=== PATIENT | male | born 1955 | race American Indian/Alaskan Native ===

== ENCOUNTER 2020-09-07 12:16 | Inpatient (IN) | payer OTHER ==
[2020-09-07] MEDS ORDERED: cloNIDine 0.1 MG TAB PO ONE (14:52)
[2020-09-07] MEDS ORDERED: KETOROLAC 30 MG/1 ML INJ IV ONE (15:11)
--- NOTE | 2020-09-07 15:13 | Emergency Department Report ---
- General Chief complaint: Weakness Stated complaint: HIP PAIN Time Seen by Provider: 09/07/20 14:19 Source: patient, EMS Mode of arrival: Stretcher Limitations: Physical Limitation - History of Present Illness Initial comments: 65-year-old male with a past medical history of hypertension and diabetes noncompliant with meds presents to the hospital with generalized weakness and f all. Patient overall is a very poor historian. Apparently he lives with his girlfriend who notified EMS. Patient states he has had generalized weakness and generalized muscle skeletal pain for greater 1 year and seems to have fallen several times recently. Patient states he needs walker assistance to ambulate but does not have much room in his residence for a walker since it is small and congested with objects. He apparently fell today and expressed left hip pain to nurse however, change the site to right hip. Patient also thinks year is 1995. But he knows his age, oriented to self, and knows he is in the hospital. Patient admits to noncompliance with his medications because he does not like taking tablets. He also admits to marijuana use. Patient primarily complains of generalized muscle skeletal pain as opposed to focal pain. Patient also denies infectious symptoms including cough or fever. Flexion do not have contact #4 his girlfriend. His sister call from [place] and I requested that she have the girlfriend called the ED since I do not have a way to contact her so that I might be to obtain additional collateral information - Related Data Allergies Allergy/AdvReac Type Severity Reaction Status Date / Time No Known Allergies Allergy Unverified 09/07/20 14:22 ED Review of Systems ROS: Stated complaint: HIP PAIN Other details as noted in HPI Comment: All other systems reviewed and negative ED Past Medical Hx - Past Medical History Hx Diabetes: Yes - Surgical History Past Surgical History?: No - Social History Smoking Status: Current Every Day Smoker Substance Use Type: Marijuana ED Physical Exam - General Limitations: Physical Limitation - Other Other exam information: General: No acute distress, thin appearing with Head: Atraumatic Eyes: normal appearance ENT: Moist mucous membranes Neck: Normal appearance, no midline tenderness Chest: Clear to auscultation bilaterally CV: Regular rate and rhythm Abdomen: Soft, normal bowel sounds, nontender, nondistended, no rebound or guarding Back: Normal inspection Extremity: Normal inspection, full range of motion, no muscle skeletal pain with movement of extremities including hips, knees, and ankles Neuro: Alert O x 2, no facial asymmetry, speech clear, no gross motor sensory deficit Psych: Appropriate behavior Skin: Discoid hyperpigmented areas to bilateral upper extremities. Loose skin over abdomen ED Course Vital Signs 09/07/20 09/07/20 14:12 15:23 Temperature 98.5 F Pulse Rate 66 70 Respiratory 18 Rate Blood Pressure 198/134 177/81 O2 Sat by Pulse 99 Oximetry - Consultations Consultation #1: 09/07/20 17:[address] Ignacio on-call assembler fishing floats who recommends calcitonin 4 units/kg twice daily for hypercalcemia. He will consult on the patient during admission ED Medical Decision Making - Lab Data Result diagrams: 09/07/20 15:28 09/07/20 17:01 Lab Results 09/07/20 09/07/20 09/07/20 Range/Units 14:40 15:28 15:28 WBC 9.0 (4.5-11.0) K/mm3 RBC 3.59 L (3.65-5.03) M/mm3 Hgb 10.2 L (11.8-15.2) gm/dl Hct 30.4 L (35.5-45.6) % MCV 85 (84-94) fl MCH 28 (28-32) pg MCHC 34 (32-34) % RDW 13.6 (13.2-15.2) % Plt Count 356 (140-440) K/mm3 Lymph % (Auto) 18.2 (13.4-35.0) % Williamson % (Auto) 7.5 H (0.0-7.3) % Eos % (Auto) 1.6 (0.0-4.3) % Baso % (Auto) 0.4 (0.0-1.8) % Lymph # (Auto) 1.6 (1.2-5.4) K/mm3 Williamson # (Auto) 0.7 (0.0-0.8) K/mm3 Eos # (Auto) 0.1 (0.0-0.4) K/mm3 Baso # (Auto) 0.0 (0.0-0.1) K/mm3 Seg Neutrophils % 72.3 H (40.0-70.0) % Seg Neutrophils # 6.5 (1.8-7.7) K/mm3 Sodium 135 L (137-145) mmol/L Potassium 2.8 L* (3.6-5.0) mmol/L Chloride 94.9 L (98-107) mmol/L Carbon Dioxide 30 (22-30) mmol/L Anion Gap 13 mmol/L BUN 21 H (9-20) mg/dL Creatinine 1.1 (0.8-1.3) mg/dL Estimated GFR > 60 ml/min BUN/Creatinine Ratio 19 % Glucose 97 (75-100) mg/dL POC Glucose 87 (70-105) mg/dL Calcium > 13.0 H* (8.4-10.2) mg/dL Magnesium (1.7-2.3) mg/dL Total Bilirubin 0.20 (0.1-1.2) mg/dL AST 38 (5-40) units/L ALT 17 (7-56) units/L Alkaline Phosphatase 126 (35-129) units/L Total Creatine Kinase 146 (55-170) units/L Troponin T 0.014 (0.00-0.029) ng/mL Total Protein 6.5 (6.3-8.2) g/dL Albumin 3.5 L (3.9-5) g/dL Albumin/Globulin Ratio 1.2 % TSH (0.270-4.200) mlU/mL Free T4 (0.76-1.46) ng/dL Plasma/Serum Alcohol (0-0.07) % 09/07/20 09/07/20 09/07/20 Range/Units 15:28 15:28 15:35 WBC (4.5-11.0) K/mm3 RBC (3.65-5.03) M/mm3 Hgb (11.8-15.2) gm/dl Hct (35.5-45.6) % MCV (84-94) fl MCH (28-32) pg MCHC (32-34) % RDW (13.2-15.2) % Plt Count (140-440) K/mm3 Lymph % (Auto) (13.4-35.0) % Williamson % (Auto) (0.0-7.3) % Eos % (Auto) (0.0-4.3) % Baso % (Auto) (0.0-1.8) % Lymph # (Auto) (1.2-5.4) K/mm3 Williamson # (Auto) (0.0-0.8) K/mm3 Eos # (Auto) (0.0-0.4) K/mm3 Baso # (Auto) (0.0-0.1) K/mm3 Seg Neutrophils % (40.0-70.0) % Seg Neutrophils # (1.8-7.7) K/mm3 Sodium (137-145) mmol/L Potassium (3.6-5.0) mmol/L Chloride (98-107) mmol/L Carbon Dioxide (22-30) mmol/L Anion Gap mmol/L BUN (9-20) mg/dL Creatinine (0.8-1.3) mg/dL Estimated GFR ml/min BUN/Creatinine Ratio % Glucose (75-100) mg/dL POC Glucose (70-105) mg/dL Calcium (8.4-10.2) mg/dL Magnesium 1.30 L (1.7-2.3) mg/dL Total Bilirubin (0.1-1.2) mg/dL AST (5-40) units/L ALT (7-56) units/L Alkaline Phosphatase (35-129) units/L Total Creatine Kinase (55-170) units/L Troponin T (0.00-0.029) ng/mL Total Protein (6.3-8.2) g/dL Albumin (3.9-5) g/dL Albumin/Globulin Ratio % TSH 2.730 (0.270-4.200) mlU/mL Free T4 1.34 (0.76-1.46) ng/dL Plasma/Serum Alcohol < 0.01 (0-0.07) % - EKG Data -: EKG Interpreted by Me (Multiple PVCs, nonspecific intraventricular delay) EKG shows normal: sinus rhythm, ST-T waves (no stemi) Rate: normal (69) - EKG Data When compared to previous EKG there are: previous EKG unavailable - Radiology Data Radiology results: report reviewed 1 view chest x-ray: Left upper lobe pneumonia versus atelectasis Pelvis x-ray: No acute findings CT Head: naf - Medical Decision Making Patient with a past medical history of hypertension diabetes with long-term medication compliance presents to the hospital long-term generalized weakness and recent frequent falls. Patient complains of pain all over without focal complaint. Patient also complains of a cough without fever. Chest x-ray reveals infiltrate. Lab severe significant electrolyte abnormalities including hypokalemia, hypomagnesemia, and hyperkalemia. IV magnesium and p.o. potassium provided. EKG shows a nonspecific intraventricular block. Patient received clonidine for hypertension. At time of disposition UA pending. Patient will be admitted to the hospital service for further treatment including management of hypercalcemia. IV fluids initiated in ed for hypercalcemia. Calcitonin 4 units/kg twice daily initiated as recommended by assembler fishing floats. Patient received Rocephin azithromycin for community-acquired pneumonia and Covid test/order set initiated secondary to infiltrate on chest x-ray. Critical Care Time: No Critical care attestation.: If time is entered above; I have spent that time in minutes in the direct care of this critically ill patient, excluding procedure time. ED Disposition Clinical Impression: Generalized weakness, Hypercalcemia, Hypomagnesemia, Hypokalemia, Pneumonia, Chronic hypertension, Diabetes, Confusion Disposition: OP ADMIT IP TO THIS HOSP Is pt being admited?: Yes Condition: Stable Instructions: Diabetes Mellitus Type 2 in Adults (ED), Bacterial Pneumonia (ED), Hypertension (ED) Referrals: PRIMARY CARE, [Primary Care Provider] - 3-5 Days Time of Disposition: 17:28 (DR faye/hospitalist)
--- NOTE | 2020-09-07 15:38 | XRay Report ---
CHEST 1 VIEW 09/07/2020 2:28 PM INDICATION / CLINICAL INFORMATION: cough. COMPARISON: None available. FINDINGS: SUPPORT DEVICES: None. HEART / MEDIASTINUM: No significant abnormality. LUNGS / PLEURA: Platelike atelectasis in the left lung base. Developing consolidation versus atelecta sis in the left upper lobe. No pneumothorax. ADDITIONAL FINDINGS: No significant additional findings. IMPRESSION: 1. Findings suggestive of developing left upper lobe pneumonia. Recommend clinical correlation and co ntinued follow-up until resolution. Signer Name: Mani Jj MD Signed: 09/07/2020 3:34 PM Workstation Name: [id number]
--- NOTE | 2020-09-07 15:39 | XRay Report ---
PELVIS 1 VIEW(S) INDICATION / CLINICAL INFORMATION: fall, b/l hip pain COMPARISON: None available. FINDINGS: BONES / JOINT(S): No acute fracture or subluxation. No significant arthritis. SOFT TISSUES: No significant abnormality. ADDITIONAL FINDINGS: None. Signer Name: Mani Jj MD Signed: 09/07/2020 3:34 PM Workstation Name: [id number]
[2020-09-07 15:47] LABS: Basophils % (Auto) 0.4 % (0.0-1.8); Eosinophils # (Auto) 0.1 K/mm3 (0.0-0.4); Eosinophils % (Auto) 1.6 % (0.0-4.3); Hematocrit 30.4 % (35.5-45.6); Hemoglobin 10.2 gm/dl (11.8-15.2); Lymphocytes # (Auto) 1.6 K/mm3 (1.2-5.4); Lymphocytes % (Auto) 18.2 % (13.4-35.0); Mean Corpuscular HGB Conc 34 % (32-34); Mean Corpuscular Volume 85 fl (84-94); Monocytes # (Auto) 0.7 K/mm3 (0.0-0.8); Monocytes % (Auto) 7.5 % (0.0-7.3); Platelet Count 356 K/mm3 (140-440); Red Blood Count 3.59 M/mm3 (3.65-5.03); Red Cell Distribution Width 13.6 % (13.2-15.2)
[2020-09-07 16:04] LABS: Alanine Aminotransferase 17 units/L (7-56); Albumin 3.5 g/dL (3.9-5); BUN/Creatinine Ratio 19; Blood Urea Nitrogen 21 mg/dL (9-20); Hemolysis Index 2
[2020-09-07 16:10] LABS: Free T4 (Free Thyroxine) 1.34 ng/dL (0.76-1.46)
[2020-09-07 16:17] LABS: Calcium > 13.0 mg/dL (8.4-10.2)
--- NOTE | 2020-09-07 16:35 | Cat Scan Report ---
CT head/brain wo con INDICATION / CLINICAL INFORMATION: 65 years Male; Recent falls, mild confusion. TECHNIQUE: Routine CT head without contrast. All CT scans at this location are performed using CT dos e reduction for ALARA by means of automated exposure control. COMPARISON: None. FINDINGS: BRAIN / INTRACRANIAL CONTENTS: No acute hemorrhage, mass effect, midline shift, hydrocephalus, or acu te, large territorial infarct. Mild cerebral atrophy. Moderate degree of hippocampal atrophy suggested bilaterally. There are mild areas of decreased attenuation in the white matter of the cerebral hemispheres. These are nonspecific findings and may be related to microangiopathy (hypertension, diabetes, atheroscleros is), given the patient's age. CRANIOCERVICAL JUNCTION: No significant abnormality. ORBITS: No significant abnormality of visualized orbits. SINUSES / MASTOIDS: Small mucous retention cyst/polyp seen in the maxillary antra. ADDITIONAL FINDINGS: Subcutaneous soft tissue swelling seen along the posterior calvarium-would quest ion prior trauma in these regions. No signs of underlying calvarial fracture appreciated. Bilateral temporomandibular joint disease noted. IMPRESSION: 1. No focal mass, intracranial hemorrhage, hydrocephalus, or acute, large territorial infarct. Signer Name: Jovani Cruz MD, III Signed: 09/07/2020 4:30 PM Workstation Name: [id number]
[2020-09-07] MEDS ORDERED: POTASSIUM CHLORIDE ER 20 MEQ TAB PO ONE (16:38)
[2020-09-07] MEDS ORDERED: AZITHROMYCIN/NS 500 MG/250 ML 500 MG/250 ML BAG IV ONE (16:41)
[2020-09-07] MEDS ORDERED: cefTRIAXone/NS 2 GM/100 ML 2 GM/100 ML BAG IV ONE (16:41)
[2020-09-07] MEDS ORDERED: SODIUM CHLORIDE 0.9% 1000 ML 1,000 ML IV ONE (17:11)
[2020-09-07] MEDS ORDERED: SODIUM CHLORIDE 0.9% 250ML 250 ML IV ONE (17:12)
[2020-09-07 17:36] LABS: C-Reactive Protein 1.6 mg/dL (0.00-1.30)
[2020-09-07] MEDS ORDERED: SODIUM CHLORIDE 0.45% 1000 ML 1,000 ML IV SCH (18:00)
[2020-09-07] MEDS ORDERED: FUROSEMIDE 40 MG/4 ML INJ IV NR (18:04)
--- NOTE | 2020-09-07 18:08 | History and Physical Report ---
History of Present Illness Date of examination: 09/07/20 Chief complaint: Weakness History of present illness: 65-year-old male with history of hypertension and diabetes noncompliant with meds was brought to the hospital with generalized weakness and fall. Patient overall is a very poor historian. Apparently he lives with his girlfriend who notified EMS. Patient complained of generalized weakness and generalized muscle skeletal pain for greater 1 year and seems to have fallen several times recently. Patient states he needs walker assistance to ambulate . He apparently fell today and expressed left hip pain to nurse however, change the site to right hip. Patient also thinks year is 1995. Patient is confused. He also admits to marijuana use. Patient primarily complains of generalized muscle skeletal pain as opposed to focal pain. Patient also denies infectious symptoms including cough or fever. In the emergency room patient is found to have left-sided pneumonia also patient potassium is 2.8 calcium is 13.2 magnesium 1.3 and albumin 3.5 Past History Past Medical History: diabetes, hypertension Medications and Allergies Allergies Allergy/AdvReac Type Severity Reaction Status Date / Time No Known Allergies Allergy Unverified 09/07/20 14:22 Active Meds: Active Medications Calcitonin [place] (Calcitonin,[place],Synthetic 400 Unit/2 Ml Inj Mdv) 200 unit 4 unit/kg (200 unit) IM Q12HR [facility] Famotidine (Famotidine 20 Mg Tab) 20 mg PO BID [facility] Heparin Sodium (Porcine) (Heparin 5,000 Unit/1 Ml Vial) 5,000 unit SUB-Q Q8HR [facility] Sodium Chloride (Nacl 0.45% 1000 Ml) 1,000 mls @ 75 mls/hr IV DIRECT [facility] Ceftriaxone Sodium (Rocephin/Ns 2 Gm/100 Ml) 2 gm in 100 mls @ 200 mls/hr IV Q24H [facility]; Protocol Azithromycin (Zithromax/Ns) 500 mg in 250 mls @ 250 mls/hr IV Q24H [facility]; Protocol Potassium Chloride (Kcl 10meq/100ml) 10 meq in 100 mls @ 100 mls/hr IV Q1H [facility] Stop: 09/07/20 23:59 Magnesium Sulfate (Magnesium Sulfate 2gm/50ml) 2 gm in 50 mls @ 25 mls/hr IV ONCE ONE Stop: 09/07/20 20:00 Review of Systems Constitutional: weakness Musculoskeletal: muscle weakness, frequent falls Exam - Constitutional Vitals: Temp Pulse Resp BP Pulse Ox 98.5 F 70 18 177/81 99 09/07/20 14:12 09/07/20 15:23 09/07/20 14:12 09/07/20 15:23 09/07/20 14:12 General appearance: Present: no acute distress, well-nourished - EENT Eyes: Present: PERRL ENT: hearing intact, clear oral mucosa - Neck Neck: Present: supple, normal ROM - Respiratory Respiratory effort: normal Respiratory: bilateral: diminished - Cardiovascular Heart Sounds: Present: S1 & S2. Absent: rub, click - Extremities Extremities: pulses symmetrical, No edema Peripheral Pulses: within normal limits - Abdominal General gastrointestinal: Present: soft, non-tender, non-distended, normal bowel sounds Male genitourinary: Present: normal - Integumentary Integumentary: Present: clear, warm, dry - Musculoskeletal Musculoskeletal: gait normal, strength equal bilaterally - Psychiatric Psychiatric: no appropriate mood/affect, no intact judgment & insight - Neurologic Neurologic: CNII-XII intact, moves all extremities HEART Score - HEART Score Troponin: Troponin T 0.014 ng/mL (0.00-0.029) 09/07/20 15:28 Results - Labs CBC & Chem 7: 09/07/20 15:28 09/07/20 17:01 Labs: Laboratory Last Values WBC 9.0 K/mm3 (4.5-11.0) 09/07/20 15: RBC 3.59 M/mm3 (3.65-5.03) L 09/07/20 15:28 Hgb 10.2 gm/dl (11.8-15.2) L 09/07/20 15:28 Hct 30.4 % (35.5-45.6) L 09/07/20 15:28 MCV 85 fl (84-94) 09/07/20 15: MCH 28 pg (28-32) 09/07/20 15: MCHC 34 % (32-34) 09/07/20 15:28 RDW 13.6 % (13.2-15.2) 09/07/20 15:28 Plt Count 356 K/mm3 (140-440) 09/07/20 15:28 Lymph % (Auto) 18.2 % (13.4-35.0) 09/07/20 15:28 Howell % (Auto) 7.5 % (0.0-7.3) H 09/07/20 15:28 Eos % (Auto) 1.6 % (0.0-4.3) 09/07/20 15: Baso % (Auto) 0.4 % (0.0-1.8) 09/07/20 15: Lymph # (Auto) 1.6 K/mm3 (1.2-5.4) 09/07/20 15: Howell # (Auto) 0.7 K/mm3 (0.0-0.8) 09/07/20 15: Eos # (Auto) 0.1 K/mm3 (0.0-0.4) 09/07/20: Baso # (Auto) 0.0 K/mm3 (0.0-0.1) 09/07/20 15: Seg Neutrophils % 72.3 % (40.0-70.0) H 09/07/20 15: Seg Neutrophils # 6.5 K/mm3 (1.8-7.7) 09/07/20 15:28 D-Dimer 472.35 ng/mlDDU (0-234) H 09/07/20 17:01 Sodium 135 mmol/L (137-145) L 09/07/20 15: Potassium 2.8 mmol/L (3.6-5.0) L* 09/07/20 15: Chloride 94.9 mmol/L (98-107) L 09/07/20 15: Carbon Dioxide 30 mmol/L (22-30) 09/07/20 15:28 Anion Gap 13 mmol/L 09/07/20 15:28 BUN 21 mg/dL (9-20) H 09/07/20 15:28 Creatinine 1.1 mg/dL (0.8-1.3) 09/07/20 15:28 Estimated GFR > 60 ml/min 09/07/20 15:28 BUN/Creatinine Ratio 19 % 09/07/20 15:28 Glucose 91 mg/dL (75-100) 09/07/20 17:01 POC Glucose 87 mg/dL (70-105) 09/07/20 14:40 Calcium > 13.0 mg/dL (8.4-10.2) H* 09/07/20 15: Magnesium 1.30 mg/dL (1.7-2.3) L 09/07/20 15: Ferritin 389.0 ng/mL (30.0-300.0) H 09/07/20 17: Total Bilirubin 0.20 mg/dL (0.1-1.2) 09/07/20 15: AST 38 units/L (5-40) 09/07/20 15: ALT 17 units/L (7-56) 09/07/20 15: Alkaline Phosphatase 126 units/L (35-129) 09/07/20 15: Lactate Dehydrogenase 335 units/L (91-180) H 09/07/20 17: Total Creatine Kinase 146 units/L (55-170) 09/07/20 15: Troponin T 0.014 ng/mL (0.00-0.029) 09/07/20: C-Reactive Protein 1.60 mg/dL (0.00-1.30) H 09/07/20 17: Total Protein 6.5 g/dL (6.3-8.2) 09/07/20 15: Albumin 3.5 g/dL (3.9-5) L 09/07/20 15: Albumin/Globulin Ratio 1.2 % 09/07/20 15: TSH 2.730 mlU/mL (0.270-4.200) 09/07/20 15: Free T4 1.34 ng/dL (0.76-1.46) 09/07/20: Plasma/Serum Alcohol < 0.01 % (0-0.07) 09/07/20 15: - Imaging and Cardiology CT Scan - head: image reviewed Assessment and Plan - Patient Problems (1) Pneumonia Current Visit: Yes Status: Acute Plan to address problem: Admit the patient to the medical telemetry. Put the patient on pneumonia pathway. Rocephin 1 g IV daily. Zithromax 500 mg IV daily. DuoNeb by nebulizer every 4 hours as needed. We do the blood culture and sputum culture. Reconsult infectious disease for evaluation of Covid. Recheck CBC BMP in the morning. Heparin 5000 units subcu every 8 hours for DVT prophylaxis and Protonix 40 mg p.o. daily for GI prophylaxis. Patient is a full code (2) Chronic hypertension Current Visit: Yes Status: Acute Plan to address problem: We will monitor the blood pressure closely we will resume the home medication (3) Diabetes Current Visit: Yes Status: Acute Plan to address problem: We will put the patient on 1800 kcal ADA diet. We also put the patient on a Humalog sliding scale Accu-Chek before meals and at bedtime moderate dose cover ing. Recheck CBC BMP in the morning (4) Generalized weakness Current Visit: Yes Status: Acute Plan to address problem: We will put the patient on multivitamin 1 tablet p.o. daily. We will consult nutrition for evaluation (5) Hypercalcemia Current Visit: Yes Status: Acute Plan to address problem: We put the patient on half-normal saline at the rate of 125 cc/h. We will give Lasix 40 mg IV x1 dose. We also put the patient on calcitonin. Will consult nephrology for evaluation and treatment. Recheck CBC BMP in the morning (6) Hypokalemia Current Visit: Yes Status: Acute Plan to address problem: We will put the patient on potassium IV 10 mEq x 6 dose. We will recheck the BMP in the morning (7) Hypomagnesemia Current Visit: Yes Status: Acute Plan to address problem: We are giving 2 g of magnesium we will recheck the magnesium in the morning. (8) DVT prophylaxis Current Visit: Yes Status: Acute Plan to address problem: Patient is on heparin 5000 units subcu every 8 hours for DVT prophylaxis.
[2020-09-07] MEDS ORDERED: MULTIVITAMINS ,THERAPEUTIC TAB PO ONE (18:14)
[2020-09-07] MEDS ORDERED: MAGNESIUM SULFATE 2 GM/50 ML BAG IV ONE (19:00)
[2020-09-07] MEDS: POTASSIUM CHLORIDE 10 MEQ 10 MEQ/100 ML BAG IV SCH ×2 (20:06→22:06)
[2020-09-07] MEDS ORDERED: fentaNYL 100 MCG/2 ML INJ IV ONE ×2 (20:37→22:34)
[2020-09-07 21:26] LABS: Bacteria,Urine 1+ /HPF (Negative); Bilirubin,Urine NEG (Negative); Blood,Urine NEG (Negative); Color,Urine Straw (Yellow); Protein,Urine <15 mg/dL mg/dL (Negative); Urobilinogen,Urine < 2.0 mg/dL (<2.0)
[2020-09-07 21:28] LABS: Amphetamine Screen,Urine Negative; Benzodiazepines Screen,Urine Negative; Cannabinoid Screen,Urine Negative; Cocaine Screen,Urine Negative; Methadone Screen,Urine Negative; Opiate Screen,Urine Negative
[2020-09-07] MEDS: INSULIN LISPRO 100 UNIT/ML SUB-Q SCH (22:55)
[2020-09-07] MEDS: FAMOTIDINE 20 MG TAB PO SCH (23:18)
[2020-09-07] MEDS: HEPARIN 5,000 UNIT/1 ML VIAL SUB-Q SCH (23:19)
[2020-09-08] MEDS: CALCITONIN,SALMON,SYNTHETIC 400 UNIT/2 ML INJ MDV IM SCH ×3 (00:17→22:55)
[2020-09-08] MEDS: POTASSIUM CHLORIDE 10 MEQ 10 MEQ/100 ML BAG IV SCH ×4 (00:18→05:28)
[2020-09-08] MEDS: HEPARIN 5,000 UNIT/1 ML VIAL SUB-Q SCH ×3 (05:27→22:10)
[2020-09-08] MEDS: SODIUM CHLORIDE 0.45% 1000 ML 1,000 ML IV SCH ×2 (05:28→07:35)
[2020-09-08] MEDS: INSULIN LISPRO 100 UNIT/ML SUB-Q SCH ×4 (07:36→22:05)
[2020-09-08] MEDS: DEXTROSE 50% IN WATER (25GM) 50 ML SYRINGE IV PRN (07:36)
[2020-09-08 08:24] LABS: Basophils % (Auto) 0.4 % (0.0-1.8); Eosinophils # (Auto) 0.1 K/mm3 (0.0-0.4); Eosinophils % (Auto) 1.7 % (0.0-4.3); Hematocrit 29.3 % (35.5-45.6); Lymphocytes # (Auto) 1.3 K/mm3 (1.2-5.4); Lymphocytes % (Auto) 16.3 % (13.4-35.0); Mean Corpuscular HGB Conc 34 % (32-34); Mean Corpuscular Volume 85 fl (84-94); Monocytes # (Auto) 0.5 K/mm3 (0.0-0.8); Monocytes % (Auto) 6.4 % (0.0-7.3); Platelet Count 311 K/mm3 (140-440); Red Blood Count 3.47 M/mm3 (3.65-5.03); Red Cell Distribution Width 14.1 % (13.2-15.2)
--- NOTE | 2020-09-08 08:28 | Progress Note ---
Assessment and Plan Assessment and plan: (1) Pneumonia Current Visit: Yes Status: Acute Plan to address problem: Admit the patient to the medical telemetry. Put the patient on pneumonia pathway. Rocephin 1 g IV daily. Zithromax 500 mg IV daily. DuoNeb by nebulizer every 4 hours as needed. We do the blood culture and sputum culture. Reconsult infectious disease for evaluation of Covid. Recheck CBC BMP in the morning. Heparin 5000 units subcu every 8 hours for DVT prophylaxis and Protonix 40 mg p.o. daily for GI prophylaxis. Patient is a full code (2) Chronic hypertension Current Visit: Yes Status: Acute Plan to address problem: We will monitor the blood pressure closely we will resume the home medication (3) Diabetes Current Visit: Yes Status: Acute Plan to address problem: We will put the patient on 1800 kcal ADA diet. We also put the patient on a Humalog sliding scale Accu-Chek before meals and at bedtime moderate dose covering. Recheck CBC BMP in the morning (4) Generalized weakness Current Visit: Yes Status: Acute Plan to address problem: We will put the patient on multivitamin 1 tablet p.o. daily. We will consult nutrition for evaluation (5) Hypercalcemia Current Visit: Yes Status: Acute Plan to address problem: We put the patient on half-normal saline at the rate of 125 cc/h. We will give Lasix 40 mg IV x1 dose. We also put the patient on calcitonin. Will consult nephrology for evaluation and treatment. Recheck CBC BMP in the morning (6) Hypokalemia Current Visit: Yes Status: Acute Plan to address problem: We will put the patient on potassium IV 10 mEq x 6 dose. We will recheck the BMP in the morning (7) Hypomagnesemia Current Visit: Yes Status: Acute Plan to address problem: We are giving 2 g of magnesium we will recheck the magnesium in the morning. (8) DVT prophylaxis Current Visit: Yes Status: Acute Plan to address problem: Patient is on heparin 5000 units subcu every 8 hours for DVT prophylaxis. 09/08/2020 -Patient is on IV antibiotics for pneumonia -Electrolyte replacement protocol, BMP from this morning is pending -PT OT evaluation -CT head is negative for acute intracranial findings -Confusion is likely due to metabolic encephalopathy -Blood sugar is within normal limits -Nephrology is consulted for the management of hypercalcemia -ID is consulted for the management of pneumonia, suspected Covid and Covid test is pending History Interval history: Patient was seen and evaluated this morning Patient is complaining generalized weakness, he said it has been going on for a while Hospitalist Physical - Physical exam Narrative exam: Not in cardiopulmonary distress. The patient appeared well nourished and normally developed. Vital signs as documented. Head exam is unremarkable. No scleral icterus . Neck is without jugular venous distension, thyromegaly, or carotid bruits. Lungs are clear to auscultation. Cardiac exam reveals regular rate and Rhythm. Abdominal exam reveals normal bowel sounds, nontender, no organomegaly. Extremities are nonedematous and both femoral and pedal pulses are normal. SPA ATTENDANT: Alert and oriented 3. No focal weakness. - Constitutional Vitals: Temp Pulse Resp BP Pulse Ox 97.6 F 73 17 152/79 100 09/08/20 05:05 09/08/20 05:05 09/08/20 05:05 09/08/20 05:05 09/08/20 05:05 General appearance: Present: no acute distress, well-nourished HEART Score - HEART Score Troponin: Troponin T 0.014 ng/mL (0.00-0.029) 09/07/20 15:28 Results - Labs CBC & Chem 7: 09/08/20 08:11 09/08/20 08:11 Labs: Laboratory Last Values WBC 8.3 K/mm3 (4.5-11.0) 09/08/20 08:11 RBC 3.47 M/mm3 (3.65-5.03) L 09/08/20 08:11 Hgb 10.0 gm/dl (11.8-15.2) L 09/08/20 08:11 Hct 29.3 % (35.5-45.6) L 09/08/20 08:11 MCV 85 fl (84-94) 09/08/20 08:11 MCH 29 pg (28-32) 09/08/20 08:11 MCHC 34 % (32-34) 09/08/20 08:11 RDW 14.1 % (13.2-15.2) 09/08/20 08:11 Plt Count 311 K/mm3 (140-440) 09/08/20 08:11 Lymph % (Auto) 16.3 % (13.4-35.0) 09/08/20 08:11 [place] % (Auto) 6.4 % (0.0-7.3) 09/08/20 08:11 Eos % (Auto) 1.7 % (0.0-4.3) 09/08/20 08:11 Baso % (Auto) 0.4 % (0.0-1.8) 09/08/20 08:11 Lymph # (Auto) 1.3 K/mm3 (1.2-5.4) 09/08/20 08:11 [place] # (Auto) 0.5 K/mm3 (0.0-0.8) 09/08/20 08:11 Eos # (Auto) 0.1 K/mm3 (0.0-0.4) 09/08/20 08:11 Baso # (Auto) 0.0 K/mm3 (0.0-0.1) 09/08/20 08:11 Seg Neutrophils % 75.2 % (40.0-70.0) H 09/08/20 08:11 Seg Neutrophils # 6.2 K/mm3 (1.8-7.7) 09/08/20 08:11 D-Dimer 472.35 ng/mlDDU (0-234) H 09/07/20 17:01 Sodium 135 mmol/L (137-145) L 09/07/20 15:28 Potassium 2.8 mmol/L (3.6-5.0) L* 09/07/20 15:28 Chloride 94.9 mmol/L (98-107) L 09/07/20 15:28 Carbon Dioxide 30 mmol/L (22-30) 09/07/20 15:28 Anion Gap 13 mmol/L 09/07/20 15:28 BUN 21 mg/dL (9-20) H 09/07/20 15:28 Creatinine 1.1 mg/dL (0.8-1.3) 09/07/20 15:28 Estimated GFR > 60 ml/min 09/07/20 15:28 BUN/Creatinine Ratio 19 % 09/07/20 15:28 Glucose 91 mg/dL (75-100) 09/07/20 17:01 POC Glucose 67 mg/dL (70-105) L 09/08/20 07:28 Calcium > 13.0 mg/dL (8.4-10.2) H* 09/07/20 15: Magnesium 1.30 mg/dL (1.7-2.3) L 09/07/20 15: Ferritin 389.0 ng/mL (30.0-300.0) H 09/07/20 17: Total Bilirubin 0.20 mg/dL (0.1-1.2) 09/07/20 15: AST 38 units/L (5-40) 09/07/20 15: ALT 17 units/L (7-56) 09/07/20 15: Alkaline Phosphatase 126 units/L (35-129) 09/07/20 15: Lactate Dehydrogenase 335 units/L (91-180) H 09/07/20 17: Total Creatine Kinase 146 units/L (55-170) 09/07/20 15: Troponin T 0.014 ng/mL (0.00-0.029) 09/07/20 15: C-Reactive Protein 1.60 mg/dL (0.00-1.30) H 09/07/20 17: Total Protein 6.5 g/dL (6.3-8.2) 09/07/20 15: Albumin 3.5 g/dL (3.9-5) L 09/07/20 15: Albumin/Globulin Ratio 1.2 % 09/07/20 15: TSH 2.730 mlU/mL (0.270-4.200) 09/07/20 15: Free T4 1.34 ng/dL (0.76-1.46) 09/07/20 15:28 Urine Color Straw (Yellow) 09/07/20 21: Urine Turbidity Clear (Clear) 09/07/20 21: Urine pH 7.0 (5.0-7.0) 09/07/20 21: Ur Specific [place] 1.005 (1.003-1.030) 09/07/20 21: Urine Protein <15 mg/dl mg/dL (Negative) 09/07/20 21: Urine Glucose (UA) Neg mg/dL (Negative) 09/07/20 21: Urine Ketones Neg mg/dL (Negative) 09/07/20 21: Urine Blood Neg (Negative) 09/07/20 21:05 Urine Nitrite Neg (Negative) 09/07/20 21:05 Urine Bilirubin Neg (Negative) 09/07/20 21:05 Urine Urobilinogen < 2.0 mg/dL (<2.0) 09/07/20 21:05 Ur Leukocyte Esterase Neg (Negative) 09/07/20 21:05 Urine WBC (Auto) 1.0 /HPF (0.0-6.0) 09/07/20 21:05 Urine RBC (Auto) 1.0 /HPF (0.0-6.0) 09/07/20 21:05 Urine Bacteria (Auto) 1+ /HPF (Negative) 09/07/20 21:05 Urine Opiates Screen Negative 09/07/20 21:05 Urine Methadone Screen Negative 09/07/20 21:05 Ur Barbiturates Screen Negative 09/07/20 21:05 Ur Phencyclidine Scrn Negative 09/07/20 21:05 Ur Amphetamines Screen Negative 09/07/20 21:05 U Benzodiazepines Scrn Negative 09/07/20 21:05 Urine Cocaine Screen Negative 09/07/20 21:05 U Marijuana (THC) Screen Negative 09/07/20 21:05 Drugs of Abuse Note Disclamer 09/07/20 21:05 Plasma/Serum Alcohol < 0.01 % (0-0.07) 09/07/20 15:28 Microbiology: Microbiology 09/07/20 17:01 Peripheral/Venous Blood Culture - Preliminary Culture in Progress 09/07/20 17:01 Peripheral/Venous Blood Culture - Preliminary Culture in Progress Monique/IV: Voiding Method Incontinent Active Medications - Current Medications Current Medications: Generic Name Dose Route Start Last Admin Trade Name Freq PRN Reason Stop Dose Admin Calcitonin [place] 200 unit 09/07/20 22:00 09/08/20 00:17 Calcitonin,[place],Synthetic 400 Unit/2 Ml Inj Mdv 4 unit/kg (200 unit) 200 unit IM Administration Q12HR [facility] Dextrose 50 ml 09/07/20 18:15 09/08/20 07:36 Dextrose 50% In Water (25gm) 50 Ml Syringe IV 50 ml Q30MIN PRN Administration Hypoglycemia Protocol Famotidine 20 mg 09/07/20 22:00 09/07/20 23:18 Famotidine 20 Mg Tab PO 20 mg BID [facility] Administration Heparin Sodium (Porcine) 5,000 unit 09/07/20 22:00 09/08/20 05:27 Heparin 5,000 Unit/1 Ml Vial SUB-Q 5,000 unit Q8HR [facility] Administration Ceftriaxone Sodium 2 gm in 100 mls @ 200 mls/hr 09/08/20 18:00 Rocephin/Ns 2 Gm/100 Ml IV Q24H [facility] Protocol Azithromycin 500 mg in 250 mls @ 250 mls/hr 09/08/20 18:00 Zithromax/Ns IV Q24H [facility] Protocol Sodium Chloride 1,000 mls @ 125 mls/hr 09/07/20 19:00 09/08/20 07:35 Nacl 0.45% 1000 Ml IV 125 mls/hr DIRECT [facility] Administration Insulin Human Lispro 0 unit 09/07/20 22:00 09/08/20 07:36 Insulin Lispro 100 Unit/Ml SUB-Q Not Given ACHS [facility] Protocol Multivitamins 1 each 09/08/20 10:00 Multivitamins ,Therapeutic Tab PO QDAY [facility]
[2020-09-08 08:42] LABS: BUN/Creatinine Ratio 19; Blood Urea Nitrogen 19 mg/dL (9-20); Hemolysis Index 1
[2020-09-08 09:00] LABS: Calcium 12.7 mg/dL (8.4-10.2)
[2020-09-08] MEDS ORDERED: POTASSIUM CHLORIDE 20 MEQ PACKET FEEDTUBE ONE (09:05)
[2020-09-08] MEDS: MULTIVITAMINS ,THERAPEUTIC TAB PO SCH (09:38)
[2020-09-08] MEDS: FAMOTIDINE 20 MG TAB PO SCH ×2 (09:38→22:10)
[2020-09-08] MEDS ORDERED: SODIUM CHLORIDE 0.45% 1000 ML 1,000 ML with POTASSIUM CHLORIDE 20 MEQ IV SCH (09:39)
--- NOTE | 2020-09-08 09:41 | Consultation ---
History of Present Illness - Reason for Consult Consult date: 09/08/20 other Requesting physician: COCO FONTANEZ - History of Present Illness 65-year-old male with a past medical history of hypertension and diabetes noncompliant with meds presents to the hospital with generalized weakness and fall. Patient overall is a very poor historian. Apparently he lives with his girlfriend who notified EMS. Patient states he has had generalized weakness and generalized muscle skeletal pain for greater 1 year and seems to have fallen several times recently. Patient states he needs walker assistance to ambulate but does not have much room in his residence for a walker since it is small and congested with objects. He apparently fell today and expressed left hip pain to nurse however, change the site to right hip. Patient also thinks year is 1995. But he knows his age, oriented to self, and knows he is in the hospital. Patient admits to noncompliance with his medications because he does not like taking tablets. He also admits to marijuana use. Patient primarily complains of generalized muscle skeletal pain as opposed to focal pain. Patient also denies infectious symptoms including cough or fever. ROS: Stated complaint: HIP PAIN Other details as noted in HPI Comment: All other systems reviewed and negative - Past Medical History Hx Diabetes: Yes - Surgical History Past Surgical History?: No - Social History Smoking Status: Current Every Day Smoker Substance Use Type: Marijuana - General Limitations: Physical Limitation - Other Other exam information: Past History Past Medical History: diabetes, hypertension Medications and Allergies Allergies Allergy/AdvReac Type Severity Reaction Status Date / Time No Known Allergies Allergy Unverified 09/07/20 14:22 Active Meds: Active Medications Calcitonin [place] (Calcitonin,[place],Synthetic 400 Unit/2 Ml Inj Mdv) 200 unit 4 unit/kg (200 unit) IM Q12HR [facility] Last Admin: 09/08/20 00:17 Dose: 200 unit Documented by: Dextrose (Dextrose 50% In Water (25gm) 50 Ml Syringe) 50 ml IV Q30MIN PRN; Protocol PRN Reason: Hypoglycemia Last Admin: 09/08/20 07:36 Dose: 50 ml Documented by: Famotidine (Famotidine 20 Mg Tab) 20 mg PO BID [facility] Last Admin: 09/08/20 09:38 Dose: 20 mg Documented by: Heparin Sodium (Porcine) (Heparin 5,000 Unit/1 Ml Vial) 5,000 unit SUB-Q Q8HR [facility] Last Admin: 09/08/20 05:27 Dose: 5,000 unit Documented by: Ceftriaxone Sodium (Rocephin/Ns 2 Gm/100 Ml) 2 gm in 100 mls @ 200 mls/hr IV Q24H [facility]; Protocol Azithromycin (Zithromax/Ns) 500 mg in 250 mls @ 250 mls/hr IV Q24H [facility]; Protocol Magnesium Sulfate (Magnesium Sulfate 2gm/50ml) 2 gm in 50 mls @ 25 mls/hr IV ONCE ONE Stop: 09/08/20 11:34 Potassium Chloride 20 meq/ (Sodium Chloride) 1,010 mls @ 125 mls/hr IV DIRECT [facility] Insulin Human Lispro (Insulin Lispro 100 Unit/Ml) 0 unit SUB-Q ACHS [facility]; Protocol Last Admin: 09/08/20 07:36 Dose: Not Given Documented by: Multivitamins (Multivitamins ,Therapeutic Tab) 1 each PO QDAY [facility] Last Admin: 09/08/20 09:38 Dose: 1 each Documented by: Exam - Vital Signs Vital signs: Vital Signs Temp Pulse Resp BP Pulse Ox 98.5 F 66 18 198/134 99 09/07/20 14:12 09/07/20 14:12 09/07/20 14:12 09/07/20 14:12 09/07/20 14:12 - Physical Exam Narrative exam: General: No acute distress, thin appearing with Head: Atraumatic Eyes: normal appearance ENT: Moist mucous membranes Neck: Normal appearance, no midline tenderness Chest: Clear to auscultation bilaterally CV: Regular rate and rhythm Abdomen: Soft, normal bowel sounds, nontender, nondistended, no rebound or guard ing Back: Normal inspection Extremity: Normal inspection, full range of motion, no muscle skeletal pain with movement of extremities including hips, knees, and ankles Neuro: Alert O x 2, no facial asymmetry, speech clear, no gross motor sensory deficit Psych: Appropriate behavior Skin: Discoid hyperpigmented areas to bilateral upper extremities. Loose skin over abdomen Results - Lab Results 09/08/20 08:11 09/08/20 08:11 Most recent lab results Calcium 12.7 mg/dL (8.4-10.2) H* 09/08/20 08:11 Magnesium 1.30 mg/dL (1.7-2.3) L 09/07/20 15:35 Assessment and Plan Impression: * hypercalcemia * hypokalemia * hypomagnesemia * PNA * failure to thrive * Type 2 DM * HTN * weight loss * volume depletion Plan: * calcitonin q 12, goal calcium level less than 10.5 * follow up SPEP, RAMYA level and pth * replete k and mag * ivfs * strict i/os and daily lytes * needs malignancy workup
[2020-09-08] MEDS ORDERED: NACL 0.45%/KCL 20 MEQ 20 MEQ/1,000 ML BAG IV SCH (10:30)
[2020-09-08] MEDS ORDERED: ACETAMINOPHEN 325 MG TAB PO PRN (11:56)
[2020-09-08] MEDS ORDERED: ONDANSETRON 4 MG/2 ML INJ IV PRN (11:57)
[2020-09-08] MEDS: oxyCODONE /ACETAMINOPHEN 5-325MG TAB PO PRN (12:20)
[2020-09-08] MEDS ORDERED: MAGNESIUM SULFATE 2 GM/50 ML BAG IV NR (13:30)
[2020-09-08] MEDS: D5W/0.45% NACL/KCL 20 MEQ 20 MEQ/1,000 ML BAG IV SCH (17:48)
[2020-09-08] MEDS ORDERED: AZITHROMYCIN/NS 500 MG/250 ML 500 MG/250 ML BAG IV SCH (18:00)
[2020-09-08] MEDS ORDERED: cefTRIAXone/NS 2 GM/100 ML 2 GM/100 ML BAG IV SCH (18:00)
[2020-09-09] MEDS: D5W/0.45% NACL/KCL 20 MEQ 20 MEQ/1,000 ML BAG IV SCH (02:44)
[2020-09-09 05:55] LABS: BUN/Creatinine Ratio 16; Blood Urea Nitrogen 16 mg/dL (9-20); Calcium 11.3 mg/dL (8.4-10.2); Hemolysis Index 4
[2020-09-09 06:00] LABS: Alanine Aminotransferase 17 units/L (7-56); Albumin 3.3 g/dL (3.9-5); BUN/Creatinine Ratio 15; Blood Urea Nitrogen 15 mg/dL (9-20); Hemolysis Index 32
[2020-09-09] MEDS: HEPARIN 5,000 UNIT/1 ML VIAL SUB-Q SCH ×2 (06:11→18:06)
--- NOTE | 2020-09-09 09:08 | Progress Note ---
Assessment and Plan Assessment and plan: Pneumonia Pneumonia pathway. Rocephin 1 g IV daily. Zithromax 500 mg IV daily. DuoNeb by nebulizer every 4 hours as needed. Chronic hypertension Home BP meds Toxic metabolic encephalopathy. Diabetes 1800 kcal ADA diet, sliding scale Accu-Chek before meals and at bedtime moderate dose covering. Hypercalcemia Nephrology consulted. Continue calcitonin every 12 hours with a goal of less than 10.5. Check SPEP and RAMYA level. PTH decreased. Hypokalemia Replete as needed. Hypomagnesemia Replete as needed. Left hip pain DVT prophylaxis Patient is on heparin 5000 units subcu every 8 hours for DVT prophylaxis. 09/08/2020 -Patient is on IV antibiotics for pneumonia -Electrolyte replacement protocol, BMP from this morning is pending -PT OT evaluation -CT head is negative for acute intracranial findings -Confusion is likely due to metabolic encephalopathy -Blood sugar is within normal limits -Nephrology is consulted for the management of hypercalcemia -ID is consulted for the management of pneumonia, suspected Covid and Covid test is pending 09/09/2020. Continue calcitonin and follow-up calcium levels. Nephrology following. Follow-up SPEP and RAMYA levels. Continue antibiotics for pneumonia. Check CT of the chest, abdomen and pelvis given hypercalcemia. Check PTH related protein. Consider consultation with oncology. History Interval history: No new issues overnight. Hospitalist Physical - Constitutional Vitals: Temp Pulse Resp BP Pulse Ox 98 F 68 20 161/78 99 09/09/20 05:12 09/09/20 05:12 09/09/20 00:30 09/09/20 05:12 09/09/20 00:30 General appearance: Present: no acute distress, well-nourished - EENT Eyes: Present: PERRL, EOM intact ENT: hearing intact, clear oral mucosa, dentition normal - Neck Neck: Present: supple, normal ROM - Respiratory Respiratory effort: normal Respiratory: bilateral: CTA - Cardiovascular Rhythm: regular Heart Sounds: Present: S1 & S2. Absent: gallop, rub - Extremities Extremities: no ischemia, No edema, Full ROM - Abdominal General gastrointestinal: soft, non-tender, non-distended, normal bowel sounds - Integumentary Integumentary: Present: clear, warm, dry - Neurologic Neurologic: CNII-XII intact, moves all extremities HEART Score - HEART Score Troponin: Troponin T 0.014 ng/mL (0.00-0.029) 09/07/20 15:28 Results - Labs CBC & Chem 7: 09/08/20 08:11 09/09/20 04:59 Labs: Laboratory Last Values WBC 8.3 K/mm3 (4.5-11.0) 09/08/20 08:11 RBC 3.47 M/mm3 (3.65-5.03) L 09/08/20 08:11 Hgb 10.0 gm/dl (11.8-15.2) L 09/08/20 08:11 Hct 29.3 % (35.5-45.6) L 09/08/20 08:11 MCV 85 fl (84-94) 09/08/20 08:11 MCH 29 pg (28-32) 09/08/20 08:11 MCHC 34 % (32-34) 09/08/20 08:11 RDW 14.1 % (13.2-15.2) 09/08/20 08:11 Plt Count 311 K/mm3 (140-440) 09/08/20 08:11 Lymph % (Auto) 16.3 % (13.4-35.0) 09/08/20 08:11 [place] % (Auto) 6.4 % (0.0-7.3) 09/08/20 08:11 Eos % (Auto) 1.7 % (0.0-4.3) 09/08/20 08:11 Baso % (Auto) 0.4 % (0.0-1.8) 09/08/20 08:11 Lymph # (Auto) 1.3 K/mm3 (1.2-5.4) 09/08/20 08:11 [place] # (Auto) 0.5 K/mm3 (0.0-0.8) 09/08/20 08:11 Eos # (Auto) 0.1 K/mm3 (0.0-0.4) 09/08/20 08:11 Baso # (Auto) 0.0 K/mm3 (0.0-0.1) 09/08/20 08:11 Seg Neutrophils % 75.2 % (40.0-70.0) H 09/08/20 08:11 Seg Neutrophils # 6.2 K/mm3 (1.8-7.7) 09/08/20 08:11 D-Dimer 472.35 ng/mlDDU (0-234) H 09/07/20 17:01 Sodium 130 mmol/L (137-145) L 09/09/20 04:59 Sodium 131 mmol/L (137-145) L 09/09/20 04:59 Potassium 3.7 mmol/L (3.6-5.0) 09/09/20 04:59 Potassium 3.7 mmol/L (3.6-5.0) 09/09/20 04:59 Chloride 94.1 mmol/L (98-107) L 09/09/20 04:59 Chloride 94.9 mmol/L (98-107) L 09/09/20 04:59 Carbon Dioxide 27 mmol/L (22-30) 09/09/20 04:59 Carbon Dioxide 28 mmol/L (22-30) 09/09/20 04:59 Anion Gap 11 mmol/L 09/09/20 04:59 Anion Gap 14 mmol/L 09/09/20 04:59 BUN 15 mg/dL (9-20) 09/09/20 04:59 BUN 16 mg/dL (9-20) 09/09/20 04:59 Creatinine 1.0 mg/dL (0.8-1.3) 09/09/20 04:59 Creatinine 1.0 mg/dL (0.8-1.3) 09/09/20 04:59 Estimated GFR > 60 ml/min 09/09/20 04:59 Estimated GFR > 60 ml/min 09/09/20 04:59 BUN/Creatinine Ratio 15 % 09/09/20 04:59 BUN/Creatinine Ratio 16 % 09/09/20 04:59 Glucose 93 mg/dL (75-100) 09/09/20 04:59 Glucose 95 mg/dL (75-100) 09/09/20 04:59 POC Glucose 66 mg/dL (70-105) L 09/08/20 16:18 Calcium 11.0 mg/dL (8.4-10.2) H 09/09/20 04:59 Calcium 11.3 mg/dL (8.4-10.2) H 09/09/20 04:59 Magnesium 1.50 mg/dL (1.7-2.3) L 09/09/20 04:59 Ferritin 389.0 ng/mL (30.0-300.0) H 09/07/20 17:01 Total Bilirubin 0.20 mg/dL (0.1-1.2) 09/09/20 04:59 AST 38 units/L (5-40) 09/09/20 04:59 ALT 17 units/L (7-56) 09/09/20 04:59 Alkaline Phosphatase 116 units/L (35-129) 09/09/20 04:59 Lactate Dehydrogenase 335 units/L (91-180) H 09/07/20 17:01 Total Creatine Kinase 146 units/L (55-170) 09/07/20 15:28 Troponin T 0.014 ng/mL (0.00-0.029) 09/07/20 15:28 C-Reactive Protein 1.60 mg/dL (0.00-1.30) H 09/07/20 17:01 Total Protein 7.1 g/dL (6.3-8.2) 09/09/20 04:59 Albumin 3.3 g/dL (3.9-5) L 09/09/20 04:59 Albumin/Globulin Ratio 0.9 % 09/09/20 04:59 Procalcitonin < 0.05 ng/mL (<0.15) 09/07/20 17:01 TSH 2.730 mlU/mL (0.270-4.200) 09/07/20 15:28 Free T4 1.34 ng/dL (0.76-1.46) 09/07/20 15:28 PTH Intact 5.89 pg/mL (15-65) L 09/08/20 09:54 Urine Color Straw (Yellow) 09/07/20 21:05 Urine Turbidity Clear (Clear) 09/07/20 21:05 Urine pH 7.0 (5.0-7.0) 09/07/20 21:05 Ur Specific [place] 1.005 (1.003-1.030) 09/07/20 21:05 Urine Protein <15 mg/dl mg/dL (Negative) 09/07/20 21:05 Urine Glucose (UA) Neg mg/dL (Negative) 09/07/20 21:05 Urine Ketones Neg mg/dL (Negative) 09/07/20 21:05 Urine Blood Neg (Negative) 09/07/20 21:05 Urine Nitrite Neg (Negative) 09/07/20 21:05 Urine Bilirubin Neg (Negative) 09/07/20 21:05 Urine Urobilinogen < 2.0 mg/dL (<2.0) 09/07/20 21:05 Ur Leukocyte Esterase Neg (Negative) 09/07/20 21:05 Urine WBC (Auto) 1.0 /HPF (0.0-6.0) 09/07/20 21:05 Urine RBC (Auto) 1.0 /HPF (0.0-6.0) 09/07/20 21:05 Urine Bacteria (Auto) 1+ /HPF (Negative) 09/07/20 21:05 Urine Opiates Screen Negative 09/07/20 21:05 Urine Methadone Screen Negative 09/07/20 21:05 Ur Barbiturates Screen Negative 09/07/20 21:05 Ur Phencyclidine Scrn Negative 09/07/20 21:05 Ur Amphetamines Screen Negative 09/07/20 21:05 U Benzodiazepines Scrn Negative 09/07/20 21:05 Urine Cocaine Screen Negative 09/07/20 21:05 U Marijuana (THC) Screen Negative 09/07/20 21:05 Drugs of Abuse Note Disclamer 09/07/20 21:05 Plasma/Serum Alcohol < 0.01 % (0-0.07) 09/07/20 15:28 Coronavirus (PCR) Negative (Negative) 09/08/20 10:06 Microbiology: Microbiology 09/07/20 17:01 Peripheral/Venous Blood Culture - Preliminary NO GROWTH AFTER 24 HOURS 09/07/20 17:01 Peripheral/Venous Blood Culture - Preliminary NO GROWTH AFTER 24 HOURS Monique/IV: Voiding Method Incontinent Active Medications - Current Medications Current Medications: Generic Name Dose Route Start Last Admin Trade Name Freq PRN Reason Stop Dose Admin Acetaminophen 650 mg 09/08/20 11:56 Acetaminophen 325 Mg Tab PO Q6H PRN Pain, Mild (1-3) Calcitonin [place] 200 unit 09/07/20 22:00 09/08/20 22:55 Calcitonin,[place],Synthetic 400 Unit/2 Ml Inj Mdv 4 unit/kg (200 unit) 200 unit IM Administration Q12HR [facility] Dextrose 50 ml 09/07/20 18:15 09/08/20 07:36 Dextrose 50% In Water (25gm) 50 Ml Syringe IV 50 ml Q30MIN PRN Administration Hypoglycemia Protocol Famotidine 20 mg 09/07/20 22:00 09/08/20 22:10 Famotidine 20 Mg Tab PO 20 mg BID [facility] Administration Heparin Sodium (Porcine) 5,000 unit 09/07/20 22:00 09/09/20 06:11 Heparin 5,000 Unit/1 Ml Vial SUB-Q 5,000 unit Q8HR [facility] Administration Ceftriaxone Sodium 2 gm in 100 mls @ 200 mls/hr 09/08/20 18:00 09/08/20 22:10 Rocephin/Ns 2 Gm/100 Ml IV 200 mls/hr Q24H [facility] Administration Protocol Azithromycin 500 mg in 250 mls @ 250 mls/hr 09/08/20 18:00 09/08/20 17:49 Zithromax/Ns IV 250 mls/hr Q24H [facility] Administration Protocol Potassium Chloride/Dextrose/Sod Cl 20 meq in 1,000 mls @ 125 mls/hr 09/08/20 17:00 09/09/20 02:44 D5w/0.45% Nacl/Kcl 20 Meq IV 125 mls/hr DIRECT [facility] Administration Insulin Human Lispro 0 unit 09/07/20 22:00 09/08/20 22:05 Insulin Lispro 100 Unit/Ml SUB-Q Not Given ACHS [facility] Protocol Multivitamins 1 each 09/08/20 10:00 09/08/20 09:38 Multivitamins ,Therapeutic Tab PO 1 each QDAY [facility] Administration Ondansetron HCl 4 mg 09/08/20 11:57 Ondansetron 4 Mg/2 Ml Inj IV Q8H PRN Nausea And Vomiting Oxycodone/Acetaminophen 1 tab 09/08/20 12:03 09/08/20 12:20 Oxycodone /Acetaminophen 5-325mg Tab PO 1 tab Q6H PRN Administration Pain, Moderate (4-6) Nutrition/Malnutrition Assess - Dietary Evaluation Nutrition/Malnutrition Findings: Nutrition Notes Start: 09/08/20 08:59 Freq: Status: Active Protocol: Document 09/08/20 09:00 LP (Rec: 09/08/20 09:10 LP [email or web address]) Nutrition Notes Need for Assessment generated from: MD Order,passport support manager Initial or Follow up Brief Note Current Diagnosis Diabetes,Hypertension Other Pertinent Diagnosis suspected COVID-19, pneu, Current Diet Mechanical soft Labs/Tests Na 132 Pertinent Medications 1/2 NS at 125ml/hr Height 5 ft 6 in Weight 54.4 kg [place] Body Weight (kg) 64.54 BMI 19.3 Weight Status Underweight Subjective/Other Information Consult for malnutrition. Pt noted with non-compliance with medications. Pt did not answer phone. Burn Absent Trauma Absent GI Symptoms None Difficulty In Chewing Food Allergy No Minimum of two criteria No Reduced Chemical Lab Supervisor Strength Measurably Reduced (severe) #1 Nutrition Diagnosis Predicted suboptimal energy intake Etiology COVID-19 As Evidenced by Signs and Symptoms Unable to obtain nutrition hx and no intakes recorded. Is patient on ventilator? No Is Patient Ambulatory and/or Out of Bed Yes REE-([place]-St. Jeor-ambulatory/OOB) [ 1653.275 [id number]] Kcal/Kg value to use for calculation 34 Approximate Energy Requirements Using 1850 kcal/Kg Calculation Used for Recommendations Kcal/kg Additional Notes Protein needs 54-65g (1-1.2g/ kg) Fluid needs are 1ml/kcal Nutrition Intervention Change Diet Order: Continue Add Supplement/Snack (indicate name/kcal Glucerna daily /protein ) Provides kCal: 220 Provides Protein (gm) 10 Goal #1 Meet at least 80% of kcal and protein needs Anticipated Discharge Needs: Mechanical soft consistent CHO Follow-Up By: 09/10/20 Additional Comments Follow for assessment, intakes and need for diet education
--- NOTE | 2020-09-09 09:26 | Progress Note ---
Assessment and Plan Impression: * hypercalcemia * hypokalemia * hypomagnesemia * Hyponatremia * PNA * failure to thrive * Type 2 DM * HTN * weight loss * volume depletion Plan: * Continue IVF, will switch to NS given hyponatremia/hypochloremia on D5 1/2NS * Continue calcitonin q12, goal calcium level less than 10.5 * follow up SPEP, RAMYA level. PTH appropriately suppressed. Check vitamin D panel as well * replete k and mag prn * strict i/os and daily lytes * Recommend malignancy workup, agree with CT abd/pelvis/chest. CXR reviewed Subjective Date of service: 09/09/20 Principal diagnosis: hypercalcemia, weakness Interval history: Patient notes that he continues to feel poorly with back pain, weakness. Overall very uncomfortable Objective - Exam Narrative Exam: General: No acute distress, thin and chronically ill appearing, mildly tremulous Head: Atraumatic Eyes: normal appearance ENT: dry mucous membranes Neck: Normal appearance Chest: Clear to auscultation bilaterally CV: Regular rate and rhythm Abdomen: Soft, normal bowel sounds, nontender, nondistended, no rebound or guarding Back: Normal inspection Extremity: Normal inspection, full range of motion Neuro: Alert, Oriented x 3, speech clear, no gross motor sensory deficit Psych: Appropriate behavior Skin: Discoid hyperpigmented areas to bilateral upper extremities - Vital Signs Vital signs: Vital Signs - 12hr 09/08/20 09/09/20 09/09/20 23:00 00:30 05:12 Temperature 98.0 F 98 F Pulse Rate 86 68 Respiratory 20 Rate Blood Pressure 175/79 Blood Pressure 161/78 [Left] O2 Sat by Pulse 100 99 Oximetry - Lab 09/08/20 08:11 09/09/20 04:59 Most recent lab results Calcium 11.0 mg/dL (8.4-10.2) H 09/09/20 04:59 Calcium 11.3 mg/dL (8.4-10.2) H 09/09/20 04:59 Magnesium 1.50 mg/dL (1.7-2.3) L 09/09/20 04:59 Medications & Allergies - Medications Allergies/Adverse Reactions: Allergies No Known Allergies Allergy (Unverified 09/07/20 14:22) Active Medications: Generic Name Dose Route Start Last Admin Trade Name Freq PRN Reason Stop Dose Admin Acetaminophen 650 mg 09/08/20 11:56 Acetaminophen 325 Mg Tab PO Q6H PRN Pain, Mild (1-3) Calcitonin [place] 200 unit 09/07/20 22:00 09/08/20 22:55 Calcitonin,[place],Synthetic 400 Unit/2 Ml Inj Mdv 4 unit/kg (200 unit) 200 unit IM Administration Q12HR CLARICE Dextrose 50 ml 09/07/20 18:15 09/08/20 07:36 Dextrose 50% In Water (25gm) 50 Ml Syringe IV 50 ml Q30MIN PRN Administration Hypoglycemia Protocol Famotidine 20 mg 09/07/20 22:00 09/08/20 22:10 Famotidine 20 Mg Tab PO 20 mg BID CLARICE Administration Heparin Sodium (Porcine) 5,000 unit 09/07/20 22:00 09/09/20 06:11 Heparin 5,000 Unit/1 Ml Vial SUB-Q 5,000 unit Q8HR CLARICE Administration Ceftriaxone Sodium 2 gm in 100 mls @ 200 mls/hr 09/08/20 18:00 09/08/20 22:10 Rocephin/Ns 2 Gm/100 Ml IV 200 mls/hr Q24H CLARICE Administration Protocol Azithromycin 500 mg in 250 mls @ 250 mls/hr 09/08/20 18:00 09/08/20 17:49 Zithromax/Ns IV 250 mls/hr Q24H CLARICE Administration Protocol Potassium Chloride/Dextrose/Sod Cl 20 meq in 1,000 mls @ 125 mls/hr 09/08/20 1 7:00 09/09/20 02:44 D5w/0.45% Nacl/Kcl 20 Meq IV 125 mls/hr DIRECT CLARICE Administration Insulin Human Lispro 0 unit 09/07/20 22:00 09/08/20 22:05 Insulin Lispro 100 Unit/Ml SUB-Q Not Given ACHS CLARICE Protocol Multivitamins 1 each 09/08/20 10:00 09/08/20 09:38 Multivitamins ,Therapeutic Tab PO 1 each QDAY CLARICE Administration Ondansetron HCl 4 mg 09/08/20 11:57 Ondansetron 4 Mg/2 Ml Inj IV Q8H PRN Nausea And Vomiting Oxycodone/Acetaminophen 1 tab 09/08/20 12:03 09/08/20 12:20 Oxycodone /Acetaminophen 5-325mg Tab PO 1 tab Q6H PRN Administration Pain, Moderate (4-6)
[2020-09-09] MEDS: MULTIVITAMINS ,THERAPEUTIC TAB PO SCH (10:00)
[2020-09-09] MEDS ORDERED: NACL 0.9%/KCL 20 MEQ 20 MEQ/1,000 ML BAG IV SCH (10:00)
[2020-09-09] MEDS: FAMOTIDINE 20 MG TAB PO SCH (10:00)
[2020-09-09] MEDS: CALCITONIN,SALMON,SYNTHETIC 400 UNIT/2 ML INJ MDV IM SCH (10:00)
--- NOTE | 2020-09-09 11:22 | XRay Report ---
LEFT HIP 3 VIEWS INDICATION: hip pain. COMPARISON: None. IMPRESSION: No acute osseous or soft tissue abnormality. Mild osteoarthritic changes are identifi ed at the left hip. No evidence for osteonecrosis or bone lesion. Partial sacralization of the left s figueroa of L5 is noted. There are mild osteoarthritic changes of both SI joints. Signer Name: Villa Pagan Jr, MD Signed: 09/09/2020 11:18 AM Workstation Name: [id number]
[2020-09-09] MEDS: INSULIN LISPRO 100 UNIT/ML SUB-Q SCH ×2 (11:29→18:06)
--- NOTE | 2020-09-09 11:51 | Cat Scan Report ---
CT CHEST WITHOUT CONTRAST INDICATION / CLINICAL INFORMATION: Hypercalcemia--rule out malignancy. TECHNIQUE: Axial CT images were obtained through the chest without contrast. Sagittal and coronal reformatted im ages. All CT scans at this location are performed using CT dose reduction for ALARA by means of autom ated exposure control. COMPARISON: None available. FINDINGS: HEART: Heart size is normal with moderate to severe coronary artery calcifications. No obvious perica rdial effusion. THORACIC AORTA: No significant abnormality. MEDIASTINUM and CURT: There appears to be a large infiltrating mass in the anterior mediastinum measu ring up to 8.0 x 8.8 cm in axial plane. This mass extends to the anterior chest wall. The borders of this mass are poorly delineated without IV contrast. LUNGS: There is mild compressive atelectasis or infiltration in the medial left upper lobe from the p reviously described mediastinal mass. A suspicious 1.1 cm subpleural nodule in the lateral right midd le lobe is identified on axial image 57. No other soft tissue nodule or mass. Mild fibrotic changes i n the right lower lobe and mild atelectatic changes in the left lower lobe. PLEURA: Small layering left pleural effusion is identified. No pneumothorax. SKELETAL SYSTEM: There is bony destruction of the manubrium, upper sternum and left anterior ribs 1-3 . UPPER ABDOMEN: No significant abnormality. ADDITIONAL FINDINGS: There is diffuse subcutaneous edema suggesting anasarca. IMPRESSION: Limited exam without IV contrast. There appears to be a large infiltrating mass arising from the ant erior mediastinum extending to the anterior chest wall with bony destruction of the manubrium, upper sternum and left anterior ribs 1-3. A suspicious 1.1 cm right middle lobe subpleural nodule is identi fied. Small left pleural effusion. Considerations include invasive thymoma, lymphoma or metastatic di sease. Consider further evaluation with IV contrast if renal function allows. Signer Name: Villa Pagan Jr, MD Signed: 09/09/2020 11:47 AM Workstation Name: [id number]
[2020-09-09] MEDS ORDERED: AZITHROMYCIN 250 MG TAB PO SCH (12:00)
--- NOTE | 2020-09-09 12:00 | Cat Scan Report ---
CT ABDOMEN AND PELVIS WITHOUT CONTRAST HISTORY: Hypercalcemia--rule out malignancy. COMPARISON: None. TECHNIQUE: Helical CT images of the abdomen and pelvis were obtained without administration of intrav enous contrast. Sagittal and coronal reformatted images were reviewed. All CT scans at this location are performed using CT dose reduction for ALARA by means of automated exposure control. FINDINGS: There is diffuse edematous changes suggesting anasarca. The parenchymal organs are poorly defined sec ondary to edema and lack of intra-abdominal fat. The noncontrast CT appearance of the liver, biliary system, pancreas, spleen, kidneys and adrenal gla nds are grossly unremarkable. There is no evidence for bowel obstruction, large free fluid or free ai r. The bladder is unremarkable. Diffuse calcifications are noted throughout the aorta and iliac arter ies. The bony structures are mildly demineralized with degenerative changes in the lumbar spine. No suspic ious bony lesion is detected. IMPRESSION: Limited examination without IV contrast. The abdominal viscera are grossly unremarkable with no evide nce for mass, bulky adenopathy or inflammatory changes. If further evaluation is needed consider CT w ith contrast if renal function allows. Noncontrast MR may prove useful as well. Anasarca. Signer Name: Villa Pagan Jr, MD Signed: 09/09/2020 11:55 AM Workstation Name: [id number]
--- NOTE | 2020-09-09 17:52 | Consultation ---
History of Present Illness - Reason for Consult Consult date: 09/09/20 - History of Present Illness 65-year-old man past medical history hypertension, diabetes brought to the hospital with a fall secondary to generalized weakness. Also complains of generalized myalgias for the past 1 year with several recent falls. Subsequent to his fall on the day of admission he complains of hip pain. Patient is confused, as such the history is obtained from the chart. Afebrile since admission with normal white count. Covid testing negative. Normal renal function. Procalcitonin normal. Blood cultures no growth to date. Imaging personally reviewed: Chest CT: Large infiltrating mass in the anterior mediastinum with bony destruction of the manubrium, sternum. CT abdomen pelvis: No infectious abnormality. Past History Past Medical History: diabetes, hypertension Medications and Allergies Allergies Allergy/AdvReac Type Severity Reaction Status Date / Time No Known Allergies Allergy Unverified 09/07/20 14:22 Active Meds: Active Medications Acetaminophen (Acetaminophen 325 Mg Tab) 650 mg PO Q6H PRN PRN Reason: Pain, Mild (1-3) Azithromycin (Azithromycin 250 Mg Tab) 500 mg PO QDAY CLARICE; Protocol Calcitonin [place] (Calcitonin,[place],Synthetic 400 Unit/2 Ml Inj Mdv) 200 unit 4 unit/kg (200 unit) IM Q12HR CLARICE Last Admin: 09/09/20 10:00 Dose: 200 unit Documented by: Dextrose (Dextrose 50% In Water (25gm) 50 Ml Syringe) 50 ml IV Q30MIN PRN; Protocol PRN Reason: Hypoglycemia Last Admin: 09/08/20 07:36 Dose: 50 ml Documented by: Famotidine (Famotidine 20 Mg Tab) 20 mg PO BID CLARICE Last Admin: 09/09/20 10:00 Dose: 20 mg Documented by: Heparin Sodium (Porcine) (Heparin 5,000 Unit/1 Ml Vial) 5,000 unit SUB-Q Q8HR CLARICE Last Admin: 09/09/20 06:11 Dose: 5,000 unit Documented by: Ceftriaxone Sodium (Rocephin/Ns 2 Gm/100 Ml) 2 gm in 100 mls @ 200 mls/hr IV Q24H CLARICE; Protocol Last Admin: 09/08/20 22:10 Dose: 200 mls/hr Documented by: Potassium Chloride/Sodium Chloride (Ns/Kcl 20meq) 20 meq in 1,000 mls @ 125 mls/hr IV DIRECT CLARICE Insulin Human Lispro (Insulin Lispro 100 Unit/Ml) 0 unit SUB-Q ACHS CLARICE; Protocol Last Admin: 09/09/20 11:29 Dose: Not Given Documented by: Multivitamins (Multivitamins ,Therapeutic Tab) 1 each PO QDAY CLARICE Last Admin: 09/09/20 10:00 Dose: 1 each Documented by: Ondansetron HCl (Ondansetron 4 Mg/2 Ml Inj) 4 mg IV Q8H PRN PRN Reason: Nausea And Vomiting Oxycodone/Acetaminophen (Oxycodone /Acetaminophen 5-325mg Tab) 1 tab PO Q6H PRN PRN Reason: Pain, Moderate (4-6) Last Admin: 09/08/20 12:20 Dose: 1 tab Documented by: Review of Systems ROS unobtainable: due to mental status Physical Examination - Physical Exam Narrative exam: Physical Exam: Constitutional: Awake, confused Head, Ears, Nose: Normocephalic, atraumatic. External ears, nose normal Eyes: Conjunctivae/corneas clear. No icterus. No ptosis. Neck: Supple, no meningeal signs Oral: dentition fair, no thrush Cardiovascular: S1, S2 normal. Respiratory: Good air entry, clear to auscultation bilaterally GI: Soft, non-tender; bowel sounds normal. No peritoneal signs. Musculoskeletal: No pedal edema, no cyanosis. Skin: No rash or abscess Hem/Lymphatic: No palpable cervical or supraclavicular nodes. No lymphangitis Psych: Confused Neurological: Confused - Constitutional Vitals: Vital Signs Temp Pulse Resp BP Pulse Ox 97.4 F L 48 L 20 182/99 100 09/09/20 13:01 09/09/20 13:01 09/09/20 13:01 09/09/20 13:01 09/09/20 13:01 Temperature -Last 24 Hours Temperature 97.4 F Temperature 97.7 F Temperature 98 F Temperature 98.0 F Temperature 98.0 F Results - Labs CBC & Chem 7: 09/08/20 08:11 09/09/20 04:59 Labs: Abnormal lab results 09/09/20 09/09/20 Range/Units 04:59 04:59 Sodium 131 L 130 L (137-145) mmol/L Chloride 94.1 L 94.9 L (98-107) mmol/L Calcium 11.3 H 11.0 H (8.4-10.2) mg/dL Magnesium 1.50 L (1.7-2.3) mg/dL Albumin 3.3 L (3.9-5) g/dL Assessment and Plan Cultures: Blood culture no growth so far A/P: 65-year-old man past medical history hypertension, diabetes admitted with confusion, fall #Altered mental status: Probably secondary to electrolyte derangements. 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 Given normal procalcitonin, white count I doubt acute bacterial pneumonia at this time. #Diabetes: tight glycemic control for best outcomes. Recs: -Stopped antibiotics -Recommend oncology/pulmonary consult. -Follow-up blood culture Thank you for the consult, we will continue to follow. MD Srikanth [facility] O: [phone] F: [phone]
[2020-09-09] MEDS: DEXTROSE 50% IN WATER (25GM) 50 ML SYRINGE IV PRN (22:20)
[2020-09-10] MEDS: FAMOTIDINE 20 MG TAB PO SCH ×3 (00:07→21:44)
[2020-09-10] MEDS: INSULIN LISPRO 100 UNIT/ML SUB-Q SCH ×5 (00:07→22:20)
[2020-09-10] MEDS: HEPARIN 5,000 UNIT/1 ML VIAL SUB-Q SCH ×4 (00:08→21:42)
[2020-09-10] MEDS: CALCITONIN,SALMON,SYNTHETIC 400 UNIT/2 ML INJ MDV IM SCH ×3 (01:19→23:50)
[2020-09-10 06:45] LABS: Basophils % (Auto) 0.2 % (0.0-1.8); Eosinophils # (Auto) 0.1 K/mm3 (0.0-0.4); Hematocrit 29.4 % (35.5-45.6); Hemoglobin 10.1 gm/dl (11.8-15.2); Lymphocytes # (Auto) 1.3 K/mm3 (1.2-5.4); Lymphocytes % (Auto) 14.3 % (13.4-35.0); Mean Corpuscular HGB Conc 34 % (32-34); Mean Corpuscular Volume 86 fl (84-94); Monocytes # (Auto) 0.6 K/mm3 (0.0-0.8); Monocytes % (Auto) 6.2 % (0.0-7.3); Platelet Count 327 K/mm3 (140-440); Red Blood Count 3.43 M/mm3 (3.65-5.03)
[2020-09-10 07:02] LABS: Alanine Aminotransferase 14 units/L (7-56); Albumin 3.2 g/dL (3.9-5); BUN/Creatinine Ratio 20; Blood Urea Nitrogen 20 mg/dL (9-20); Hemolysis Index 2
[2020-09-10] MEDS: MULTIVITAMINS ,THERAPEUTIC TAB PO SCH (09:54)
--- NOTE | 2020-09-10 10:26 | Progress Note ---
Assessment and Plan Assessment and plan: Pneumonia Pneumonia pathway. Rocephin 1 g IV daily. Zithromax 500 mg IV daily. DuoNeb by nebulizer every 4 hours as needed. Chronic hypertension Home BP meds Toxic metabolic encephalopathy. Diabetes 1800 kcal ADA diet, sliding scale Accu-Chek before meals and at bedtime moderate dose covering. Hypercalcemia of malignancy Nephrology consulted. Continue calcitonin every 12 hours with a goal of less than 10.5. Check SPEP and RAMYA level. PTH decreased. Hypokalemia Replete as needed. Hypomagnesemia Replete as needed. Left hip pain DVT prophylaxis Patient is on heparin 5000 units subcu every 8 hours for DVT prophylaxis. 09/08/2020 -Patient is on IV antibiotics for pneumonia -Electrolyte replacement protocol, BMP from this morning is pending -PT OT evaluation -CT head is negative for acute intracranial findings -Confusion is likely due to metabolic encephalopathy -Blood sugar is within normal limits -Nephrology is consulted for the management of hypercalcemia -ID is consulted for the management of pneumonia, suspected Covid and Covid test is pending 09/09/2020. Continue calcitonin and follow-up calcium levels. Nephrology following. Follow-up SPEP and RAMYA levels. Continue antibiotics for pneumonia. Check CT of the chest, abdomen and pelvis given hypercalcemia. Check PTH related protein. Consider consultation with oncology. 09/10/2020. Chest CT revealed Large infiltrating mass in the anterior mediastinum with bony destruction of the manubrium, sternum. Oncology consultation pending. Patient with hypercalcemia of malignancy treated with calcitonin per nephrology. Antibiotics discontinued by infectious disease. Pulmonary consultation History Interval history: No new issues overnight. Hospitalist Physical - Constitutional Vitals: Temp Pulse Resp BP Pulse Ox 97.9 F 74 18 131/74 100 09/10/20 08:18 09/10/20 08:18 09/10/20 08:18 09/10/20 08:18 09/10/20 08:52 General appearance: Present: no acute distress, well-nourished - EENT Eyes: Present: PERRL, EOM intact ENT: hearing intact, clear oral mucosa, dentition normal - Neck Neck: Present: supple, normal ROM - Respiratory Respiratory effort: normal Respiratory: bilateral: CTA - Cardiovascular Rhythm: regular Heart Sounds: Present: S1 & S2. Absent: gallop, rub - Extremities Extremities: no ischemia, No edema, Full ROM - Abdominal General gastrointestinal: soft, non-tender, non-distended, normal bowel sounds - Integumentary Integumentary: Present: clear, warm, dry - Neurologic Neurologic: CNII-XII intact, moves all extremities HEART Score - HEART Score Troponin: Troponin T 0.014 ng/mL (0.00-0.029) 09/07/20 15:28 Results - Labs CBC & Chem 7: 09/10/20 05:15 09/10/20 05:15 Labs: Laboratory Last Values WBC 8.9 K/mm3 (4.5-11.0) 09/10/20 05:15 RBC 3.43 M/mm3 (3.65-5.03) L 09/10/20 05:15 Hgb 10.1 gm/dl (11.8-15.2) L 09/10/20 05:15 Hct 29.4 % (35.5-45.6) L 09/10/20 05:15 MCV 86 fl (84-94) 09/10/20 05:15 MCH 29 pg (28-32) 09/10/20 05:15 MCHC 34 % (32-34) 09/10/20 05:15 RDW 14.0 % (13.2-15.2) 09/10/20 05:15 Plt Count 327 K/mm3 (140-440) 09/10/20 05:15 Lymph % (Auto) 14.3 % (13.4-35.0) 09/10/20 05:15 [place] % (Auto) 6.2 % (0.0-7.3) 09/10/20 05:15 Eos % (Auto) 1.0 % (0.0-4.3) 09/10/20 05:15 Baso % (Auto) 0.2 % (0.0-1.8) 09/10/20 05:15 Lymph # (Auto) 1.3 K/mm3 (1.2-5.4) 09/10/20 05:15 [place] # (Auto) 0.6 K/mm3 (0.0-0.8) 09/10/20 05:15 Eos # (Auto) 0.1 K/mm3 (0.0-0.4) 09/10/20 05:15 Baso # (Auto) 0.0 K/mm3 (0.0-0.1) 09/10/20 05:15 Seg Neutrophils % 78.3 % (40.0-70.0) H 09/10/20 05:15 Seg Neutrophils # 7.0 K/mm3 (1.8-7.7) 09/10/20 05:15 D-Dimer 472.35 ng/mlDDU (0-234) H 09/07/20 17:01 Sodium 131 mmol/L (137-145) L 09/10/20 05:15 Potassium 3.5 mmol/L (3.6-5.0) L 09/10/20 05:15 Chloride 95.2 mmol/L (98-107) L 09/10/20 05:15 Carbon Dioxide 26 mmol/L (22-30) 09/10/20 05:15 Anion Gap 13 mmol/L 09/10/20 05:15 BUN 20 mg/dL (9-20) 09/10/20 05:15 Creatinine 1.0 mg/dL (0.8-1.3) 09/10/20 05:15 Estimated GFR > 60 ml/min 09/10/20 05:15 BUN/Creatinine Ratio 20 % 09/10/20 05:15 Glucose 65 mg/dL (75-100) L 09/10/20 05:15 POC Glucose 58 mg/dL (70-105) L 09/10/20 07:21 Calcium 11.0 mg/dL (8.4-10.2) H 09/10/20 05:15 Magnesium 1.50 mg/dL (1.7-2.3) L 09/09/20 04:59 Ferritin 389.0 ng/mL (30.0-300.0) H 09/07/20 17:01 Total Bilirubin 0.30 mg/dL (0.1-1.2) 09/10/20 05:15 AST 37 units/L (5-40) 09/10/20 05:15 ALT 14 units/L (7-56) 09/10/20 05:15 Alkaline Phosphatase 125 units/L (35-129) 09/10/20 05:15 Lactate Dehydrogenase 335 units/L (91-180) H 09/07/20 17:01 Total Creatine Kinase 146 units/L (55-170) 09/07/20 15:28 Troponin T 0.014 ng/mL (0.00-0.029) 09/07/20 15:28 C-Reactive Protein 1.60 mg/dL (0.00-1.30) H 09/07/20 17:01 Total Protein 6.7 g/dL (6.3-8.2) 09/10/20 05:15 Albumin 3.2 g/dL (3.9-5) L 09/10/20 05:15 Albumin/Globulin Ratio 0.9 % 09/10/20 05:15 Procalcitonin < 0.05 ng/mL (<0.15) 09/07/20 17:01 TSH 2.730 mlU/mL (0.270-4.200) 09/07/20 15:28 Free T4 1.34 ng/dL (0.76-1.46) 09/07/20 15:28 PTH Intact 5.89 pg/mL (15-65) L 09/08/20 09:54 Urine Color Straw (Yellow) 09/07/20 21:05 Urine Turbidity Clear (Clear) 09/07/20 21: Urine pH 7.0 (5.0-7.0) 09/07/20 21:05 Ur Specific [place] 1.005 (1.003-1.030) 09/07/20 21: Urine Protein <15 mg/dl mg/dL (Negative) 09/07/20 21:05 Urine Glucose (UA) Neg mg/dL (Negative) 09/07/20 21: Urine Ketones Neg mg/dL (Negative) 09/07/20 21: Urine Blood Neg (Negative) 09/07/20 21:05 Urine Nitrite Neg (Negative) 09/07/20 21:05 Urine Bilirubin Neg (Negative) 09/07/20 21:05 Urine Urobilinogen < 2.0 mg/dL (<2.0) 09/07/20 21:05 Ur Leukocyte Esterase Neg (Negative) 09/07/20 21:05 Urine WBC (Auto) 1.0 /HPF (0.0-6.0) 09/07/20 21:05 Urine RBC (Auto) 1.0 /HPF (0.0-6.0) 09/07/20 21:05 Urine Bacteria (Auto) 1+ /HPF (Negative) 09/07/20 21:05 Urine Opiates Screen Negative 09/07/20 21:05 Urine Methadone Screen Negative 09/07/20 21:05 Ur Barbiturates Screen Negative 09/07/20 21:05 Ur Phencyclidine Scrn Negative 09/07/20 21:05 Ur Amphetamines Screen Negative 09/07/20 21:05 U Benzodiazepines Scrn Negative 09/07/20 21:05 Urine Cocaine Screen Negative 09/07/20 21:05 U Marijuana (THC) Screen Negative 09/07/20 21:05 Drugs of Abuse Note Disclamer 09/07/20 21:05 Plasma/Serum Alcohol < 0.01 % (0-0.07) 09/07/20 15:28 Coronavirus (PCR) Negative (Negative) 09/08/20 10:06 Microbiology: Microbiology 09/07/20 17:01 Peripheral/Venous Blood Culture - Preliminary NO GROWTH AFTER 48 HOURS 09/07/20 17:01 Peripheral/Venous Blood Culture - Preliminary NO GROWTH AFTER 48 HOURS Monique/IV: Voiding Method Urinal Active Medications - Current Medications Current Medications: Generic Name Dose Route Start Last Admin Trade Name Freq PRN Reason Stop Dose Admin Acetaminophen 650 mg 09/08/20 11:56 Acetaminophen 325 Mg Tab PO Q6H PRN Pain, Mild (1-3) Calcitonin [place] 200 unit 09/07/20 22:00 09/10/20 01:19 Calcitonin,[place],Synthetic 400 Unit/2 Ml Inj Mdv 4 unit/kg (200 unit) Not Given IM Q12HR CLARICE Dextrose 50 ml 09/07/20 18:15 09/09/20 22:20 Dextrose 50% In Water (25gm) 50 Ml Syringe IV 50 ml Q30MIN PRN Administration Hypoglycemia Protocol Famotidine 20 mg 09/07/20 22:00 09/10/20 09:54 Famotidine 20 Mg Tab PO 20 mg BID CLARICE Administration Heparin Sodium (Porcine) 5,000 unit 09/07/20 22:00 09/10/20 05:46 Heparin 5,000 Unit/1 Ml Vial SUB-Q 5,000 unit Q8HR CLARICE Administration Potassium Chloride/Sodium Chloride 20 meq in 1,000 mls @ 125 mls/hr 09/09/20 10:00 Ns/Kcl 20meq IV DIRECT CLARICE Insulin Human Lispro 0 unit 09/07/20 22:00 09/10/20 08:26 Insulin Lispro 100 Unit/Ml SUB-Q Not Given ACHS CLARICE Protocol Multivitamins 1 each 09/08/20 10:00 09/10/20 09:54 Multivitamins ,Therapeutic Tab PO 1 each QDAY CLARICE Administration Ondansetron HCl 4 mg 09/08/20 11:57 Ondansetron 4 Mg/2 Ml Inj IV Q8H PRN Nausea And Vomiting Oxycodone/Acetaminophen 1 tab 09/08/20 12:03 09/08/20 12:20 Oxycodone /Acetaminophen 5-325mg Tab PO 1 tab Q6H PRN Administration Pain, Moderate (4-6) Nutrition/Malnutrition Assess - Dietary Evaluation Nutrition/Malnutrition Findings: Nutrition Notes Start: 09/08/20 08:59 Freq: Status: Active Protocol: Document 09/08/20 09:00 LP (Rec: 09/08/20 09:10 LP [id number]) Nutrition Notes Need for Assessment generated from: MD Order,insurance broker Initial or Follow up Brief Note Current Diagnosis Diabetes,Hypertension Other Pertinent Diagnosis suspected COVID-19, pneu, Current Diet Mechanical soft Labs/Tests Na 132 Pertinent Medications 1/2 NS at 125ml/hr Height 5 ft 6 in Weight 54.4 kg [place] Body Weight (kg) 64.54 BMI 19.3 Weight Status Underweight Subjective/Other Information Consult for malnutrition. Pt noted with non-compliance with medications. Pt did not answer phone. Burn Absent Trauma Absent GI Symptoms None Difficulty In Chewing Food Allergy No Minimum of two criteria No Reduced Esthetician Strength Measurably Reduced (severe) #1 Nutrition Diagnosis Predicted suboptimal energy intake Etiology COVID-19 As Evidenced by Signs and Symptoms Unable to obtain nutrition hx and no intakes recorded. Is patient on ventilator? No Is Patient Ambulatory and/or Out of Bed Yes REE-([place]. Jeor-ambulatory/OOB) [ 1653.275 NUTR.[id number]] Kcal/Kg value to use for calculation 34 Approximate Energy Requirements Using 1850 kcal/Kg Calculation Used for Recommendations Kcal/kg Additional Notes Protein needs 54-65g (1-1.2g/ kg) Fluid needs are 1ml/kcal Nutrition Intervention Change Diet Order: Continue Add Supplement/Snack (indicate name/kcal Glucerna daily /protein ) Provides kCal: 220 Provides Protein (gm) 10 Goal #1 Meet at least 80% of kcal and protein needs Anticipated Discharge Needs: Mechanical soft consistent CHO Follow-Up By: 09/10/20 Additional Comments Follow for assessment, intakes and need for diet education
--- NOTE | 2020-09-10 13:04 | Event Note ---
Date: 09/10/20 Full consult to follow. Differential for anterior mediastinal mass is very narrow: 4 T's (Thyroid, Thymoma, Terotoma and Terrible Lymphoma. SUggest checking thyroid function as well but ultimately patient needs tissue. No thoracic surgery available her (Unless [facility] still has privileges here) otherwise will need IR consult for biopsy. Patient has normal renal function so if contrasted study is needed should do it.
--- NOTE | 2020-09-10 15:37 | Progress Note ---
Assessment and Plan Cultures: Blood culture no growth so far A/P: 65-year-old man past medical history hypertension, diabetes admitted with confusion, fall #Altered mental status: Probably secondary to electrolyte derangements. 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 Given normal procalcitonin, white count I doubt acute bacterial pneumonia at this time. #Diabetes: tight glycemic control for best outcomes. Recs: -Recommend oncology/pulmonary consult. -Follow-up blood culture Thank you for the consult, we will sign off. Alyssa Potter MD [facility] ([facility]) O: [phone] F: [phone] Subjective Date of service: 09/10/20 Principal diagnosis: hypercalcemia, weakness Interval history: Afebrile, normal white count. Objective - Exam Narrative Exam: Physical Exam: Constitutional: Awake, confused Head, Ears, Nose: Normocephalic, atraumatic. External ears, nose normal Eyes: Conjunctivae/corneas clear. No icterus. No ptosis. Neck: Supple, no meningeal signs Oral: dentition fair, no thrush Cardiovascular: S1, S2 normal. Respiratory: Good air entry, clear to auscultation bilaterally GI: Soft, non-tender; bowel sounds normal. No peritoneal signs. Musculoskeletal: No pedal edema, no cyanosis. Skin: No rash or abscess Hem/Lymphatic: No palpable cervical or supraclavicular nodes. No lymphangitis Psych: Confused Neurological: Confused - Constitutional Vitals: Vital Signs Temp Pulse Resp BP Pulse Ox 97.9 F 83 18 150/86 99 09/10/20 12:21 09/10/20 12:21 09/10/20 12:21 09/10/20 12:21 09/10/20 12:21 Temperature -Last 24 Hours Temperature 97.9 F Temperature 97.9 F Temperature 98.2 F Temperature 98.0 F Temperature 97.9 F Temperature 98.1 F - Labs CBC & Chem 7: 09/10/20 05:15 09/10/20 05:15 Labs: Abnormal lab results 09/09/20 09/09/20 09/10/20 Range/Units 21:10 21:55 05:15 RBC (3.65-5.03) M/mm3 Hgb (11.8-15.2) gm/dl Hct (35.5-45.6) % Seg Neutrophils % (40.0-70.0) % Sodium 131 L (137-145) mmol/L Potassium 3.5 L (3.6-5.0) mmol/L Chloride 95.2 L (98-107) mmol/L Glucose 65 L (75-100) mg/dL POC Glucose 47 L 59 L (70-105) mg/dL Calcium 11.0 H (8.4-10.2) mg/dL Albumin 3.2 L (3.9-5) g/dL 09/10/20 09/10/20 Range/Units 05:15 07:21 RBC 3.43 L (3.65-5.03) M/mm3 Hgb 10.1 L (11.8-15.2) gm/dl Hct 29.4 L (35.5-45.6) % Seg Neutrophils % 78.3 H (40.0-70.0) % Sodium (137-145) mmol/L Potassium (3.6-5.0) mmol/L Chloride (98-107) mmol/L Glucose (75-100) mg/dL POC Glucose 58 L (70-105) mg/dL Calcium (8.4-10.2) mg/dL Albumin (3.9-5) g/dL
--- NOTE | 2020-09-10 16:00 | Hem/Onc Consultation ---
History of Present Illness - History of Present Illness heme/onc consult televisit via tsqrd 65yo [place] man with recent weakness, falling, eval for L hip pain since admission found to have a large anterior mediastinal mass and hypercalcemia 10-11 has been receiving calcitonin says he is slightly better. denies chest pain able to eat Soc: lives with GF, marijuana use EXAM: A/O, NAD, not confused now seems weak DATA REVIEWED BELOW Chest CT: mediastinal mass IMP: likely lymphoma, but carcinoma also possible r/o bone tumors causing hip pain hypercalcwmia due to malignancy REC: biopsy mediastinal mass los depending on results of biopsy, he will need urgent chemo or rad steroid pulse, pamidronate labs to include Uric acid, CEA, SPEP opiate meds may be needed for pain review hip imaging Vital Signs Temp Pulse Resp BP Pulse Ox 98.2 F 81 18 173/84 99 09/10/20 15:51 09/10/20 15:51 09/10/20 15:51 09/10/20 15:51 09/10/20 15:51 Temperature -Last 24 Hours Temperature 98.2 F Temperature 97.9 F Temperature 97.9 F Temperature 98.2 F Temperature 98.0 F Temperature 97.9 F Temperature 98.1 F Active Medications Calcitonin Hubbard (Calcitonin,Hubbard,Synthetic 400 Unit/2 Ml Inj Mdv) 200 unit 4 unit/kg (200 unit) IM Q12HR [facility] Last Admin: 09/10/20 12:03 Dose: 200 unit Documented by: Insulin Human Lispro (Insulin Lispro 100 Unit/Ml) 0 unit SUB-Q ACHS [facility]; Prot ocol Last Admin: 09/10/20 11:30 Dose: Not Given Documented by: Multivitamins (Multivitamins ,Therapeutic Tab) 1 each PO QDAY [facility] Last Admin: 09/10/20 09:54 Dose: 1 each Documented by: Ondansetron HCl (Ondansetron 4 Mg/2 Ml Inj) 4 mg IV Q8H PRN PRN Reason: Nausea And Vomiting Oxycodone/Acetaminophen (Oxycodone /Acetaminophen 5-325mg Tab) 1 tab PO Q6H PRN PRN Reason: Pain, Moderate (4-6) Last Admin: 09/08/20 12:20 Dose: 1 tab Documented by: Laboratory Last Values WBC 8.9 K/mm3 (4.5-11.0) 09/10/20 05:15 Hgb 10.1 gm/dl (11.8-15.2) L 09/10/20 05:15 Hct 29.4 % (35.5-45.6) L 09/10/20 05:15 Plt Count 327 K/mm3 (140-440) 09/10/20 05:15 Seg Neutrophils % 78.3 % (40.0-70.0) H 09/10/20 05:15 Creatinine 1.0 mg/dL (0.8-1.3) 09/10/20 05:15 Calcium 11.0 mg/dL (8.4-10.2) H 09/10/20 05:15 Lactate Dehydrogenase 335 units/L (91-180) H 09/07/20 17:01 Albumin 3.2 g/dL (3.9-5) L 09/10/20 05:15 Coronavirus (PCR) Negative (Negative) 09/08/20 10:06 Past History Past Medical History: diabetes, hypertension Medications and Allergies Allergies Allergy/AdvReac Type Severity Reaction Status Date / Time No Known Allergies Allergy Unverified 09/07/20 14:22 Home Medications Medication Instructions Recorded Confirmed Last Taken Type Unobtainable 09/10/20 09/10/20 Unknown History Active Meds: Active Medications Acetaminophen (Acetaminophen 325 Mg Tab) 650 mg PO Q6H PRN PRN Reason: Pain, Mild (1-3) Calcitonin Hubbard (Calcitonin,Hubbard,Synthetic 400 Unit/2 Ml Inj Mdv) 200 unit 4 unit/kg (200 unit) IM Q12HR [facility] Last Admin: 09/10/20 12:03 Dose: 200 unit Documented by: Dextrose (Dextrose 50% In Water (25gm) 50 Ml Syringe) 50 ml IV Q30MIN PRN; Protocol PRN Reason: Hypoglycemia Last Admin: 09/09/20 22:20 Dose: 50 ml Documented by: Famotidine (Famotidine 20 Mg Tab) 20 mg PO BID [facility] Last Admin: 09/10/20 09:54 Dose: 20 mg Documented by: Heparin Sodium (Porcine) (Heparin 5,000 Unit/1 Ml Vial) 5,000 unit SUB-Q Q8HR [facility] Last Admin: 09/10/20 13:56 Dose: 5,000 unit Documented by: Potassium Chloride/Sodium Chloride (Ns/Kcl 20meq) 20 meq in 1,000 mls @ 125 mls/hr IV DIRECT [facility] Insulin Human Lispro (Insulin Lispro 100 Unit/Ml) 0 unit SUB-Q ACHS [facility]; P rotocol Last Admin: 09/10/20 11:30 Dose: Not Given Documented by: Multivitamins (Multivitamins ,Therapeutic Tab) 1 each PO QDAY [facility] Last Admin: 09/10/20 09:54 Dose: 1 each Documented by: Ondansetron HCl (Ondansetron 4 Mg/2 Ml Inj) 4 mg IV Q8H PRN PRN Reason: Nausea And Vomiting Oxycodone/Acetaminophen (Oxycodone /Acetaminophen 5-325mg Tab) 1 tab PO Q6H PRN PRN Reason: Pain, Moderate (4-6) Last Admin: 09/08/20 12:20 Dose: 1 tab Documented by: Exam - Constitutional Vitals: Last Vital Signs Temp 98.2 F 09/10/20 15:51 Pulse 81 09/10/20 15:51 Resp 18 09/10/20 15:51 BP 173/84 09/10/20 15:51 Pulse Ox 99 09/10/20 15:51 Results - Labs lab Results: Laboratory Results - last 24 hr 09/09/20 09/09/20 09/10/20 21:10 21:55 00:30 WBC RBC Hgb Hct MCV MCH MCHC RDW Plt Count Lymph % (Auto) [place] % (Auto) Eos % (Auto) Baso % (Auto) Lymph # (Auto) [place] # (Auto) Eos # (Auto) Baso # (Auto) Seg Neutrophils % Seg Neutrophils # Sodium Potassium Chloride Carbon Dioxide Anion Gap BUN Creatinine Estimated GFR BUN/Creatinine Ratio Glucose POC Glucose 47 L 59 L 85 Calcium Total Bilirubin AST ALT Alkaline Phosphatase Total Protein Albumin Albumin/Globulin Ratio 09/10/20 09/10/20 09/10/20 05:15 05:15 07:21 WBC 8.9 RBC 3.43 L Hgb 10.1 L Hct 29.4 L MCV 86 MCH 29 MCHC 34 RDW 14.0 Plt Count 327 Lymph % (Auto) 14.3 [place] % (Auto) 6.2 Eos % (Auto) 1.0 Baso % (Auto) 0.2 Lymph # (Auto) 1.3 [place] # (Auto) 0.6 Eos # (Auto) 0.1 Baso # (Auto) 0.0 Seg Neutrophils % 78.3 H Seg Neutrophils # 7.0 Sodium 131 L Potassium 3.5 L Chloride 95.2 L Carbon Dioxide 26 Anion Gap 13 BUN 20 Creatinine 1.0 Estimated GFR > 60 BUN/Creatinine Ratio 20 Glucose 65 L POC Glucose 58 L Calcium 11.0 H Total Bilirubin 0.30 AST 37 ALT 14 Alkaline Phosphatase 125 Total Protein 6.7 Albumin 3.2 L Albumin/Globulin Ratio 0.9 09/10/20 11:25 WBC RBC Hgb Hct MCV MCH MCHC RDW Plt Count Lymph % (Auto) [place] % (Auto) Eos % (Auto) Baso % (Auto) Lymph # (Auto) [place] # (Auto) Eos # (Auto) Baso # (Auto) Seg Neutrophils % Seg Neutrophils # Sodium Potassium Chloride Carbon Dioxide Anion Gap BUN Creatinine Estimated GFR BUN/Creatinine Ratio Glucose POC Glucose 88 Calcium Total Bilirubin AST ALT Alkaline Phosphatase Total Protein Albumin Albumin/Globulin Ratio
[2020-09-10] MEDS ORDERED: PAMIDRONATE DISODIUM 90 MG in SODIUM CHLORIDE 0.9% 1000 ML 1,000 ML IV ONE (17:06)
--- NOTE | 2020-09-10 17:23 | Progress Note ---
Assessment and Plan Impression: * hypercalcemia * hypokalemia * hypomagnesemia * Hyponatremia * PNA * failure to thrive * Type 2 DM * HTN * weight loss * volume depletion * anterior mediastinal mass Plan: * Continue IVF, currently on NS, Ca level remains at 11 * Continue calcitonin q12, goal calcium level less than 10.5 * follow up SPEP, RAMYA level. PTH appropriately suppressed. Check vitamin D panel as well * replete k and mag prn * strict i/os and daily lytes * Agree with malignancy workup, CT abd/pelvis/chest reviewed. Appreciate pulm, onc input; agree mediastinal biopsy is crucial, ok for contrast to be used if needed from renal perspective Subjective Date of service: 09/10/20 Principal diagnosis: hypercalcemia, weakness Interval history: Patient notes that he continues to feel poorly, no clinical changes. Imaging shows mediastinal mass Objective - Exam Narrative Exam: General: No acute distress, thin and chronically ill appearing, mildly tremulous Head: Atraumatic Eyes: normal appearance ENT: dry mucous membranes Neck: Normal appearance Chest: Clear to auscultation bilaterally CV: Regular rate and rhythm Abdomen: Soft, normal bowel sounds, nontender, nondistended, no rebound or guarding Back: Normal inspection Extremity: Normal inspection, full range of motion Neuro: Alert, Oriented x 3, speech clear, no gross motor sensory deficit Psych: Appropriate behavior Skin: Discoid hyperpigmented areas to bilateral upper extremities - Vital Signs Vital signs: Vital Signs - 12hr 09/10/20 09/10/20 09/10/20 08:18 08:52 10:00 Temperature 97.9 F Pulse Rate 74 76 Respiratory 18 Rate Blood Pressure 131/74 O2 Sat by Pulse 97 100 Oximetry 09/10/20 09/10/20 12:21 15:51 Temperature 97.9 F 98.2 F Pulse Rate 83 81 Respiratory 18 18 Rate Blood Pressure 150/86 173/84 O2 Sat by Pulse 99 99 Oximetry - Lab 09/10/20 05:15 09/10/20 05:15 Most recent lab results Calcium 11.0 mg/dL (8.4-10.2) H 09/10/20 05:15 Magnesium 1.50 mg/dL (1.7-2.3) L 09/09/20 04:59 Medications & Allergies - Medications Allergies/Adverse Reactions: Allergies No Known Allergies Allergy (Unverified 09/07/20 14:22) Home Medications: Home Medications Medication Instructions Recorded Confirmed Last Taken Type Unobtainable 09/10/20 09/10/20 Unknown History Active Medications: Generic Name Dose Route Start Last Admin Trade Name Freq PRN Reason Stop Dose Admin Acetaminophen 650 mg 09/08/20 11:56 Acetaminophen 325 Mg Tab PO Q6H PRN Pain, Mild (1-3) Calcitonin L[place]y 200 unit 09/07/20 22:00 09/10/20 12:03 Calcitonin,[place],Synthetic 400 Unit/2 Ml Inj Mdv 4 unit/kg (200 unit) 200 unit IM Administration Q12HR [facility] Dextrose 50 ml 09/07/20 18:15 09/09/20 22:20 Dextrose 50% In Water (25gm) 50 Ml Syringe IV 50 ml Q30MIN PRN Administration Hypoglycemia Protocol Famotidine 20 mg 09/07/20 22:00 09/10/20 09:54 Famotidine 20 Mg Tab PO 20 mg BID [facility] Administration Heparin Sodium (Porcine) 5,000 unit 09/07/20 22:00 09/10/20 13:56 Heparin 5,000 Unit/1 Ml Vial SUB-Q 5,000 unit Q8HR [facility] Administration Potassium Chloride/Sodium Chloride 20 meq in 1,000 mls @ 125 mls/hr 09/09/20 10:00 Ns/Kcl 20meq IV DIRECT [facility] Pamidronate Disodium 90 mg/ 1,010 mls @ 100 mls/hr 09/10/20 17:06 Sodium Chloride IV 09/11/20 03:11 ONCE ONE Insulin Human Lispro 0 unit 09/07/20 22:00 09/10/20 11:30 Insulin Lispro 100 Unit/Ml SUB-Q Not Given ACHS [facility] Protocol Methylprednisolone Sodium Succinate 80 mg 09/10/20 17:00 Methylprednisolone Sod Succinate 125 Mg/2 Ml Inj IV Q12H [facility] Multivitamins 1 each 09/08/20 10:00 09/10/20 09:54 Multivitamins ,Therapeutic Tab PO 1 each QDAY [facility] Administration Ondansetron HCl 4 mg 09/08/20 11:57 Ondansetron 4 Mg/2 Ml Inj IV Q8H PRN Nausea And Vomiting Oxycodone/Acetaminophen 1 tab 09/08/20 12:03 09/08/20 12:20 Oxycodone /Acetaminophen 5-325mg Tab PO 1 tab Q6H PRN Administration Pain, Moderate (4-6)
[2020-09-10] MEDS: methylPREDNISolone Sod Succinate 125 MG/2 ML INJ IV SCH (17:30)
[2020-09-11] MEDS: HEPARIN 5,000 UNIT/1 ML VIAL SUB-Q SCH ×3 (05:14→22:09)
[2020-09-11] MEDS: methylPREDNISolone Sod Succinate 125 MG/2 ML INJ IV SCH ×2 (05:14→18:27)
[2020-09-11 06:33] LABS: Alanine Aminotransferase 16 units/L (7-56); Albumin 3.1 g/dL (3.9-5); BUN/Creatinine Ratio 26; Blood Urea Nitrogen 23 mg/dL (9-20); Calcium 10.3 mg/dL (8.4-10.2); Hemolysis Index 13
--- NOTE | 2020-09-11 09:21 | Hem/Onc Progress Note ---
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 REC: biopsy mediastinal mass los depending on results of biopsy, he will need transfer for urgent chemo or rad steroid pulse, s/p pamidronate Active Medications Acetaminophen (Acetaminophen 325 Mg Tab) 650 mg PO Q6H PRN PRN Reason: Pain, Mild (1-3) Calcitonin Wallace (Calcitonin,Wallace,Synthetic 400 Unit/2 Ml Inj Mdv) 200 unit 4 unit/kg (200 unit) IM Q12HR [facility] Last Admin: 09/10/20 23:50 Dose: 200 unit Documented by: Dextrose (Dextrose 50% In Water (25gm) 50 Ml Syringe) 50 ml IV Q30MIN PRN; Protocol PRN Reason: Hypoglycemia Last Admin: 09/09/20 22:20 Dose: 50 ml Documented by: Famotidine (Famotidine 20 Mg Tab) 20 mg PO BID [facility] Last Admin: 09/10/20 21:44 Dose: 20 mg Documented by: Heparin Sodium (Porcine) (Heparin 5,000 Unit/1 Ml Vial) 5,000 unit SUB-Q Q8HR [facility] Last Admin: 09/11/20 05:14 Dose: 5,000 unit Documented by: Potassium Chloride/Sodium Chloride (Ns/Kcl 20meq) 20 meq in 1,000 mls @ 125 mls/hr IV DIRECT [facility] Insulin Human Lispro (Insulin Lispro 100 Unit/Ml) 0 unit SUB-Q ACHS [facility]; Protocol Last Admin: 09/10/20 22:20 Dose: Not Given Documented by: Methylprednisolone Sodium Succinate (Methylprednisolone Sod Succinate 125 Mg/2 Ml Inj) 80 mg IV Q12H [facility] Last Admin: 09/11/20 05:14 Dose: 80 mg Documented by: Multivitamins (Multivitamins ,Therapeutic Tab) 1 each PO QDAY [facility] Last Admin: 09/10/20 09:54 Dose: 1 each Documented by: Ondansetron HCl (Ondansetron 4 Mg/2 Ml Inj) 4 mg IV Q8H PRN PRN Reason: Nausea And Vomiting Oxycodone/Acetaminophen (Oxycodone /Acetaminophen 5-325mg Tab) 1 tab PO Q6H PRN PRN Reason: Pain, Moderate (4-6) Last Admin: 09/08/20 12:20 Dose: 1 tab Documented by: Laboratory Last Values WBC 8.9 K/mm3 (4.5-11.0) 09/10/20 05:15 Hgb 10.1 gm/dl (11.8-15.2) L 09/10/20 05:15 Hct 29.4 % (35.5-45.6) L 09/10/20 05:15 Plt Count 327 K/mm3 (140-440) 09/10/20 05:15 Sodium 128 mmol/L (137-145) L 09/11/20 05:18 Creatinine 0.9 mg/dL (0.8-1.3) 09/11/20 05:18 Calcium 10.3 mg/dL (8.4-10.2) H 09/11/20 05:18 Plasma/Serum Alcohol < 0.01 % (0-0.07) 09/07/20 15:28 Coronavirus (PCR) Negative (Negative) 09/08/20 10:06 Objective - Constitutional Vitals: Last Vital Signs Temp 98.4 F 09/11/20 03:47 Pulse 91 H 09/11/20 03:47 Resp 16 09/11/20 03:47 BP 147/81 09/11/20 03:47 Pulse Ox 99 09/11/20 03:47 - Labs Lab Results: Laboratory Results - last 24 hr 09/10/20 09/10/20 09/10/20 11:25 16:35 20:52 Sodium Potassium Chloride Carbon Dioxide Anion Gap BUN Creatinine Estimated GFR BUN/Creatinine Ratio Glucose POC Glucose 88 73 95 Calcium Total Bilirubin AST ALT Alkaline Phosphatase Total Protein Albumin Albumin/Globulin Ratio 09/11/20 05:18 Sodium 128 L Potassium 3.9 Chloride 92.7 L Carbon Dioxide 20 L Anion Gap 19 BUN 23 H Creatinine 0.9 Estimated GFR > 60 BUN/Creatinine Ratio 26 Glucose 124 H POC Glucose Calcium 10.3 H Total Bilirubin 0.30 AST 37 ALT 16 Alkaline Phosphatase 126 Total Protein 6.8 Albumin 3.1 L Albumin/Globulin Ratio 0.8 Medications & Allergies - Medications Allergies/Adverse Reactions: Allergies No Known Allergies Allergy (Unverified 09/07/20 14:22) Home Medications: Home Medications Medication Instructions Recorded Confirmed Last Taken Type Unobtainable 09/10/20 09/10/20 Unknown History Active Medications: Generic Name Dose Route Start Last Admin Trade Name Eliel PRN Reason Stop Dose Admin Acetaminophen 650 mg 09/08/20 11:56 Acetaminophen 325 Mg Tab PO Q6H PRN Pain, Mild (1-3) Calcitonin Wallace 200 unit 09/07/20 22:00 09/10/20 23:50 Calcitonin,Wallace,Synthetic 400 Unit/2 Ml Inj Mdv 4 unit/kg (200 unit) 200 unit IM Administration Q12HR [facility] Dextrose 50 ml 09/07/20 18:15 09/09/20 22:20 Dextrose 50% In Water (25gm) 50 Ml Syringe IV 50 ml Q30MIN PRN Administration Hypoglycemia Protocol Famotidine 20 mg 09/07/20 22:00 09/10/20 21:44 Famotidine 20 Mg Tab PO 20 mg BID [facility] Administration Heparin Sodium (Porcine) 5,000 unit 09/07/20 22:00 09/11/20 05:14 Heparin 5,000 Unit/1 Ml Vial SUB-Q 5,000 unit Q8HR [facility] Administration Potassium Chloride/Sodium Chloride 20 meq in 1,000 mls @ 125 mls/hr 09/09/20 10:00 Ns/Kcl 20meq IV DIRECT [facility] Insulin Human Lispro 0 unit 09/07/20 22:00 09/10/20 22:20 Insulin Lispro 100 Unit/Ml SUB-Q Not Given ACHS [facility] Protocol Methylprednisolone Sodium Succinate 80 mg 09/10/20 17:00 09/11/20 05:14 Methylprednisolone Sod Succinate 125 Mg/2 Ml Inj IV 80 mg Q12H [facility] Administration Multivitamins 1 each 09/08/20 10:00 09/10/20 09:54 Multivitamins ,Therapeutic Tab PO 1 each QDAY [facility] Administration Ondansetron HCl 4 mg 09/08/20 11:57 Ondansetron 4 Mg/2 Ml Inj IV Q8H PRN Nausea And Vomiting Oxycodone/Acetaminophen 1 tab 09/08/20 12:03 09/08/20 12:20 Oxycodone /Acetaminophen 5-325mg Tab PO 1 tab Q6H PRN Administration Pain, Moderate (4-6)
[2020-09-11] MEDS: FAMOTIDINE 20 MG TAB PO SCH ×2 (09:37→22:10)
[2020-09-11] MEDS: MULTIVITAMINS ,THERAPEUTIC TAB PO SCH (09:37)
--- NOTE | 2020-09-11 10:14 | Progress Note ---
Assessment and Plan Assessment and plan: Pneumonia Pneumonia pathway. Rocephin 1 g IV daily. Zithromax 500 mg IV daily. DuoNeb by nebulizer every 4 hours as needed. Chronic hypertension Home BP meds Toxic metabolic encephalopathy. 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 Continue calcitonin every 12 hours with a goal of less than 10.5. Check SPEP and RAMYA level. PTH decreased. Diabetes 1800 kcal ADA diet, sliding scale Accu-Chek before meals and at bedtime moderate dose covering. Hypokalemia Replete as needed. Hypomagnesemia Replete as needed. Left hip pain DVT prophylaxis Patient is on heparin 5000 units subcu every 8 hours for DVT prophylaxis. 09/08/2020 -Patient is on IV antibiotics for pneumonia -Electrolyte replacement protocol, BMP from this morning is pending -PT OT evaluation -CT head is negative for acute intracranial findings -Confusion is likely due to metabolic encephalopathy -Blood sugar is within normal limits -Nephrology is consulted for the management of hypercalcemia -ID is consulted for the management of pneumonia, suspected Covid and Covid test is pending 09/09/2020. Continue calcitonin and follow-up calcium levels. Nephrology following. Follow-up SPEP and RAMYA levels. Continue antibiotics for pneumonia. Check CT of the chest, abdomen and pelvis given hypercalcemia. Check PTH related protein. Consider consultation with oncology. 09/10/2020. Chest CT revealed Large infiltrating mass in the anterior mediastinum with bony destruction of the manubrium, sternum. Oncology consultation pending. Patient with hypercalcemia of malignancy treated with calcitonin per nephrology. Antibiotics discontinued by infectious disease. Pulmonary consultation 09/11/2020. I discussed the case with CT surgery (Dr. Bush) who will evaluate the patient for possible mediastinoscopy. Pulmonary, nephrology and oncology following. Continue calcitonin per nephrology recommendations. History Interval history: No new issues overnight. Hospitalist Physical - Constitutional Vitals: Temp Pulse Resp BP Pulse Ox 98.4 F 91 H 16 147/81 99 09/11/20 03:47 09/11/20 03:47 09/11/20 03:47 09/11/20 03:47 09/11/20 03:47 General appearance: Present: no acute distress, well-nourished - EENT Eyes: Present: PERRL, EOM intact ENT: hearing intact, clear oral mucosa, dentition normal - Neck Neck: Present: supple, normal ROM - Respiratory Respiratory effort: normal Respiratory: bilateral: CTA - Cardiovascular Rhythm: regular Heart Sounds: Present: S1 & S2. Absent: gallop, rub - Extremities Extremities: no ischemia, No edema, Full ROM - Abdominal General gastrointestinal: soft, non-tender, non-distended, normal bowel sounds - Integumentary Integumentary: Present: clear, warm, dry - Neurologic Neurologic: CNII-XII intact, moves all extremities HEART Score - HEART Score Troponin: Troponin T 0.014 ng/mL (0.00-0.029) 09/07/20 15:28 Results - Labs CBC & Chem 7: 09/10/20 05:15 09/11/20 05:18 Labs: Laboratory Last Values WBC 8.9 K/mm3 (4.5-11.0) 09/10/20 05:15 RBC 3.43 M/mm3 (3.65-5.03) L 09/10/20 05:15 Hgb 10.1 gm/dl (11.8-15.2) L 09/10/20 05:15 Hct 29.4 % (35.5-45.6) L 09/10/20 05:15 MCV 86 fl (84-94) 09/10/20 05:15 MCH 29 pg (28-32) 09/10/20 05:15 MCHC 34 % (32-34) 09/10/20 05:15 RDW 14.0 % (13.2-15.2) 09/10/20 05:15 Plt Count 327 K/mm3 (140-440) 09/10/20 05:15 Lymph % (Auto) 14.3 % (13.4-35.0) 09/10/20 05:15 Gem % (Auto) 6.2 % (0.0-7.3) 09/10/20 05:15 Eos % (Auto) 1.0 % (0.0-4.3) 09/10/20 05:15 Baso % (Auto) 0.2 % (0.0-1.8) 09/10/20 05:15 Lymph # (Auto) 1.3 K/mm3 (1.2-5.4) 09/10/20 05:15 Gem # (Auto) 0.6 K/mm3 (0.0-0.8) 09/10/20 05:15 Eos # (Auto) 0.1 K/mm3 (0.0-0.4) 09/10/20 05:15 Baso # (Auto) 0.0 K/mm3 (0.0-0.1) 09/10/20 05:15 Seg Neutrophils % 78.3 % (40.0-70.0) H 09/10/20 05:15 Seg Neutrophils # 7.0 K/mm3 (1.8-7.7) 09/10/20 05:15 D-Dimer 472.35 ng/mlDDU (0-234) H 09/07/20 17:01 Sodium 128 mmol/L (137-145) L 09/11/20 05:18 Potassium 3.9 mmol/L (3.6-5.0) 09/11/20 05:18 Chloride 92.7 mmol/L (98-107) L 09/11/20 05:18 Carbon Dioxide 20 mmol/L (22-30) L 09/11/20 05:18 Anion Gap 19 mmol/L 09/11/20 05:18 BUN 23 mg/dL (9-20) H 09/11/20 05:18 Creatinine 0.9 mg/dL (0.8-1.3) 09/11/20 05:18 Estimated GFR > 60 ml/min 09/11/20 05:18 BUN/Creatinine Ratio 26 % 09/11/20 05:18 Glucose 124 mg/dL (75-100) H 09/11/20 05:18 POC Glucose 95 mg/dL (70-105) 09/10/20 20:52 Calcium 10.3 mg/dL (8.4-10.2) H 09/11/20 05:18 Magnesium 1.50 mg/dL (1.7-2.3) L 09/09/20 04:59 Ferritin 389.0 ng/mL (30.0-300.0) H 09/07/20 17:01 Total Bilirubin 0.30 mg/dL (0.1-1.2) 09/11/20 05:18 AST 37 units/L (5-40) 09/11/20 05:18 ALT 16 units/L (7-56) 09/11/20 05:18 Alkaline Phosphatase 126 units/L (35-129) 09/11/20 05:18 Lactate Dehydrogenase 335 units/L (91-180) H 09/07/20 17:01 Total Creatine Kinase 146 units/L (55-170) 09/07/20 15:28 Troponin T 0.014 ng/mL (0.00-0.029) 09/07/20 15:28 C-Reactive Protein 1.60 mg/dL (0.00-1.30) H 09/07/20 17:01 Total Protein 6.8 g/dL (6.3-8.2) 09/11/20 05:18 Albumin 3.1 g/dL (3.9-5) L 09/11/20 05:18 Albumin/Globulin Ratio 0.8 % 09/11/20 05:18 Procalcitonin < 0.05 ng/mL (<0.15) 09/07/20 17:01 TSH 2.730 mlU/mL (0.270-4.200) 09/07/20 15:28 Free T4 1.34 ng/dL (0.76-1.46) 09/07/20 15:28 PTH Intact 5.89 pg/mL (15-65) L 09/08/20 09:54 Urine Color Straw (Yellow) 09/07/20 21:05 Urine Turbidity Clear (Clear) 09/07/20 21:05 Urine pH 7.0 (5.0-7.0) 09/07/20 21:05 Ur Specific [place] 1.005 (1.003-1.030) 09/07/20 21:05 Urine Protein <15 mg/dl mg/dL (Negative) 09/07/20 21:05 Urine Glucose (UA) Neg mg/dL (Negative) 09/07/20 21:05 Urine Ketones Neg mg/dL (Negative) 09/07/20 21:05 Urine Blood Neg (Negative) 09/07/20 21:05 Urine Nitrite Neg (Negative) 09/07/20 21:05 Urine Bilirubin Neg (Negative) 09/07/20 21:05 Urine Urobilinogen < 2.0 mg/dL (<2.0) 09/07/20 21:05 Ur Leukocyte Esterase Neg (Negative) 09/07/20 21:05 Urine WBC (Auto) 1.0 /HPF (0.0-6.0) 09/07/20 21:05 Urine RBC (Auto) 1.0 /HPF (0.0-6.0) 09/07/20 21:05 Urine Bacteria (Auto) 1+ /HPF (Negative) 09/07/20 21:05 Urine Opiates Screen Negative 09/07/20 21:05 Urine Methadone Screen Negative 09/07/20 21:05 Ur Barbiturates Screen Negative 09/07/20 21:05 Ur Phencyclidine Scrn Negative 09/07/20 21:05 Ur Amphetamines Screen Negative 09/07/20 21:05 U Benzodiazepines Scrn Negative 09/07/20 21:05 Urine Cocaine Screen Negative 09/07/20 21:05 U Marijuana (THC) Screen Negative 09/07/20 21:05 Drugs of Abuse Note Disclamer 09/07/20 21:05 Plasma/Serum Alcohol < 0.01 % (0-0.07) 09/07/20 15:28 Coronavirus (PCR) Negative (Negative) 09/08/20 10:06 Microbiology: Microbiology 09/07/20 17:01 Peripheral/Venous Blood Culture - Preliminary NO GROWTH AFTER 72 HOURS 09/07/20 17:01 Peripheral/Venous Blood Culture - Preliminary NO GROWTH AFTER 72 HOURS Monique/IV: Voiding Method Condom Catheter Active Medications - Current Medications Current Medications: Generic Name Dose Route Start Last Admin Trade Name Freq PRN Reason Stop Dose Admin Acetaminophen 650 mg 09/08/20 11:56 Acetaminophen 325 Mg Tab PO Q6H PRN Pain, Mild (1-3) Calcitonin [place] 200 unit 09/07/20 22:00 09/10/20 23:50 Calcitonin,[place],Synthetic 400 Unit/2 Ml Inj Mdv 4 unit/kg (200 unit) 200 unit IM Administration Q12HR CLARICE Dextrose 50 ml 09/07/20 18:15 09/09/20 22:20 Dextrose 50% In Water (25gm) 50 Ml Syringe IV 50 ml Q30MIN PRN Administration Hypoglycemia Protocol Famotidine 20 mg 09/07/20 22:00 09/11/20 09:37 Famotidine 20 Mg Tab PO 20 mg BID CLARICE Administration Heparin Sodium (Porcine) 5,000 unit 09/07/20 22:00 09/11/20 05:14 Heparin 5,000 Unit/1 Ml Vial SUB-Q 5,000 unit Q8HR CALRICE Administration Potassium Chloride/Sodium Chloride 20 meq in 1,000 mls @ 125 mls/hr 09/09/20 10:00 Ns/Kcl 20meq IV DIRECT CLARICE Insulin Human Lispro 0 unit 09/07/20 22:00 09/10/20 22:20 Insulin Lispro 100 Unit/Ml SUB-Q Not Given ACHS [facility] Protocol Methylprednisolone Sodium Succinate 80 mg 09/10/20 17:00 09/11/20 05:14 Methylprednisolone Sod Succinate 125 Mg/2 Ml Inj IV 80 mg Q12H CLARICE Administration Multivitamins 1 each 09/08/20 10:00 09/11/20 09:37 Multivitamins ,Therapeutic Tab PO 1 each QDAY CLARICE Administration Ondansetron HCl 4 mg 09/08/20 11:57 Ondansetron 4 Mg/2 Ml Inj IV Q8H PRN Nausea And Vomiting Oxycodone/Acetaminophen 1 tab 09/08/20 12:03 09/08/20 12:20 Oxycodone /Acetaminophen 5-325mg Tab PO 1 tab Q6H PRN Administration Pain, Moderate (4-6) Nutrition/Malnutrition Assess - Dietary Evaluation Nutrition/Malnutrition Findings: Nutrition Notes Start: 09/08/20 08:59 Freq: Status: Active Protocol: Document 09/10/20 12:12 CW (Rec: 09/10/20 12:29 CW [email or web address]) Nutrition Notes Initial or Follow up Assessment Current Diagnosis Diabetes,Hypertension Other Pertinent Diagnosis PNA, Confusion Current Diet Mechanical soft Labs/Tests Na 131 K 3.5 BG 65 Pertinent Medications D50w 50 ml Height 5 ft 6 in Weight 57.9 kg [place] Body Weight (kg) 64.54 BMI 20.6 Weight change and time frame weight change noted Weight Status Underweight Subjective/Other Information F/U for diet education,intakes , and assessment. Pt has had variable intakes. Upon discussion pt has some confusion. pt was unable to recall recent meals intakes or if he was drinking the ONS. Not a candidate for diet education at this time. Will increase ONS to BID for variable intake and requests for fluids. Percent of energy/protein needs met: 28%/24% Burn Absent Trauma Absent GI Symptoms None Difficulty In Chewing Food Allergy No Cultural/Ethnic/[employer] [place] foods Current % PO Poor (25-49%) Minimum of two criteria No physical signs of malnutrition #2 Nutrition Diagnosis Inadequate oral intake Etiology loss of appetite As Evidenced by Signs and Symptoms Pt has a PO intake of 25% of meals #1 Nutrition Diagnosis Predicted suboptimal energy intake As Evidenced by Signs and Symptoms Obtained PO intake hx Diagnosis Progress(for reassessment Resolved documentation) Is patient on ventilator? No Is Patient Ambulatory and/or Out of Bed No [facility] 1573.644 Kcal/Kg value to use for calculation 32 Approximate Energy Requirements Using 1853 kcal/Kg Calculation Used for Recommendations Kcal/kg Additional Notes Protein needs 54-65g (1-1.2g/ kg) Fluid needs are 1ml/kcal Nutrition Intervention Change Diet Order: Continue Mechanical Soft Diet Add Supplement/Snack (indicate name/kcal Glucerna BID /protein ) Provides kCal: 440 Provides Protein (gm) 20 Goal #1 Meet at least 80% of kcal and protein needs Anticipated Discharge Needs: Mechanical soft consistent carbohydrates Follow-Up By: 09/12/20 Additional Comments F/U for PO intakes and ONS tolerance
[2020-09-11] MEDS: INSULIN LISPRO 100 UNIT/ML SUB-Q SCH ×3 (11:02→19:53)
[2020-09-11] MEDS: oxyCODONE /ACETAMINOPHEN 5-325MG TAB PO PRN (12:55)
--- NOTE | 2020-09-11 15:20 | Progress Note ---
Assessment and Plan Impression: * hypercalcemia * hypokalemia * hypomagnesemia * Hyponatremia * PNA * failure to thrive * Type 2 DM * HTN * weight loss * volume depletion * anterior mediastinal mass Plan: * Will stop IVF, normal saline as calcium improving * Sodium now at 128, may have SIADH in setting of malignancy, will stop IVF as noted, encourage balanced po/solute intake * Hold calcitonin q12, as calcium level less than 10.5 * Agree with pamidronate, steroids per oncology * follow up SPEP, RAMYA level, vitamin D panel. PTH appropriately suppressed. * replete k and mag prn * strict i/os and daily lytes * Agree with malignancy workup, CT abd/pelvis/chest reviewed. Appreciate pulm, onc input; agree mediastinal biopsy is crucial, ok for contrast to be used if needed from renal perspective Subjective Date of service: 09/11/20 Principal diagnosis: hypercalcemia, weakness Interval history: Patient notes that he continues to feel poorly, no clinical changes. Eating breakfast this AM, in good spirits Objective - Exam Narrative Exam: General: No acute distress, thin and chronically ill appearing Head: Atraumatic Eyes: normal appearance ENT: dry mucous membranes Neck: Normal appearance Chest: Clear to auscultation bilaterally CV: Regular rate and rhythm Abdomen: Soft, normal bowel sounds, nontender, nondistended, no rebound or guarding Back: Normal inspection Extremity: Normal inspection, full range of motion Neuro: Alert, Oriented x 3, speech clear, no gross motor sensory deficit Psych: Appropriate behavior Skin: Discoid hyperpigmented areas to bilateral upper extremities - Vital Signs Vital signs: Vital Signs - 12hr 09/11/20 09/11/20 09/11/20 03:47 07:52 11:22 Temperature 98.4 F 98.2 F 98.1 F Pulse Rate 91 H 90 89 Respiratory 16 18 18 Rate Blood Pressure 147/81 153/84 162/95 O2 Sat by Pulse 99 97 98 Oximetry - Lab 09/10/20 05:15 09/11/20 05:18 Most recent lab results Calcium 10.3 mg/dL (8.4-10.2) H 09/11/20 05:18 Magnesium 1.50 mg/dL (1.7-2.3) L 09/09/20 04:59 Medications & Allergies - Medications Allergies/Adverse Reactions: Allergies No Known Allergies Allergy (Unverified 09/07/20 14:22) Home Medications: Home Medications Medication Instructions Recorded Confirmed Last Taken Type Unobtainable 09/10/20 09/10/20 Unknown History Active Medications: Generic Name Dose Route Start Last Admin Trade Name Freq PRN Reason Stop Dose Admin Acetaminophen 650 mg 09/08/20 11:56 Acetaminophen 325 Mg Tab PO Q6H PRN Pain, Mild (1-3) Calcitonin [place] 200 unit 09/07/20 22:00 09/10/20 23:50 Calcitonin,[place],Synthetic 400 Unit/2 Ml Inj Mdv 4 unit/kg (200 unit) 200 unit IM Administration Q12HR CLARICE Dextrose 50 ml 09/07/20 18:15 09/09/20 22:20 Dextrose 50% In Water (25gm) 50 Ml Syringe IV 50 ml Q30MIN PRN Administration Hypoglycemia Protocol Famotidine 20 mg 09/07/20 22:00 09/11/20 09:37 Famotidine 20 Mg Tab PO 20 mg BID CLARICE Administration Heparin Sodium (Porcine) 5,000 unit 09/07/20 22:00 09/11/20 05:14 Heparin 5,000 Unit/1 Ml Vial SUB-Q 5,000 unit Q8HR CLARICE Administration Potassium Chloride/Sodium Chloride 20 meq in 1,000 mls @ 125 mls/hr 09/09/20 10:00 Ns/Kcl 20meq IV DIRECT CLARICE Insulin Human Lispro 0 unit 09/07/20 22:00 09/11/20 11:02 Insulin Lispro 100 Unit/Ml SUB-Q Not Given ACHS [facility] Protocol Methylprednisolone Sodium Succinate 80 mg 09/10/20 17:00 09/11/20 05:14 Methylprednisolone Sod Succinate 125 Mg/2 Ml Inj IV 80 mg Q12H CLARICE Administration Multivitamins 1 each 09/08/20 10:00 09/11/20 09:37 Multivitamins ,Therapeutic Tab PO 1 each QDAY CLARICE Administration Ondansetron HCl 4 mg 09/08/20 11:57 Ondansetron 4 Mg/2 Ml Inj IV Q8H PRN Nausea And Vomiting Oxycodone/Acetaminophen 1 tab 09/08/20 12:03 09/11/20 12:55 Oxycodone /Acetaminophen 5-325mg Tab PO 1 tab Q6H PRN Administration Pain, Moderate (4-6)
[2020-09-11 22:04] LABS: Albumin 2.8 g/dL (3.8-4.8); Gamma Globulin 1.3 g/dL (0.8-1.7)
[2020-09-12] MEDS: INSULIN LISPRO 100 UNIT/ML SUB-Q SCH ×5 (01:03→22:00)
[2020-09-12 05:33] LABS: Basophils % (Auto) 0.1 % (0.0-1.8); Hematocrit 27.1 % (35.5-45.6); Hemoglobin 9.2 gm/dl (11.8-15.2); Lymphocytes % (Auto) 10.6 % (13.4-35.0); Mean Corpuscular HGB Conc 34 % (32-34); Mean Corpuscular Volume 86 fl (84-94); Monocytes # (Auto) 0.4 K/mm3 (0.0-0.8); Monocytes % (Auto) 4.7 % (0.0-7.3); Platelet Count 308 K/mm3 (140-440); Red Blood Count 3.16 M/mm3 (3.65-5.03); Red Cell Distribution Width 14.3 % (13.2-15.2)
[2020-09-12 05:47] LABS: Alanine Aminotransferase 15 units/L (7-56); Albumin 3.3 g/dL (3.9-5); BUN/Creatinine Ratio 25; Blood Urea Nitrogen 25 mg/dL (9-20); Calcium 9.9 mg/dL (8.4-10.2); Hemolysis Index 5
[2020-09-12] MEDS: methylPREDNISolone Sod Succinate 125 MG/2 ML INJ IV SCH ×2 (05:58→18:25)
[2020-09-12] MEDS: HEPARIN 5,000 UNIT/1 ML VIAL SUB-Q SCH ×3 (05:58→22:00)
[2020-09-12] MEDS: FAMOTIDINE 20 MG TAB PO SCH ×2 (10:02→22:00)
[2020-09-12] MEDS: MULTIVITAMINS ,THERAPEUTIC TAB PO SCH (10:02)
--- NOTE | 2020-09-12 10:17 | Progress Note ---
Assessment and Plan Assessment and plan: Pneumonia Pneumonia pathway. Rocephin 1 g IV daily. Zithromax 500 mg IV daily. DuoNeb by nebulizer every 4 hours as needed. Chronic hypertension Home BP meds Toxic metabolic encephalopathy. 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 Continue calcitonin every 12 hours with a goal of less than 10.5. Check SPEP and RAMYA level. PTH decreased. Diabetes 1800 kcal ADA diet, sliding scale Accu-Chek before meals and at bedtime moderate dose covering. Hypokalemia Replete as needed. Hypomagnesemia Replete as needed. Left hip pain DVT prophylaxis Patient is on heparin 5000 units subcu every 8 hours for DVT prophylaxis. 09/08/2020 -Patient is on IV antibiotics for pneumonia -Electrolyte replacement protocol, BMP from this morning is pending -PT OT evaluation -CT head is negative for acute intracranial findings -Confusion is likely due to metabolic encephalopathy -Blood sugar is within normal limits -Nephrology is consulted for the management of hypercalcemia -ID is consulted for the management of pneumonia, suspected Covid and Covid test is pending 09/09/2020. Continue calcitonin and follow-up calcium levels. Nephrology following. Follow-up SPEP and RAMYA levels. Continue antibiotics for pneumonia. Check CT of the chest, abdomen and pelvis given hypercalcemia. Check PTH related protein. Consider consultation with oncology. 09/10/2020. Chest CT revealed Large infiltrating mass in the anterior mediastinum with bony destruction of the manubrium, sternum. Oncology consultation pending. Patient with hypercalcemia of malignancy treated with calcitonin per nephrology. Antibiotics discontinued by infectious disease. Pulmonary consultation 09/11/2020. I discussed the case with CT surgery (Dr. Bush) who will evaluate the patient for possible mediastinoscopy. Pulmonary, nephrology and oncology following. Continue calcitonin per nephrology recommendations. 09/12/2020. Patient for tissue biopsy per radiology. I discussed the case again with Dr. Bush who believes that patient is not a surgical candidate given the extensive disease/malignancy. I discussed the case with the son (ESTHER Granger number is [phone]) likely poor/grim diagnosis but await pathology of mass. Considerations for palliative/hospice care. History Interval history: No new issues overnight. Hospitalist Physical - Constitutional Vitals: Temp Pulse Resp BP Pulse Ox 97.8 F 85 18 160/92 98 09/12/20 07:44 09/12/20 07:44 09/12/20 07:44 09/12/20 07:44 09/12/20 07:44 General appearance: Present: no acute distress, well-nourished - EENT Eyes: Present: PERRL, EOM intact ENT: hearing intact, clear oral mucosa, dentition normal - Neck Neck: Present: supple, normal ROM - Respiratory Respiratory effort: normal Respiratory: bilateral: CTA - Cardiovascular Rhythm: regular Heart Sounds: Present: S1 & S2. Absent: gallop, rub - Extremities Extremities: no ischemia, No edema, Full ROM - Abdominal General gastrointestinal: soft, non-tender, non-distended, normal bowel sounds - Integumentary Integumentary: Present: clear, warm, dry - Neurologic Neurologic: CNII-XII intact, moves all extremities HEART Score - HEART Score Troponin: Troponin T 0.014 ng/mL (0.00-0.029) 09/07/20 15:28 Results - Labs CBC & Chem 7: 09/12/20 04:43 09/12/20 04:43 Labs: Laboratory Last Values WBC 9.2 K/mm3 (4.5-11.0) 09/12/20 04:43 RBC 3.16 M/mm3 (3.65-5.03) L 09/12/20 04:43 Hgb 9.2 gm/dl (11.8-15.2) L 09/12/20 04:43 Hct 27.1 % (35.5-45.6) L 09/12/20 04:43 MCV 86 fl (84-94) 09/12/20 04:43 MCH 29 pg (28-32) 09/12/20 04:43 MCHC 34 % (32-34) 09/12/20 04:43 RDW 14.3 % (13.2-15.2) 09/12/20 04:43 Plt Count 308 K/mm3 (140-440) 09/12/20 04:43 Lymph % (Auto) 10.6 % (13.4-35.0) L 09/12/20 04:43 [place] % (Auto) 4.7 % (0.0-7.3) 09/12/20 04:43 Eos % (Auto) 0.0 % (0.0-4.3) 09/12/20 04:43 Baso % (Auto) 0.1 % (0.0-1.8) 09/12/20 04:43 Lymph # (Auto) 1.0 K/mm3 (1.2-5.4) L 09/12/20 04:43 [place] # (Auto) 0.4 K/mm3 (0.0-0.8) 09/12/20 04:43 Eos # (Auto) 0.0 K/mm3 (0.0-0.4) 09/12/20 04:43 Baso # (Auto) 0.0 K/mm3 (0.0-0.1) 09/12/20 04:43 Seg Neutrophils % 84.6 % (40.0-70.0) H 09/12/20 04:43 Seg Neutrophils # 7.8 K/mm3 (1.8-7.7) H 09/12/20 04:43 D-Dimer 472.35 ng/mlDDU (0-234) H 09/07/20 17:01 Sodium 130 mmol/L (137-145) L 09/12/20 04:43 Potassium 4.6 mmol/L (3.6-5.0) 09/12/20 04:43 Chloride 95.5 mmol/L (98-107) L 09/12/20 04:43 Carbon Dioxide 26 mmol/L (22-30) 09/12/20 04:43 Anion Gap 13 mmol/L 09/12/20 04:43 BUN 25 mg/dL (9-20) H 09/12/20 04:43 Creatinine 1.0 mg/dL (0.8-1.3) 09/12/20 04:43 Estimated GFR > 60 ml/min 09/12/20 04:43 BUN/Creatinine Ratio 25 % 09/12/20 04:43 Glucose 164 mg/dL (75-100) H 09/12/20 04:43 POC Glucose 217 mg/dL (70-105) H 09/12/20 00:01 Calcium 9.9 mg/dL (8.4-10.2) 09/12/20 04:43 Magnesium 1.50 mg/dL (1.7-2.3) L 09/09/20 04:59 Ferritin 389.0 ng/mL (30.0-300.0) H 09/07/20 17:01 Total Bilirubin < 0.20 mg/dL (0.1-1.2) 09/12/20 04:43 AST 26 units/L (5-40) 09/12/20 04:43 ALT 15 units/L (7-56) 09/12/20 04:43 Alkaline Phosphatase 123 units/L (35-129) 09/12/20 04:43 Lactate Dehydrogenase 335 units/L (91-180) H 09/07/20 17:01 Total Creatine Kinase 146 units/L (55-170) 09/07/20 15:28 Troponin T 0.014 ng/mL (0.00-0.029) 09/07/20 15:28 C-Reactive Protein 1.60 mg/dL (0.00-1.30) H 09/07/20 17:01 Serum Total Protein 6.4 g/dL (6.1-8.1) 09/08/20 09:54 Total Protein 6.9 g/dL (6.3-8.2) 09/12/20 04:43 Albumin 3.3 g/dL (3.9-5) L 09/12/20 04:43 Albumin/Globulin Ratio 0.9 % 09/12/20 04:43 Imdbb-3-Pnmtmhbxd 0.5 g/dL (0.2-0.3) H 09/08/20 09:54 Degdj-6-Canymaxxt 0.9 g/dL (0.5-0.9) 09/08/20 09:54 Beta Globulins 0.5 g/dL (0.2-0.5) 09/08/20 09:54 Gamma Globulins 1.3 g/dL (0.8-1.7) 09/08/20 09:54 Abnorm Protein Band 1 see below 09/08/20 09:54 PEP Interpretation see below H 09/08/20 09:54 Angiotensin Convert Enz 22 U/L (9-67) 09/08/20 09:54 Procalcitonin < 0.05 ng/mL (<0.15) 09/07/20 17:01 TSH 2.730 mlU/mL (0.270-4.200) 09/07/20 15:28 Free T4 1.34 ng/dL (0.76-1.46) 09/07/20 15:28 PTH Intact 5.89 pg/mL (15-65) L 09/08/20 09:54 Urine Color Straw (Yellow) 09/07/20 21:05 Urine Turbidity Clear (Clear) 09/07/20 21:05 Urine pH 7.0 (5.0-7.0) 09/07/20 21:05 Ur Specific [place] 1.005 (1.003-1.030) 09/07/20 21:05 Urine Protein <15 mg/dl mg/dL (Negative) 09/07/20 21:05 Urine Glucose (UA) Neg mg/dL (Negative) 09/07/20 21:05 Urine Ketones Neg mg/dL (Negative) 09/07/20 21:05 Urine Blood Neg (Negative) 09/07/20 21:05 Urine Nitrite Neg (Negative) 09/07/20 21:05 Urine Bilirubin Neg (Negative) 09/07/20 21:05 Urine Urobilinogen < 2.0 mg/dL (<2.0) 09/07/20 21:05 Ur Leukocyte Esterase Neg (Negative) 09/07/20 21:05 Urine WBC (Auto) 1.0 /HPF (0.0-6.0) 09/07/20 21:05 Urine RBC (Auto) 1.0 /HPF (0.0-6.0) 09/07/20 21:05 Urine Bacteria (Auto) 1+ /HPF (Negative) 09/07/20 21:05 Urine Opiates Screen Negative 09/07/20 21:05 Urine Methadone Screen Negative 09/07/20 21:05 Ur Barbiturates Screen Negative 09/07/20 21:05 Ur Phencyclidine Scrn Negative 09/07/20 21:05 Ur Amphetamines Screen Negative 09/07/20 21:05 U Benzodiazepines Scrn Negative 09/07/20 21:05 Urine Cocaine Screen Negative 09/07/20 21:05 U Marijuana (THC) Screen Negative 09/07/20 21:05 Drugs of Abuse Note Disclamer 09/07/20 21:05 Plasma/Serum Alcohol < 0.01 % (0-0.07) 09/07/20 15:28 Coronavirus (PCR) Negative (Negative) 09/08/20 10:06 Microbiology: Microbiology 09/07/20 17:01 Peripheral/Venous Blood Culture - Preliminary NO GROWTH AFTER 4 DAYS 09/07/20 17:01 Peripheral/Venous Blood Culture - Preliminary NO GROWTH AFTER 4 DAYS Monique/IV: Voiding Method Bedside Commode Active Medications - Current Medications Current Medications: Generic Name Dose Route Start Last Admin Trade Name Freq PRN Reason Stop Dose Admin Acetaminophen 650 mg 09/08/20 11:56 Acetaminophen 325 Mg Tab PO Q6H PRN Pain, Mild (1-3) Dextrose 50 ml 09/07/20 18:15 09/09/20 22:20 Dextrose 50% In Water (25gm) 50 Ml Syringe IV 50 ml Q30MIN PRN Administration Hypoglycemia Protocol Famotidine 20 mg 09/07/20 22:00 09/12/20 10:02 Famotidine 20 Mg Tab PO 20 mg BID CLARICE Administration Heparin Sodium (Porcine) 5,000 unit 09/07/20 22:00 09/12/20 05:58 Heparin 5,000 Unit/1 Ml Vial SUB-Q 5,000 unit Q8HR CLARICE Administration Insulin Human Lispro 0 unit 09/07/20 22:00 09/12/20 01:03 Insulin Lispro 100 Unit/Ml SUB-Q 3 unit ACHS CLARICE Administration Protocol Methylprednisolone Sodium Succinate 80 mg 09/10/20 17:00 09/12/20 05:58 Methylprednisolone Sod Succinate 125 Mg/2 Ml Inj IV 80 mg Q12H CLARIEC Administration Multivitamins 1 each 09/08/20 10:00 09/12/20 10:02 Multivitamins ,Therapeutic Tab PO 1 each QDAY CLARICE Administration Ondansetron HCl 4 mg 09/08/20 11:57 Ondansetron 4 Mg/2 Ml Inj IV Q8H PRN Nausea And Vomiting Oxycodone/Acetaminophen 1 tab 09/08/20 12:03 09/11/20 12:55 Oxycodone /Acetaminophen 5-325mg Tab PO 1 tab Q6H PRN Administration Pain, Moderate (4-6) Nutrition/Malnutrition Assess - Dietary Evaluation Nutrition/Malnutrition Findings: Nutrition Notes Start: 09/08/20 08:59 Freq: Status: Active Protocol: Document 09/10/20 12:12 CW (Rec: 09/10/20 12:29 CW [id number]) Nutrition Notes Initial or Follow up Assessment Current Diagnosis Diabetes,Hypertension Other Pertinent Diagnosis PNA, Confusion Current Diet Mechanical soft Labs/Tests Na 131 K 3.5 BG 65 Pertinent Medications D50w 50 ml Height 5 ft 6 in Weight 57.9 kg [place] Body Weight (kg) 64.54 BMI 20.6 Weight change and time frame weight change noted Weight Status Underweight Subjective/Other Information F/U for diet education,intakes , and assessment. Pt has had variable intakes. Upon discussion pt has some confusion. pt was unable to recall recent meals intakes or if he was drinking the ONS. Not a candidate for diet education at this time. Will increase ONS to BID for variable intake and requests for fluids. Percent of energy/protein needs met: 28%/24% Burn Absent Trauma Absent GI Symptoms None Difficulty In Chewing Food Allergy No Cultural/Ethnic/Christianity Belief [place] foods Current % PO Poor (25-49%) Minimum of two criteria No physical signs of malnutrition #2 Nutrition Diagnosis Inadequate oral intake Etiology loss of appetite As Evidenced by Signs and Symptoms Pt has a PO intake of 25% of meals #1 Nutrition Diagnosis Predicted suboptimal energy intake As Evidenced by Signs and Symptoms Obtained PO intake hx Diagnosis Progress(for reassessment Resolved documentation) Is patient on ventilator? No Is Patient Ambulatory and/or Out of Bed No REE-([place]-confined to bed) 1573.644 Kcal/Kg value to use for calculation 32 Approximate Energy Requirements Using 1853 kcal/Kg Calculation Used for Recommendations Kcal/kg Additional Notes Protein needs 54-65g (1-1.2g/ kg) Fluid needs are 1ml/kcal Nutrition Intervention Change Diet Order: Continue Mechanical Soft Diet Add Supplement/Snack (indicate name/kcal Glucerna BID /protein ) Provides kCal: 440 Provides Protein (gm) 20 Goal #1 Meet at least 80% of kcal and protein needs Anticipated Discharge Needs: Mechanical soft consistent carbohydrates Follow-Up By: 09/12/20 Additional Comments F/U for PO intakes and ONS tolerance
--- NOTE | 2020-09-12 12:21 | Consultation ---
History of Present Illness Consult date: 09/12/20 Reason for consult: other (Anterior mediastinal/chest wall mass.) Chief complaint: Falling down at home - History of present illness History of present illness: This is a 65 year old [place] male with a hx of weight loss, chronic hip pain, who experienced multiple falls at home and presented to [facility] for evaluation, found to have an elevated serum calcium, subsequent work up included a CT of the Chest revealing a large anterior mediastinal mass with mediastinal adenopathy and erosion of the mass into the manubrium and anterior ribs. The CT of the head was negative, hip xrays with no fx or metastatic lesion, Pulm, INF DZ consulted,Oncology consulted/ please see their consults. He has had extensive weight loss and is not really that symptomatic from his chest. Past History Past Medical History: diabetes, hypertension Medications and Allergies Allergies Allergy/AdvReac Type Severity Reaction Status Date / Time No Known Allergies Allergy Unverified 09/07/20 14:22 Home Medications Medication Instructions Recorded Confirmed Last Taken Type Unobtainable 09/10/20 09/10/20 Unknown History Active Meds: Active Medications Acetaminophen (Acetaminophen 325 Mg Tab) 650 mg PO Q6H PRN PRN Reason: Pain, Mild (1-3) Dextrose (Dextrose 50% In Water (25gm) 50 Ml Syringe) 50 ml IV Q30MIN PRN; Protocol PRN Reason: Hypoglycemia Last Admin: 09/09/20 22:20 Dose: 50 ml Documented by: Famotidine (Famotidine 20 Mg Tab) 20 mg PO BID [facility] Last Admin: 09/12/20 10:02 Dose: 20 mg Documented by: Heparin Sodium (Porcine) (Heparin 5,000 Unit/1 Ml Vial) 5,000 unit SUB-Q Q8HR [facility] Last Admin: 09/12/20 05:58 Dose: 5,000 unit Documented by: Insulin Human Lispro (Insulin Lispro 100 Unit/Ml) 0 unit SUB-Q ACHS [facility]; Protocol Last Admin: 09/12/20 01:03 Dose: 3 unit Documented by: Methylprednisolone Sodium Succinate (Methylprednisolone Sod Succinate 125 Mg/2 Ml Inj) 80 mg IV Q12H [facility] Last Admin: 09/12/20 05:58 Dose: 80 mg Documented by: Multivitamins (Multivitamins ,Therapeutic Tab) 1 each PO QDAY [facility] Last Admin: 09/12/20 10:02 Dose: 1 each Documented by: Ondansetron HCl (Ondansetron 4 Mg/2 Ml Inj) 4 mg IV Q8H PRN PRN Reason: Nausea And Vomiting Oxycodone/Acetaminophen (Oxycodone /Acetaminophen 5-325mg Tab) 1 tab PO Q6H PRN PRN Reason: Pain, Moderate (4-6) Last Admin: 09/11/20 12:55 Dose: 1 tab Documented by: Review of Systems - Constitutional weight loss, fatigue, weakness, other (multiple falls at home) Exam Vital Signs Temp Pulse Resp BP Pulse Ox 98.5 F 66 18 198/134 99 09/07/20 14:12 09/07/20 14:12 09/07/20 14:12 09/07/20 14:12 09/07/20 14:12 - General physical appearance Positive: other (cachexia, deconditioned, masseter wasting) - Eyes Positive: PERRL, normal occular movement - ENT Positive: normal pinna, normal nares, normal mucosa, no hearing loss, no congestion - Neck Positive: no masses, no bruits, trachea midline, no venous distension - Respiratory Positive: normal expansion, clear to percussion - Cardiovascular Rhythm: regular - Extremities Extremities: no ischemia Peripheral Pulses: within normal limits - Breasts Breasts: normal - Abdomen Abdomen: Present: soft, bowel sounds normal Hernia: none - Integumentary no rash - Neurologic Neurologic: alert and oriented to time, place and person, motor strength and sensation are grossly intact - Musculoskeletal other (lying in bed , flores in place) Results - Labs 09/12/20 04:43 09/12/20 04:43 Abnormal lab results 09/08/20 09/12/20 09/12/20 Range/Units 09:54 00:01 04:43 RBC (3.65-5.03) M/mm3 Hgb (11.8-15.2) gm/dl Hct (35.5-45.6) % Lymph % (Auto) (13.4-35.0) % Lymph # (Auto) (1.2-5.4) K/mm3 Seg Neutrophils % (40.0-70.0) % Seg Neutrophils # (1.8-7.7) K/mm3 Sodium 130 L (137-145) mmol/L Chloride 95.5 L (98-107) mmol/L BUN 25 H (9-20) mg/dL Glucose 164 H (75-100) mg/dL POC Glucose 217 H (70-105) mg/dL Albumin 2.8 L 3.3 L (3.8-4.8) g/dL Bvegt-3-Xlnfcfvwc 0.5 H (0.2-0.3) g/dL PEP Interpretation see below H 09/12/20 09/12/20 09/12/20 Range/Units 04:43 07:42 12:00 RBC 3.16 L (3.65-5.03) M/mm3 Hgb 9.2 L (11.8-15.2) gm/dl Hct 27.1 L (35.5-45.6) % Lymph % (Auto) 10.6 L (13.4-35.0) % Lymph # (Auto) 1.0 L (1.2-5.4) K/mm3 Seg Neutrophils % 84.6 H (40.0-70.0) % Seg Neutrophils # 7.8 H (1.8-7.7) K/mm3 Sodium (137-145) mmol/L Chloride (98-107) mmol/L BUN (9-20) mg/dL Glucose (75-100) mg/dL POC Glucose 163 H 260 H (70-105) mg/dL Albumin (3.8-4.8) g/dL Cgtlz-1-Aickjwxlk (0.2-0.3) g/dL PEP Interpretation Diabetes panel 09/08/20 09/12/20 Range/Units 09:54 04:43 Sodium 130 L (137-145) mmol/L Potassium 4.6 (3.6-5.0) mmol/L Chloride 95.5 L (98-107) mmol/L Carbon Dioxide 26 (22-30) mmol/L BUN 25 H (9-20) mg/dL Creatinine 1.0 (0.8-1.3) mg/dL Glucose 164 H (75-100) mg/dL Calcium 9.9 (8.4-10.2) mg/dL AST 26 (5-40) units/L ALT 15 (7-56) units/L Alkaline Phosphatase 123 (35-129) units/L Total Protein 6.9 (6.3-8.2) g/dL Albumin 2.8 L 3.3 L (3.8-4.8) g/dL Calcium panel 09/08/20 09/12/20 Range/Units 09:54 04:43 Calcium 9.9 (8.4-10.2) mg/dL Albumin 2.8 L 3.3 L (3.8-4.8) g/dL Pituitary panel 09/12/20 Range/Units 04:43 Sodium 130 L (137-145) mmol/L Potassium 4.6 (3.6-5.0) mmol/L Chloride 95.5 L (98-107) mmol/L Carbon Dioxide 26 (22-30) mmol/L BUN 25 H (9-20) mg/dL Creatinine 1.0 (0.8-1.3) mg/dL Glucose 164 H (75-100) mg/dL Calcium 9.9 (8.4-10.2) mg/dL Adrenal panel 09/08/20 09/12/20 Range/Units 09:54 04:43 Sodium 130 L (137-145) mmol/L Potassium 4.6 (3.6-5.0) mmol/L Chloride 95.5 L (98-107) mmol/L Carbon Dioxide 26 (22-30) mmol/L BUN 25 H (9-20) mg/dL Creatinine 1.0 (0.8-1.3) mg/dL Glucose 164 H (75-100) mg/dL Calcium 9.9 (8.4-10.2) mg/dL Total Bilirubin < 0.20 (0.1-1.2) mg/dL AST 26 (5-40) units/L ALT 15 (7-56) units/L Alkaline Phosphatase 123 (35-129) units/L Total Protein 6.9 (6.3-8.2) g/dL Albumin 2.8 L 3.3 L (3.8-4.8) g/dL Assessment and Plan Large anterior mediastinal mass with invasion of chest wall, need tissue dx, should be easily amenable to CT directed biopsy (least invasive means to establish tissue dx) I suspect advanced malignancy, patient is NOT really a surgical candidate at this time, but everthing depends on tissue dx. I suspect advance malignancy, doubt infectious substrate. I have reviewed case with Dr. Pagan / Radiology and he feels this lesion is amenable to biopsy.
--- NOTE | 2020-09-12 16:04 | Progress Note ---
Assessment and Plan Impression: * hypercalcemia * hypokalemia * hypomagnesemia * Hyponatremia * PNA * failure to thrive * Type 2 DM * HTN * weight loss * volume depletion * anterior mediastinal mass Plan: * Continue to hold IVF, normal saline as calcium improved * Sodium now at 128->130, may have SIADH in setting of malignancy, encourage balanced po/solute intake * Holding calcitonin * Agree with pamidronate, steroids per oncology * follow up vitamin D panel. PTH appropriately suppressed. SPEP WNL. RAMYA WNL * replete k and mag prn * strict i/os and daily lytes * Agree with malignancy workup, CT abd/pelvis/chest reviewed. Appreciate pulm, onc input; agree mediastinal biopsy is crucial, ok for contrast to be used if needed from renal perspective. Plan for CT guided biopsy per surgery Subjective Date of service: 09/12/20 Principal diagnosis: hypercalcemia, weakness Interval history: No major changes noted Objective - Exam Narrative Exam: General: No acute distress, thin and chronically ill appearing Head: Atraumatic Eyes: normal appearance ENT: dry mucous membranes Neck: Normal appearance Chest: Clear to auscultation bilaterally CV: Regular rate and rhythm Abdomen: Soft, normal bowel sounds, nontender, nondistended, no rebound or guarding Back: Normal inspection Extremity: Normal inspection, full range of motion Neuro: Alert, Oriented x 3, speech clear, no gross motor sensory deficit Psych: Appropriate behavior Skin: Discoid hyperpigmented areas to bilateral upper extremities - Vital Signs Vital signs: Vital Signs - 12hr 09/12/20 09/12/20 07:44 12:08 Temperature 97.8 F 98.0 F Pulse Rate 85 87 Respiratory 18 18 Rate Blood Pressure 160/92 167/89 O2 Sat by Pulse 98 100 Oximetry - Lab 09/12/20 04:43 09/12/20 04:43 Most recent lab results Calcium 9.9 mg/dL (8.4-10.2) 09/12/20 04:43 Magnesium 1.50 mg/dL (1.7-2.3) L 09/09/20 04:59 Medications & Allergies - Medications Allergies/Adverse Reactions: Allergies No Known Allergies Allergy (Unverified 09/07/20 14:22) Home Medications: Home Medications Medication Instructions Recorded Confirmed Last Taken Type Unobtainable 09/10/20 09/10/20 Unknown History Active Medications: Generic Name Dose Route Start Last Admin Trade Name Freq PRN Reason Stop Dose Admin Acetaminophen 650 mg 09/08/20 11:56 Acetaminophen 325 Mg Tab PO Q6H PRN Pain, Mild (1-3) Dextrose 50 ml 09/07/20 18:15 09/09/20 22:20 Dextrose 50% In Water (25gm) 50 Ml Syringe IV 50 ml Q30MIN PRN Administration Hypoglycemia Protocol Famotidine 20 mg 09/07/20 22:00 09/12/20 10:02 Famotidine 20 Mg Tab PO 20 mg BID CLARICE Administration Heparin Sodium (Porcine) 5,000 unit 09/07/20 22:00 09/12/20 05:58 Heparin 5,000 Unit/1 Ml Vial SUB-Q 5,000 unit Q8HR CLARICE Administration Insulin Human Lispro 0 unit 09/07/20 22:00 09/12/20 01:03 Insulin Lispro 100 Unit/Ml SUB-Q 3 unit ACHS CLARICE Administration Protocol Methylprednisolone Sodium Succinate 80 mg 09/10/20 17:00 09/12/20 05:58 Methylprednisolone Sod Succinate 125 Mg/2 Ml Inj IV 80 mg Q12H CLARICE Administration Multivitamins 1 each 09/08/20 10:00 09/12/20 10:02 Multivitamins ,Therapeutic Tab PO 1 each QDAY CLARICE Administration Ondansetron HCl 4 mg 09/08/20 11:57 Ondansetron 4 Mg/2 Ml Inj IV Q8H PRN Nausea And Vomiting Oxycodone/Acetaminophen 1 tab 09/08/20 12:03 09/11/20 12:55 Oxycodone /Acetaminophen 5-325mg Tab PO 1 tab Q6H PRN Administration Pain, Moderate (4-6)
--- NOTE | 2020-09-12 20:56 | Hem/Onc Progress Note ---
Subjective Interval history: heme/onc data review 65yo [place] man with recent weakness, falling, eval for L hip pain since admission found to have a large anterior mediastinal mass and hypercalcemia 10-11 has been receiving calcitonin on steroid pulse DATA REVIEWED BELOW Chest CT: large anterior mediatinal mass with sternal bone invasion IMP: aggressive-appearing mediastinal mass, likely lymphoma if it's lymphoma, then he may not have such a bad prognosis recent hypercalcemia attrib to malignancy REC: biopsy mediastinal mass los depending on results of biopsy, he will need transfer for urgent chemo or rad steroid pulse, s/p pamidronate Active Medications Methylprednisolone Sodium Succinate (Methylprednisolone Sod Succinate 125 Mg/2 Ml Inj) 80 mg IV Q12H CLARICE Last Admin: 09/12/20 18:25 Dose: 80 mg Documented by: Laboratory Last Values WBC 9.2 K/mm3 (4.5-11.0) 09/12/20 04:43 Hct 27.1 % (35.5-45.6) L 09/12/20 04:43 Plt Count 308 K/mm3 (140-440) 09/12/20 04:43 Creatinine 1.0 mg/dL (0.8-1.3) 09/12/20 04:43 Calcium 9.9 mg/dL (8.4-10.2) 09/12/20 04:43 Lactate Dehydrogenase 335 units/L (91-180) H 09/07/20 17:01 6 Objective - Constitutional Vitals: Last Vital Signs Temp 98.2 F 09/12/20 20:32 Pulse 100 H 09/12/20 20:32 Resp 18 09/12/20 20:32 BP 136/89 09/12/20 20:32 Pulse Ox 99 09/12/20 20:32 - Labs Lab Results: Laboratory Results - last 24 hr 09/08/20 09/08/20 09/12/20 09:54 09:54 00:01 WBC RBC Hgb Hct MCV MCH MCHC RDW Plt Count Lymph % (Auto) [place] % (Auto) Eos % (Auto) Baso % (Auto) Lymph # (Auto) [place] # (Auto) Eos # (Auto) Baso # (Auto) Seg Neutrophils % Seg Neutrophils # Sodium Potassium Chloride Carbon Dioxide Anion Gap BUN Creatinine Estimated GFR BUN/Creatinine Ratio Glucose POC Glucose 217 H Calcium Total Bilirubin AST ALT Alkaline Phosphatase Serum Total Protein 6.4 Total Protein Albumin 2.8 L Albumin/Globulin Ratio Hocup-9-Irwnvsycy 0.5 H Njjqd-9-Xarmucley 0.9 Beta Globulins 0.5 Gamma Globulins 1.3 Abnorm Protein Band 1 see below PEP Interpretation see below H Angiotensin Convert Enz 22 09/12/20 09/12/20 09/12/20 04:43 04:43 07:42 WBC 9.2 RBC 3.16 L Hgb 9.2 L Hct 27.1 L MCV 86 MCH 29 MCHC 34 RDW 14.3 Plt Count 308 Lymph % (Auto) 10.6 L [place] % (Auto) 4.7 Eos % (Auto) 0.0 Baso % (Auto) 0.1 Lymph # (Auto) 1.0 L [place] # (Auto) 0.4 Eos # (Auto) 0.0 Baso # (Auto) 0.0 Seg Neutrophils % 84.6 H Seg Neutrophils # 7.8 H Sodium 130 L Potassium 4.6 Chloride 95.5 L Carbon Dioxide 26 Anion Gap 13 BUN 25 H Creatinine 1.0 Estimated GFR > 60 BUN/Creatinine Ratio 25 Glucose 164 H POC Glucose 163 H Calcium 9.9 Total Bilirubin < 0.20 AST 26 ALT 15 Alkaline Phosphatase 123 Serum Total Protein Total Protein 6.9 Albumin 3.3 L Albumin/Globulin Ratio 0.9 Stlxf-8-Nodlspwrr Dqzsy-3-Yvftorurs Beta Globulins Gamma Globulins Abnorm Protein Band 1 PEP Interpretation Angiotensin Convert Enz 09/12/20 09/12/20 12:00 15:49 WBC RBC Hgb Hct MCV MCH MCHC RDW Plt Count Lymph % (Auto) [place] % (Auto) Eos % (Auto) Baso % (Auto) Lymph # (Auto) [place] # (Auto) Eos # (Auto) Baso # (Auto) Seg Neutrophils % Seg Neutrophils # Sodium Potassium Chloride Carbon Dioxide Anion Gap BUN Creatinine Estimated GFR BUN/Creatinine Ratio Glucose POC Glucose 260 H 275 H Calcium Total Bilirubin AST ALT Alkaline Phosphatase Serum Total Protein Total Protein Albumin Albumin/Globulin Ratio Cbdlr-2-Eomxosqlk Roxdl-8-Dgmrkppfr Beta Globulins Gamma Globulins Abnorm Protein Band 1 PEP Interpretation Angiotensin Convert Enz Medications & Allergies - Medications Allergies/Adverse Reactions: Allergies No Known Allergies Allergy (Unverified 09/07/20 14:22) Home Medications: Home Medications Medication Instructions Recorded Confirmed Last Taken Type Unobtainable 09/10/20 09/10/20 Unknown History Active Medications: Generic Name Dose Route Start Last Admin Trade Name Eliel PRN Reason Stop Dose Admin Acetaminophen 650 mg 09/08/20 11:56 Acetaminophen 325 Mg Tab PO Q6H PRN Pain, Mild (1-3) Dextrose 50 ml 09/07/20 18:15 09/09/20 22:20 Dextrose 50% In Water (25gm) 50 Ml Syringe IV 50 ml Q30MIN PRN Administration Hypoglycemia Protocol Famotidine 20 mg 09/07/20 22:00 09/12/20 10:02 Famotidine 20 Mg Tab PO 20 mg BID CLARICE Administration Heparin Sodium (Porcine) 5,000 unit 09/07/20 22:00 09/12/20 18:26 Heparin 5,000 Unit/1 Ml Vial SUB-Q 5,000 unit Q8HR CLARICE Administration Insulin Human Lispro 0 unit 09/07/20 22:00 09/12/20 18:24 Insulin Lispro 100 Unit/Ml SUB-Q 4 unit ACHS CLARICE Administration Protocol Methylprednisolone Sodium Succinate 80 mg 09/10/20 17:00 09/12/20 18:25 Methylprednisolone Sod Succinate 125 Mg/2 Ml Inj IV 80 mg Q12H CLARICE Administration Multivitamins 1 each 09/08/20 10:00 09/12/20 10:02 Multivitamins ,Therapeutic Tab PO 1 each QDAY CLARICE Administration Ondansetron HCl 4 mg 09/08/20 11:57 Ondansetron 4 Mg/2 Ml Inj IV Q8H PRN Nausea And Vomiting Oxycodone/Acetaminophen 1 tab 09/08/20 12:03 09/11/20 12:55 Oxycodone /Acetaminophen 5-325mg Tab PO 1 tab Q6H PRN Administration Pain, Moderate (4-6)
[2020-09-12] MEDS: oxyCODONE /ACETAMINOPHEN 5-325MG TAB PO PRN (22:02)
[2020-09-13] MEDS: HEPARIN 5,000 UNIT/1 ML VIAL SUB-Q SCH ×3 (06:41→22:25)
[2020-09-13] MEDS: methylPREDNISolone Sod Succinate 125 MG/2 ML INJ IV SCH ×2 (06:41→18:17)
[2020-09-13 06:44] LABS: Alanine Aminotransferase 21 units/L (7-56); Albumin 3.5 g/dL (3.9-5); BUN/Creatinine Ratio 24; Blood Urea Nitrogen 22 mg/dL (9-20); Hemolysis Index 10
[2020-09-13] MEDS: FAMOTIDINE 20 MG TAB PO SCH ×2 (09:07→22:25)
[2020-09-13] MEDS: MULTIVITAMINS ,THERAPEUTIC TAB PO SCH (09:07)
[2020-09-13] MEDS: oxyCODONE /ACETAMINOPHEN 5-325MG TAB PO PRN ×2 (09:07→22:24)
--- NOTE | 2020-09-13 09:22 | Progress Note ---
Assessment and Plan Assessment and plan: Pneumonia Pneumonia pathway. Rocephin 1 g IV daily. Zithromax 500 mg IV daily. DuoNeb by nebulizer every 4 hours as needed. Chronic hypertension Home BP meds Toxic metabolic encephalopathy. 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 Continue calcitonin every 12 hours with a goal of less than 10.5. Check SPEP and RAMYA level. PTH decreased. Diabetes 1800 kcal ADA diet, sliding scale Accu-Chek before meals and at bedtime moderate dose covering. Hypokalemia Replete as needed. Hypomagnesemia Replete as needed. Left hip pain DVT prophylaxis Patient is on heparin 5000 units subcu every 8 hours for DVT prophylaxis. 09/08/2020 -Patient is on IV antibiotics for pneumonia -Electrolyte replacement protocol, BMP from this morning is pending -PT OT evaluation -CT head is negative for acute intracranial findings -Confusion is likely due to metabolic encephalopathy -Blood sugar is within normal limits -Nephrology is consulted for the management of hypercalcemia -ID is consulted for the management of pneumonia, suspected Covid and Covid test is pending 09/09/2020. Continue calcitonin and follow-up calcium levels. Nephrology following. Follow-up SPEP and RAMYA levels. Continue antibiotics for pneumonia. Check CT of the chest, abdomen and pelvis given hypercalcemia. Check PTH related protein. Consider consultation with oncology. 09/10/2020. Chest CT revealed Large infiltrating mass in the anterior mediastinum with bony destruction of the manubrium, sternum. Oncology consultation pending. Patient with hypercalcemia of malignancy treated with calcitonin per nephrology. Antibiotics discontinued by infectious disease. Pulmonary consultation 09/11/2020. I discussed the case with CT surgery (Dr. Bush) who will evaluate the patient for possible mediastinoscopy. Pulmonary, nephrology and oncology following. Continue calcitonin per nephrology recommendations. 09/12/2020. Patient for tissue biopsy per radiology. I discussed the case again with Dr. Bush who believes that patient is not a surgical candidate given the extensive disease/malignancy. I discussed the case with the son (ESTHER Granger number is [phone]) likely poor/grim diagnosis but await pathology of mass. Considerations for palliative/hospice care. 09/13/2020. 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 Surgery recommends tissue diagnosis with CT-guided biopsy. Radiology consulted History Interval history: No new issues overnight. Hospitalist Physical - Constitutional Vitals: Temp Pulse Resp BP Pulse Ox 98.6 F 87 17 155/95 98 09/13/20 03:59 09/13/20 03:59 09/13/20 03:59 09/13/20 03:59 09/13/20 03:59 General appearance: Present: no acute distress, well-nourished - EENT Eyes: Present: PERRL, EOM intact ENT: hearing intact, clear oral mucosa, dentition normal - Neck Neck: Present: supple, normal ROM - Respiratory Respiratory effort: normal Respiratory: bilateral: CTA - Cardiovascular Rhythm: regular Heart Sounds: Present: S1 & S2. Absent: gallop, rub - Extremities Extremities: no ischemia, No edema, Full ROM - Abdominal General gastrointestinal: soft, non-tender, non-distended, normal bowel sounds - Integumentary Integumentary: Present: clear, warm, dry - Neurologic Neurologic: CNII-XII intact, moves all extremities HEART Score - HEART Score Troponin: Troponin T 0.014 ng/mL (0.00-0.029) 09/07/20 15:28 Results - Labs CBC & Chem 7: 09/12/20 04:43 09/13/20 05:06 Labs: Laboratory Last Values WBC 9.2 K/mm3 (4.5-11.0) 09/12/20 04:43 RBC 3.16 M/mm3 (3.65-5.03) L 09/12/20 04:43 Hgb 9.2 gm/dl (11.8-15.2) L 09/12/20 04:43 Hct 27.1 % (35.5-45.6) L 09/12/20 04:43 MCV 86 fl (84-94) 09/12/20 04:43 MCH 29 pg (28-32) 09/12/20 04:43 MCHC 34 % (32-34) 09/12/20 04:43 RDW 14.3 % (13.2-15.2) 09/12/20 04:43 Plt Count 308 K/mm3 (140-440) 09/12/20 04:43 Lymph % (Auto) 10.6 % (13.4-35.0) L 09/12/20 04:43 [place] % (Auto) 4.7 % (0.0-7.3) 09/12/20 04:43 Eos % (Auto) 0.0 % (0.0-4.3) 09/12/20 04:43 Baso % (Auto) 0.1 % (0.0-1.8) 09/12/20 04:43 Lymph # (Auto) 1.0 K/mm3 (1.2-5.4) L 09/12/20 04:43 [place] # (Auto) 0.4 K/mm3 (0.0-0.8) 09/12/20 04:43 Eos # (Auto) 0.0 K/mm3 (0.0-0.4) 09/12/20 04:43 Baso # (Auto) 0.0 K/mm3 (0.0-0.1) 09/12/20 04:43 Seg Neutrophils % 84.6 % (40.0-70.0) H 09/12/20 04:43 Seg Neutrophils # 7.8 K/mm3 (1.8-7.7) H 09/12/20 04:43 D-Dimer 472.35 ng/mlDDU (0-234) H 09/07/20 17:01 Sodium 130 mmol/L (137-145) L 09/13/20 05:06 Potassium 4.0 mmol/L (3.6-5.0) 09/13/20 05:06 Chloride 94.6 mmol/L (98-107) L 09/13/20 05:06 Carbon Dioxide 28 mmol/L (22-30) 09/13/20 05:06 Anion Gap 11 mmol/L 09/13/20 05:06 BUN 22 mg/dL (9-20) H 09/13/20 05:06 Creatinine 0.9 mg/dL (0.8-1.3) 09/13/20 05:06 Estimated GFR > 60 ml/min 09/13/20 05:06 BUN/Creatinine Ratio 24 % 09/13/20 05:06 Glucose 120 mg/dL (75-100) H 09/13/20 05:06 POC Glucose 232 mg/dL (70-105) H 09/12/20 21:31 Uric Acid 4.5 mg/dL (3.5-7.6) 09/13/20 05:06 Calcium 9.0 mg/dL (8.4-10.2) 09/13/20 05:06 Magnesium 1.50 mg/dL (1.7-2.3) L 09/09/20 04:59 Ferritin 389.0 ng/mL (30.0-300.0) H 09/07/20 17:01 Total Bilirubin < 0.20 mg/dL (0.1-1.2) 09/13/20 05:06 AST 34 units/L (5-40) 09/13/20 05:06 ALT 21 units/L (7-56) 09/13/20 05:06 Alkaline Phosphatase 129 units/L (35-129) 09/13/20 05:06 Lactate Dehydrogenase 335 units/L (91-180) H 09/07/20 17:01 Total Creatine Kinase 146 units/L (55-170) 09/07/20 15:28 Troponin T 0.014 ng/mL (0.00-0.029) 09/07/20 15:28 C-Reactive Protein 1.60 mg/dL (0.00-1.30) H 09/07/20 17:01 Serum Total Protein 6.4 g/dL (6.1-8.1) 09/08/20 09:54 Total Protein 7.2 g/dL (6.3-8.2) 09/13/20 05:06 Albumin 3.5 g/dL (3.9-5) L 09/13/20 05:06 Albumin/Globulin Ratio 0.9 % 09/13/20 05:06 Vrkhw-2-Tjtvucdbd 0.5 g/dL (0.2-0.3) H 09/08/20 09:54 Vaxsp-0-Jachajdml 0.9 g/dL (0.5-0.9) 09/08/20 09:54 Beta Globulins 0.5 g/dL (0.2-0.5) 09/08/20 09:54 Gamma Globulins 1.3 g/dL (0.8-1.7) 09/08/20 09:54 Abnorm Protein Band 1 see below 09/08/20 09:54 PEP Interpretation see below H 09/08/20 09:54 Angiotensin Convert Enz 22 U/L (9-67) 09/08/20 09:54 Carcinoembryonic Ag 3.1 ng/mL (0.0-2.4) H 09/11/20 05:18 Procalcitonin < 0.05 ng/mL (<0.15) 09/07/20 17:01 TSH 2.730 mlU/mL (0.270-4.200) 09/07/20 15:28 Free T4 1.34 ng/dL (0.76-1.46) 09/07/20 15:28 PTH Intact 5.89 pg/mL (15-65) L 09/08/20 09:54 Urine Color Straw (Yellow) 09/07/20 21:05 Urine Turbidity Clear (Clear) 09/07/20 21:05 Urine pH 7.0 (5.0-7.0) 09/07/20 21:05 Ur Specific [place] 1.005 (1.003-1.030) 09/07/20 21:05 Urine Protein <15 mg/dl mg/dL (Negative) 09/07/20 21:05 Urine Glucose (UA) Neg mg/dL (Negative) 09/07/20 21:05 Urine Ketones Neg mg/dL (Negative) 09/07/20 21:05 Urine Blood Neg (Negative) 09/07/20 21:05 Urine Nitrite Neg (Negative) 09/07/20 21:05 Urine Bilirubin Neg (Negative) 09/07/20 21:05 Urine Urobilinogen < 2.0 mg/dL (<2.0) 09/07/20 21:05 Ur Leukocyte Esterase Neg (Negative) 09/07/20 21:05 Urine WBC (Auto) 1.0 /HPF (0.0-6.0) 09/07/20 21:05 Urine RBC (Auto) 1.0 /HPF (0.0-6.0) 09/07/20 21:05 Urine Bacteria (Auto) 1+ /HPF (Negative) 09/07/20 21:05 Urine Opiates Screen Negative 09/07/20 21:05 Urine Methadone Screen Negative 09/07/20 21:05 Ur Barbiturates Screen Negative 09/07/20 21:05 Ur Phencyclidine Scrn Negative 09/07/20 21:05 Ur Amphetamines Screen Negative 09/07/20 21:05 U Benzodiazepines Scrn Negative 09/07/20 21:05 Urine Cocaine Screen Negative 09/07/20 21:05 U Marijuana (THC) Screen Negative 09/07/20 21:05 Drugs of Abuse Note Disclamer 09/07/20 21:05 Plasma/Serum Alcohol < 0.01 % (0-0.07) 09/07/20 15:28 Coronavirus (PCR) Negative (Negative) 09/08/20 10:06 Microbiology: Microbiology 09/07/20 17:01 Peripheral/Venous Blood Culture - Final NO GROWTH AFTER 5 DAYS 09/07/20 17:01 Peripheral/Venous Blood Culture - Final NO GROWTH AFTER 5 DAYS Monique/IV: Voiding Method Condom Catheter Active Medications - Current Medications Current Medications: Generic Name Dose Route Start Last Admin Trade Name Freq PRN Reason Stop Dose Admin Acetaminophen 650 mg 09/08/20 11:56 Acetaminophen 325 Mg Tab PO Q6H PRN Pain, Mild (1-3) Dextrose 50 ml 09/07/20 18:15 09/09/20 22:20 Dextrose 50% In Water (25gm) 50 Ml Syringe IV 50 ml Q30MIN PRN Administration Hypoglycemia Protocol Famotidine 20 mg 09/07/20 22:00 09/13/20 09:07 Famotidine 20 Mg Tab PO 20 mg BID CLARICE Administration Heparin Sodium (Porcine) 5,000 unit 09/07/20 22:00 09/13/20 06:41 Heparin 5,000 Unit/1 Ml Vial SUB-Q 5,000 unit Q8HR CLARICE Administration Insulin Human Lispro 0 unit 09/07/20 22:00 09/12/20 22:00 Insulin Lispro 100 Unit/Ml SUB-Q 2 unit ACHS CLARICE Administration Protocol Methylprednisolone Sodium Succinate 80 mg 09/10/20 17:00 09/13/20 06:41 Methylprednisolone Sod Succinate 125 Mg/2 Ml Inj IV 80 mg Q12H CLARICE Administration Multivitamins 1 each 09/08/20 10:00 09/13/20 09:07 Multivitamins ,Therapeutic Tab PO 1 each QDAY CLARICE Administration Ondansetron HCl 4 mg 09/08/20 11:57 Ondansetron 4 Mg/2 Ml Inj IV Q8H PRN Nausea And Vomiting Oxycodone/Acetaminophen 1 tab 09/08/20 12:03 09/13/20 09:07 Oxycodone /Acetaminophen 5-325mg Tab PO 1 tab Q6H PRN Administration Pain, Moderate (4-6) Nutrition/Malnutrition Assess - Dietary Evaluation Nutrition/Malnutrition Findings: Nutrition Notes Start: 09/08/20 08:59 Freq: Status: Active Protocol: Document 09/12/20 10:34 CW (Rec: 09/12/20 10:49 CW [id number]) Nutrition Notes Initial or Follow up Reassessment Current Diagnosis Diabetes,Hypertension Other Pertinent Diagnosis PNA, Confusion Current Diet Mechanical soft Labs/Tests Na 130 BG 164 BUN 25 Pertinent Medications Solumedrol Humalog Height 5 ft 6 in Weight 55.6 kg [place] Body Weight (kg) 64.54 BMI 19.8 Weight change and time frame weight change noted Weight Status Underweight Subjective/Other Information F/U for PO intakes and ONS tolerance. Some weight fluctuation noted. Weight fluctuates around +/-3 kg range. Not concerned for weight change at this time. Pt has a good appetite and has requested snacks. Pt is meeting needs but will continue ONS for weight gain to healthy BMI for older adult . No reports of N/V/D/C. pt states not receving Glucerna. Will follow up with kitchen. Percent of energy/protein needs met: 81%/100% Burn Absent Trauma Absent GI Symptoms None Difficulty In Chewing Food Allergy No Cultural/Ethnic/L[employer] Belief [place] foods Current % PO Good (75-100%) Minimum of two criteria No Reduced Anaesthetic Technician Strength Measurably Reduced (severe) #2 Nutrition Diagnosis Inadequate oral intake As Evidenced by Signs and Symptoms PO intake of 75% of meals Diagnosis Progress(for reassessment Improved documentation) Is patient on ventilator? No Is Patient Ambulatory and/or Out of Bed Yes REE-([facility]-ambulatory/OOB) [ 1668.875 [id number]] Kcal/Kg value to use for calculation 34 Approximate Energy Requirements Using 1890 kcal/Kg Calculation Used for Recommendations Kcal/kg Additional Notes Protein needs 56-67g (1-1.2g/ kg) Fluid needs are 1ml/kcal Nutrition Intervention Change Diet Order: Continue Mechanical Soft Diet Add Supplement/Snack (indicate name/kcal Glucerna BID /protein ) Provides kCal: 440 Provides Protein (gm) 20 Goal #1 Meet at least 80% of kcal and protein needs Anticipated Discharge Needs: Mechanical soft consistent carbohydrates and ONS PRN Follow-Up By: 09/16/20 Additional Comments F/U for PO intakes and ONS
[2020-09-13] MEDS ORDERED: HYDROmorphone 1 MG/1 ML INJ ONE (13:34)
[2020-09-13] MEDS ORDERED: ONDANSETRON 4 MG/2 ML INJ IV NR (13:41)
[2020-09-13] MEDS ORDERED: HYDROmorphone 2 MG/1 ML INJ IV NR (13:41)
[2020-09-13 13:57] LABS: INR 0.96 (0.87-1.13)
[2020-09-13 13:58] LABS: Partial Thromboplastin Time 29.6 Sec. (24.2-36.6)
--- NOTE | 2020-09-13 15:17 | Progress Note ---
Assessment and Plan Impression: * hypercalcemia * hypokalemia * hypomagnesemia * Hyponatremia * PNA * failure to thrive * Type 2 DM * HTN * weight loss * volume depletion * anterior mediastinal mass Plan: * Continue to hold IVF, normal saline as calcium improved * Sodium now stable 130, may have SIADH in setting of malignancy, encourage balanced po/solute intake, ordered urine osm, na * Holding calcitonin * pamidronate, steroids per oncology * follow up vitamin D panel. PTH appropriately suppressed. SPEP WNL. RAMYA WNL * replete k and mag prn * strict i/os and daily lytes * Agree with malignancy workup, CT abd/pelvis/chest reviewed. Appreciate pulm, onc input; agree mediastinal biopsy is crucial, ok for contrast to be used if needed from renal perspective. Plan for CT guided biopsy per surgery Subjective Date of service: 09/13/20 Principal diagnosis: hypercalcemia, weakness Interval history: No major changes noted Objective - Exam Narrative Exam: General: No acute distress, thin and chronically ill appearing Head: Atraumatic Eyes: normal appearance ENT: dry mucous membranes Neck: Normal appearance Chest: Clear to auscultation bilaterally CV: Regular rate and rhythm Abdomen: Soft, normal bowel sounds, nontender, nondistended, no rebound or guarding Back: Normal inspection Extremity: Normal inspection, full range of motion Neuro: Alert, Oriented x 3, speech clear, no gross motor sensory deficit Psych: Appropriate behavior Skin: Discoid hyperpigmented areas to bilateral upper extremities - Vital Signs Vital signs: Vital Signs - 12hr 09/13/20 09/13/20 03:59 08:11 Temperature 98.6 F 98.6 F Pulse Rate 87 84 Respiratory 17 18 Rate Blood Pressure 155/95 144/80 O2 Sat by Pulse 98 98 Oximetry - Lab 09/12/20 04:43 09/13/20 05:06 Most recent lab results Calcium 9.0 mg/dL (8.4-10.2) 09/13/20 05:06 Magnesium 1.50 mg/dL (1.7-2.3) L 09/09/20 04:59 Medications & Allergies - Medications Allergies/Adverse Reactions: Allergies No Known Allergies Allergy (Unverified 09/07/20 14:22) Home Medications: Home Medications Medication Instructions Recorded Confirmed Last Taken Type Unobtainable 09/10/20 09/10/20 Unknown History Active Medications: Generic Name Dose Route Start Last Admin Trade Name Aaronq PRN Reason Stop Dose Admin Acetaminophen 650 mg 09/08/20 11:56 Acetaminophen 325 Mg Tab PO Q6H PRN Pain, Mild (1-3) Dextrose 50 ml 09/07/20 18:15 09/09/20 22:20 Dextrose 50% In Water (25gm) 50 Ml Syringe IV 50 ml Q30MIN PRN Administration Hypoglycemia Protocol Famotidine 20 mg 09/07/20 22:00 09/13/20 09:07 Famotidine 20 Mg Tab PO 20 mg BID CLARICE Administration Heparin Sodium (Porcine) 5,000 unit 09/07/20 22:00 09/13/20 06:41 Heparin 5,000 Unit/1 Ml Vial SUB-Q 5,000 unit Q8HR CLARICE Administration Insulin Human Lispro 0 unit 09/07/20 22:00 09/12/20 22:00 Insulin Lispro 100 Unit/Ml SUB-Q 2 unit ACHS CLARICE Administration Protocol Methylprednisolone Sodium Succinate 80 mg 09/10/20 17:00 09/13/20 06:41 Methylprednisolone Sod Succinate 125 Mg/2 Ml Inj IV 80 mg Q12H CLARICE Administration Multivitamins 1 each 09/08/20 10:00 09/13/20 09:07 Multivitamins ,Therapeutic Tab PO 1 each QDAY CLARICE Administration Ondansetron HCl 4 mg 09/08/20 11:57 Ondansetron 4 Mg/2 Ml Inj IV Q8H PRN Nausea And Vomiting Oxycodone/Acetaminophen 1 tab 09/08/20 12:03 09/13/20 09:07 Oxycodone /Acetaminophen 5-325mg Tab PO 1 tab Q6H PRN Administration Pain, Moderate (4-6)
[2020-09-13] MEDS: INSULIN LISPRO 100 UNIT/ML SUB-Q SCH ×3 (16:24→22:37)
[2020-09-14 05:26] LABS: Alanine Aminotransferase 24 units/L (7-56); Albumin 3.2 g/dL (3.9-5); BUN/Creatinine Ratio 24; Blood Urea Nitrogen 22 mg/dL (9-20); Calcium 8.5 mg/dL (8.4-10.2); Hemolysis Index 3
[2020-09-14] MEDS: HEPARIN 5,000 UNIT/1 ML VIAL SUB-Q SCH ×3 (05:36→22:06)
[2020-09-14] MEDS: methylPREDNISolone Sod Succinate 125 MG/2 ML INJ IV SCH ×2 (05:36→17:06)
[2020-09-14] MEDS: FAMOTIDINE 20 MG TAB PO SCH ×2 (09:21→22:05)
[2020-09-14] MEDS: MULTIVITAMINS ,THERAPEUTIC TAB PO SCH (09:21)
[2020-09-14] MEDS: INSULIN LISPRO 100 UNIT/ML SUB-Q SCH ×4 (09:21→23:05)
--- NOTE | 2020-09-14 10:09 | Progress Note ---
Assessment and Plan Assessment and plan: Pneumonia Pneumonia pathway. Rocephin 1 g IV daily. Zithromax 500 mg IV daily. DuoNeb by nebulizer every 4 hours as needed. Chronic hypertension Home BP meds Toxic metabolic encephalopathy. 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 Continue calcitonin every 12 hours with a goal of less than 10.5. Check SPEP and RAMYA level. PTH decreased. Diabetes 1800 kcal ADA diet, sliding scale Accu-Chek before meals and at bedtime moderate dose covering. Hypokalemia Replete as needed. Hypomagnesemia Replete as needed. Left hip pain DVT prophylaxis Patient is on heparin 5000 units subcu every 8 hours for DVT prophylaxis. 09/08/2020 -Patient is on IV antibiotics for pneumonia -Electrolyte replacement protocol, BMP from this morning is pending -PT OT evaluation -CT head is negative for acute intracranial findings -Confusion is likely due to metabolic encephalopathy -Blood sugar is within normal limits -Nephrology is consulted for the management of hypercalcemia -ID is consulted for the management of pneumonia, suspected Covid and Covid test is pending 09/09/2020. Continue calcitonin and follow-up calcium levels. Nephrology following. Follow-up SPEP and RAMYA levels. Continue antibiotics for pneumonia. Check CT of the chest, abdomen and pelvis given hypercalcemia. Check PTH related protein. Consider consultation with oncology. 09/10/2020. Chest CT revealed Large infiltrating mass in the anterior mediastinum with bony destruction of the manubrium, sternum. Oncology consultation pending. Patient with hypercalcemia of malignancy treated with calcitonin per nephrology. Antibiotics discontinued by infectious disease. Pulmonary consultation 09/11/2020. I discussed the case with CT surgery (Dr. Bush) who will evaluate the patient for possible mediastinoscopy. Pulmonary, nephrology and oncology following. Continue calcitonin per nephrology recommendations. 09/12/2020. Patient for tissue biopsy per radiology. I discussed the case again with Dr. Bush who believes that patient is not a surgical candidate given the extensive disease/malignancy. I discussed the case with the son (ESTHER Granger number is [phone]) likely poor/grim diagnosis but await pathology of mass. Considerations for palliative/hospice care. 09/13/2020. 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 Surgery recommends tissue diagnosis with CT-guided biopsy. Radiology consulted 09/14/2020. Patient went down yesterday for CT-guided biopsy but refused. I discussed with the patient importance of the test and he states that he will do it on Wednesday. Consider hospice evaluation. Hyponatremia may be secondary to SIADH in the setting of malignancy. Follow-up BMP in a.m. Continue strict I/Os. Nephrology following. Continue pamidronate and steroids per oncology. SPEP and RAMYA normal. History Interval history: No new issues overnight. Hospitalist Physical - Constitutional Vitals: Temp Pulse Resp BP Pulse Ox 97.9 F 94 H 16 151/91 100 09/14/20 03:56 09/14/20 03:56 09/14/20 03:56 09/14/20 03:56 09/14/20 03:56 General appearance: Present: no acute distress, well-nourished - EENT Eyes: Present: PERRL, EOM intact ENT: hearing intact, clear oral mucosa, dentition normal - Neck Neck: Present: supple, normal ROM - Respiratory Respiratory effort: normal Respiratory: bilateral: CTA - Cardiovascular Rhythm: regular Heart Sounds: Present: S1 & S2. Absent: gallop, rub - Extremities Extremities: no ischemia, No edema, Full ROM - Abdominal General gastrointestinal: soft, non-tender, non-distended, normal bowel sounds - Integumentary Integumentary: Present: clear, warm, dry - Neurologic Neurologic: CNII-XII intact, moves all extremities HEART Score - HEART Score Troponin: Troponin T 0.014 ng/mL (0.00-0.029) 09/07/20 15:28 Results - Labs CBC & Chem 7: 09/12/20 04:43 09/14/20 04:34 Labs: Laboratory Last Values WBC 9.2 K/mm3 (4.5-11.0) 09/12/20 04:43 RBC 3.16 M/mm3 (3.65-5.03) L 09/12/20 04:43 Hgb 9.2 gm/dl (11.8-15.2) L 09/12/20 04:43 Hct 27.1 % (35.5-45.6) L 09/12/20 04:43 MCV 86 fl (84-94) 09/12/20 04:43 MCH 29 pg (28-32) 09/12/20 04:43 MCHC 34 % (32-34) 09/12/20 04:43 RDW 14.3 % (13.2-15.2) 09/12/20 04:43 Plt Count 308 K/mm3 (140-440) 09/12/20 04:43 Lymph % (Auto) 10.6 % (13.4-35.0) L 09/12/20 04:43 [place] % (Auto) 4.7 % (0.0-7.3) 09/12/20 04:43 Eos % (Auto) 0.0 % (0.0-4.3) 09/12/20 04:43 Baso % (Auto) 0.1 % (0.0-1.8) 09/12/20 04:43 Lymph # (Auto) 1.0 K/mm3 (1.2-5.4) L 09/12/20 04:43 [place] # (Auto) 0.4 K/mm3 (0.0-0.8) 09/12/20 04:43 Eos # (Auto) 0.0 K/mm3 (0.0-0.4) 09/12/20 04:43 Baso # (Auto) 0.0 K/mm3 (0.0-0.1) 09/12/20 04:43 Seg Neutrophils % 84.6 % (40.0-70.0) H 09/12/20 04:43 Seg Neutrophils # 7.8 K/mm3 (1.8-7.7) H 09/12/20 04:43 PT 12.6 Sec. (12.2-14.9) 09/13/20 13:17 INR 0.96 (0.87-1.13) 09/13/20 13:17 APTT 29.6 Sec. (24.2-36.6) 09/13/20 13:17 D-Dimer 472.35 ng/mlDDU (0-234) H 09/07/20 17:01 Sodium 126 mmol/L (137-145) L 09/14/20 04:34 Potassium 3.5 mmol/L (3.6-5.0) L 09/14/20 04:34 Chloride 89.9 mmol/L (98-107) L 09/14/20 04:34 Carbon Dioxide 23 mmol/L (22-30) 09/14/20 04:34 Anion Gap 17 mmol/L 09/14/20 04:34 BUN 22 mg/dL (9-20) H 09/14/20 04:34 Creatinine 0.9 mg/dL (0.8-1.3) 09/14/20 04:34 Estimated GFR > 60 ml/min 09/14/20 04:34 BUN/Creatinine Ratio 24 % 09/14/20 04:34 Glucose 323 mg/dL (75-100) H 09/14/20 04:34 POC Glucose 306 mg/dL (70-105) H 09/13/20 22:31 Uric Acid 4.5 mg/dL (3.5-7.6) 09/13/20 05:06 Calcium 8.5 mg/dL (8.4-10.2) 09/14/20 04:34 Magnesium 1.50 mg/dL (1.7-2.3) L 09/09/20 04:59 Ferritin 389.0 ng/mL (30.0-300.0) H 09/07/20 17:01 Total Bilirubin < 0.20 mg/dL (0.1-1.2) 09/14/20 04:34 AST 33 units/L (5-40) 09/14/20 04:34 ALT 24 units/L (7-56) 09/14/20 04:34 Alkaline Phosphatase 122 units/L (35-129) 09/14/20 04:34 Lactate Dehydrogenase 335 units/L (91-180) H 09/07/20 17:01 Total Creatine Kinase 146 units/L (55-170) 09/07/20 15:28 Troponin T 0.014 ng/mL (0.00-0.029) 09/07/20 15:28 C-Reactive Protein 1.60 mg/dL (0.00-1.30) H 09/07/20 17:01 Serum Total Protein 6.4 g/dL (6.1-8.1) 09/08/20 09:54 Total Protein 6.3 g/dL (6.3-8.2) 09/14/20 04:34 Albumin 3.2 g/dL (3.9-5) L 09/14/20 04:34 Albumin/Globulin Ratio 1.0 % 09/14/20 04:34 Ofriw-3-Mksaswfjy 0.5 g/dL (0.2-0.3) H 09/08/20 09:54 Lfzrs-5-Rslrehuzj 0.9 g/dL (0.5-0.9) 09/08/20 09:54 Beta Globulins 0.5 g/dL (0.2-0.5) 09/08/20 09:54 Gamma Globulins 1.3 g/dL (0.8-1.7) 09/08/20 09:54 Abnorm Protein Band 1 see below 09/08/20 09:54 PEP Interpretation see below H 09/08/20 09:54 Angiotensin Convert Enz 22 U/L (9-67) 09/08/20 09:54 Carcinoembryonic Ag 3.1 ng/mL (0.0-2.4) H 09/11/20 05:18 Procalcitonin < 0.05 ng/mL (<0.15) 09/07/20 17:01 TSH 2.730 mlU/mL (0.270-4.200) 09/07/20 15:28 Free T4 1.34 ng/dL (0.76-1.46) 09/07/20 15:28 PTH Intact 5.89 pg/mL (15-65) L 09/08/20 09:54 Urine Color Straw (Yellow) 09/07/20 21:05 Urine Turbidity Clear (Clear) 09/07/20 21:05 Urine pH 7.0 (5.0-7.0) 09/07/20 21:05 Ur Specific [place] 1.005 (1.003-1.030) 09/07/20 21:05 Urine Protein <15 mg/dl mg/dL (Negative) 09/07/20 21:05 Urine Glucose (UA) Neg mg/dL (Negative) 09/07/20 21:05 Urine Ketones Neg mg/dL (Negative) 09/07/20 21:05 Urine Blood Neg (Negative) 09/07/20 21:05 Urine Nitrite Neg (Negative) 09/07/20 21:05 Urine Bilirubin Neg (Negative) 09/07/20 21:05 Urine Urobilinogen < 2.0 mg/dL (<2.0) 09/07/20 21:05 Ur Leukocyte Esterase Neg (Negative) 09/07/20 21:05 Urine WBC (Auto) 1.0 /HPF (0.0-6.0) 09/07/20 21:05 Urine RBC (Auto) 1.0 /HPF (0.0-6.0) 09/07/20 21:05 Urine Bacteria (Auto) 1+ /HPF (Negative) 09/07/20 21:05 Urine Opiates Screen Negative 09/07/20 21:05 Urine Methadone Screen Negative 09/07/20 21:05 Ur Barbiturates Screen Negative 09/07/20 21:05 Ur Phencyclidine Scrn Negative 09/07/20 21:05 Ur Amphetamines Screen Negative 09/07/20 21:05 U Benzodiazepines Scrn Negative 09/07/20 21:05 Urine Cocaine Screen Negative 09/07/20 21:05 U Marijuana (THC) Screen Negative 09/07/20 21:05 Drugs of Abuse Note Disclamer 09/07/20 21:05 Plasma/Serum Alcohol < 0.01 % (0-0.07) 09/07/20 15:28 Coronavirus (PCR) Negative (Negative) 09/08/20 10:06 Monique/IV: Voiding Method Condom Catheter Active Medications - Current Medications Current Medications: Generic Name Dose Route Start Last Admin Trade Name Freq PRN Reason Stop Dose Admin Acetaminophen 650 mg 09/08/20 11:56 Acetaminophen 325 Mg Tab PO Q6H PRN Pain, Mild (1-3) Dextrose 50 ml 09/07/20 18:15 09/09/20 22:20 Dextrose 50% In Water (25gm) 50 Ml Syringe IV 50 ml Q30MIN PRN Administration Hypoglycemia Protocol Famotidine 20 mg 09/07/20 22:00 09/14/20 09:21 Famotidine 20 Mg Tab PO 20 mg BID CLARICE Administration Heparin Sodium (Porcine) 5,000 unit 09/07/20 22:00 09/14/20 05:36 Heparin 5,000 Unit/1 Ml Vial SUB-Q 5,000 unit Q8HR CLARICE Administration Insulin Human Lispro 0 unit 09/07/20 22:00 09/14/20 09:21 Insulin Lispro 100 Unit/Ml SUB-Q 3 unit ACHS CLARICE Administration Protocol Methylprednisolone Sodium Succinate 80 mg 09/10/20 17:00 09/14/20 05:36 Methylprednisolone Sod Succinate 125 Mg/2 Ml Inj IV 80 mg Q12H CLARICE Administration Multivitamins 1 each 09/08/20 10:00 09/14/20 09:21 Multivitamins ,Therapeutic Tab PO 1 each QDAY CLARICE Administration Ondansetron HCl 4 mg 09/08/20 11:57 Ondansetron 4 Mg/2 Ml Inj IV Q8H PRN Nausea And Vomiting Oxycodone/Acetaminophen 1 tab 09/08/20 12:03 09/13/20 22:24 Oxycodone /Acetaminophen 5-325mg Tab PO 1 tab Q6H PRN Administration Pain, Moderate (4-6) Nutrition/Malnutrition Assess - Dietary Evaluation Nutrition/Malnutrition Findings: Nutrition Notes Start: 09/08/20 08:59 Freq: Status: Active Protocol: Document 09/12/20 10:34 CW (Rec: 09/12/20 10:49 CW [id number]) Nutrition Notes Initial or Follow up Reassessment Current Diagnosis Diabetes,Hypertension Other Pertinent Diagnosis PNA, Confusion Current Diet Mechanical soft Labs/Tests Na 130 BG 164 BUN 25 Pertinent Medications Solumedrol Humalog Height 5 ft 6 in Weight 55.6 kg [place] Body Weight (kg) 64.54 BMI 19.8 Weight change and time frame weight change noted Weight Status Underweight Subjective/Other Information F/U for PO intakes and ONS tolerance. Some weight fluctuation noted. Weight fluctuates around +/-3 kg range. Not concerned for weight change at this time. Pt has a good appetite and has requested snacks. Pt is meeting needs but will continue ONS for weight gain to healthy BMI for older adult . No reports of N/V/D/C. pt states not receving Glucerna. Will follow up with kitchen. 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 No Is Patient Ambulatory and/or Out of Bed Yes REE-([place]-St. Jeor-ambulatory/OOB) [ 0379.879 NUTR.[id number]] Kcal/Kg value to use for calculation 34 Approximate Energy Requirements Using 1890 kcal/Kg Calculation Used for Recommendations Kcal/kg Additional Notes Protein needs 56-67g (1-1.2g/ kg) Fluid needs are 1ml/kcal Nutrition Intervention Change Diet Order: Continue Mechanical Soft Diet Add Supplement/Snack (indicate name/kcal Glucerna BID /protein ) Provides kCal: 440 Provides Protein (gm) 20 Goal #1 Meet at least 80% of kcal and protein needs Anticipated Discharge Needs: Mechanical soft consistent carbohydrates and ONS PRN Follow-Up By: 09/16/20 Additional Comments F/U for PO intakes and ONS
--- NOTE | 2020-09-14 14:48 | Progress Note ---
Assessment and Plan Impression: * hypercalcemia * hypokalemia * hypomagnesemia * Hyponatremia * PNA * failure to thrive * Type 2 DM * HTN * weight loss * volume depletion * anterior mediastinal mass Plan: * Continue to hold IVF, normal saline as calcium improved * Sodium now worsened 130->126, initially thought related to hypotonic fluids, but has worsened with normal saline as well. May have SIADH in setting of malignancy, encourage balanced po/solute intake, ordered urine osm, na which are pending. Will start salt tabs for presumptive SIADH, would offer mild fluid restriction as well * Holding calcitonin * pamidronate, steroids per oncology * follow up vitamin D panel. PTH appropriately suppressed. SPEP WNL. RAMYA WNL * replete k and mag prn * strict i/os and daily lytes * Agree with malignancy workup, CT abd/pelvis/chest reviewed. Appreciate pulm, onc input; agree mediastinal biopsy is crucial, ok for contrast to be used if needed from renal perspective. Plan for CT guided biopsy per surgery, patient refused, consideration of hospice Subjective Date of service: 09/14/20 Principal diagnosis: hypercalcemia, weakness Interval history: Refused CT biopsy yesterday Objective - Exam Narrative Exam: General: No acute distress, thin and chronically ill appearing Head: Atraumatic Eyes: normal appearance ENT: dry mucous membranes Neck: Normal appearance Chest: Clear to auscultation bilaterally CV: Regular rate and rhythm Abdomen: Soft, normal bowel sounds, nontender, nondistended, no rebound or guarding Back: Normal inspection Extremity: Normal inspection, full range of motion Neuro: Alert, Oriented x 3, speech clear, no gross motor sensory deficit Psych: Appropriate behavior Skin: Discoid hyperpigmented areas to bilateral upper extremities - Vital Signs Vital signs: Vital Signs - 12hr 09/14/20 09/14/20 09/14/20 03:56 07:41 11:57 Temperature 97.9 F 98.0 F Pulse Rate 94 H 98 H 68 Respiratory 16 20 16 Rate Blood Pressure 151/91 166/94 150/77 O2 Sat by Pulse 100 100 92 Oximetry - Lab 09/12/20 04:43 09/14/20 04:34 Most recent lab results Calcium 8.5 mg/dL (8.4-10.2) 09/14/20 04:34 Magnesium 1.50 mg/dL (1.7-2.3) L 09/09/20 04:59 Medications & Allergies - Medications Allergies/Adverse Reactions: Allergies No Known Allergies Allergy (Unverified 09/07/20 14:22) Home Medications: Home Medications Medication Instructions Recorded Confirmed Last Taken Type Unobtainable 09/10/20 09/10/20 Unknown History Active Medications: Generic Name Dose Route Start Last Admin Trade Name Freq PRN Reason Stop Dose Admin Acetaminophen 650 mg 09/08/20 11:56 Acetaminophen 325 Mg Tab PO Q6H PRN Pain, Mild (1-3) Dextrose 50 ml 09/07/20 18:15 09/09/20 22:20 Dextrose 50% In Water (25gm) 50 Ml Syringe IV 50 ml Q30MIN PRN Administration Hypoglycemia Protocol Famotidine 20 mg 09/07/20 22:00 09/14/20 09:21 Famotidine 20 Mg Tab PO 20 mg BID CLARICE Administration Heparin Sodium (Porcine) 5,000 unit 09/07/20 22:00 09/14/20 13:51 Heparin 5,000 Unit/1 Ml Vial SUB-Q 5,000 unit Q8HR CLARICE Administration Insulin Human Lispro 0 unit 09/07/20 22:00 09/14/20 13:52 Insulin Lispro 100 Unit/Ml SUB-Q Not Given ACHS CLARICE Protocol Methylprednisolone Sodium Succinate 80 mg 09/10/20 17:00 09/14/20 05:36 Methylprednisolone Sod Succinate 125 Mg/2 Ml Inj IV 80 mg Q12H CLARICE Administration Multivitamins 1 each 09/08/20 10:00 09/14/20 09:21 Multivitamins ,Therapeutic Tab PO 1 each QDAY CLARICE Administration Ondansetron HCl 4 mg 09/08/20 11:57 Ondansetron 4 Mg/2 Ml Inj IV Q8H PRN Nausea And Vomiting Oxycodone/Acetaminophen 1 tab 09/08/20 12:03 09/13/20 22:24 Oxycodone /Acetaminophen 5-325mg Tab PO 1 tab Q6H PRN Administration Pain, Moderate (4-6)
[2020-09-14] MEDS: oxyCODONE /ACETAMINOPHEN 5-325MG TAB PO PRN (17:30)
[2020-09-14] MEDS: SODIUM CHLORIDE 1 GM TAB PO SCH (22:06)
[2020-09-15 05:37] LABS: Basophils % (Auto) 0.1 % (0.0-1.8); Eosinophils % (Auto) 0.1 % (0.0-4.3); Hemoglobin 8.9 gm/dl (11.8-15.2); Lymphocytes # (Auto) 2.2 K/mm3 (1.2-5.4); Lymphocytes % (Auto) 15.6 % (13.4-35.0); Mean Corpuscular HGB Conc 34 % (32-34); Mean Corpuscular Volume 86 fl (84-94); Monocytes % (Auto) 7.1 % (0.0-7.3); Platelet Count 246 K/mm3 (140-440); Red Blood Count 3.03 M/mm3 (3.65-5.03); Red Cell Distribution Width 14.4 % (13.2-15.2)
[2020-09-15 05:52] LABS: Alanine Aminotransferase 25 units/L (7-56); Albumin 3.1 g/dL (3.9-5); BUN/Creatinine Ratio 23; Blood Urea Nitrogen 18 mg/dL (9-20); Calcium 7.9 mg/dL (8.4-10.2); Hemolysis Index 0
[2020-09-15] MEDS: HEPARIN 5,000 UNIT/1 ML VIAL SUB-Q SCH (05:52)
[2020-09-15] MEDS: methylPREDNISolone Sod Succinate 125 MG/2 ML INJ IV SCH (05:52)
[2020-09-15] MEDS: oxyCODONE /ACETAMINOPHEN 5-325MG TAB PO PRN ×2 (05:57→22:13)
[2020-09-15] MEDS: INSULIN LISPRO 100 UNIT/ML SUB-Q SCH ×4 (08:42→22:07)
[2020-09-15] MEDS: MULTIVITAMINS ,THERAPEUTIC TAB PO SCH (09:00)
[2020-09-15] MEDS: FAMOTIDINE 20 MG TAB PO SCH ×2 (09:00→22:08)
[2020-09-15] MEDS: SODIUM CHLORIDE 1 GM TAB PO SCH ×2 (09:02→22:09)
--- NOTE | 2020-09-15 09:07 | Progress Note ---
Assessment and Plan Assessment and plan: Pneumonia Pneumonia pathway. Rocephin 1 g IV daily. Zithromax 500 mg IV daily. DuoNeb by nebulizer every 4 hours as needed. Chronic hypertension Home BP meds Toxic metabolic encephalopathy. 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 Continue calcitonin every 12 hours with a goal of less than 10.5. Check SPEP and RAMYA level. PTH decreased. Diabetes 1800 kcal ADA diet, sliding scale Accu-Chek before meals and at bedtime moderate dose covering. Hypokalemia Replete as needed. Hypomagnesemia Replete as needed. Left hip pain DVT prophylaxis Patient is on heparin 5000 units subcu every 8 hours for DVT prophylaxis. 09/08/2020 -Patient is on IV antibiotics for pneumonia -Electrolyte replacement protocol, BMP from this morning is pending -PT OT evaluation -CT head is negative for acute intracranial findings -Confusion is likely due to metabolic encephalopathy -Blood sugar is within normal limits -Nephrology is consulted for the management of hypercalcemia -ID is consulted for the management of pneumonia, suspected Covid and Covid test is pending 09/09/2020. Continue calcitonin and follow-up calcium levels. Nephrology following. Follow-up SPEP and RAMYA levels. Continue antibiotics for pneumonia. Check CT of the chest, abdomen and pelvis given hypercalcemia. Check PTH related protein. Consider consultation with oncology. 09/10/2020. Chest CT revealed Large infiltrating mass in the anterior mediastinum with bony destruction of the manubrium, sternum. Oncology consultation pending. Patient with hypercalcemia of malignancy treated with calcitonin per nephrology. Antibiotics discontinued by infectious disease. Pulmonary consultation 09/11/2020. I discussed the case with CT surgery (Dr. Bush) who will evaluate the patient for possible mediastinoscopy. Pulmonary, nephrology and oncology following. Continue calcitonin per nephrology recommendations. 09/12/2020. Patient for tissue biopsy per radiology. I discussed the case again with Dr. Bush who believes that patient is not a surgical candidate given the extensive disease/malignancy. I discussed the case with the son (ESTHER Granger number is [phone]) likely poor/grim diagnosis but await pathology of mass. Considerations for palliative/hospice care. 09/13/2020. 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 Surgery recommends tissue diagnosis with CT-guided biopsy. Radiology consulted 09/14/2020. Patient went down yesterday for CT-guided biopsy but refused. I discussed with the patient importance of the test and he states that he will do it on Wednesday. Consider hospice evaluation. Hyponatremia may be secondary to SIADH in the setting of malignancy. Follow-up BMP in a.m. Continue strict I/Os. Nephrology following. Continue pamidronate and steroids per oncology. SPEP and RAMYA normal. 09/15/2020. Hyponatremia has improved. Continue salt tabs and fluid restriction. 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 SPEP and RAMYA normal. Continue pamidronate and steroids per oncology. CT-guided biopsy planned for Wednesday at 8 AM. If patient refuses again, patient will be discharged home. Patient needs hospice evaluation. History Interval history: No new issues overnight. Hospitalist Physical - Constitutional Vitals: Temp Pulse Resp BP Pulse Ox 98.9 F 91 H 20 127/68 97 09/15/20 08:39 09/15/20 07:55 09/15/20 07:55 09/15/20 07:55 09/15/20 07:55 General appearance: Present: no acute distress, well-nourished - EENT Eyes: Present: PERRL, EOM intact ENT: hearing intact, clear oral mucosa, dentition normal - Neck Neck: Present: supple, normal ROM - Respiratory Respiratory effort: normal Respiratory: bilateral: CTA - Cardiovascular Rhythm: regular Heart Sounds: Present: S1 & S2. Absent: gallop, rub - Extremities Extremities: no ischemia, No edema, Full ROM - Abdominal General gastrointestinal: soft, non-tender, non-distended, normal bowel sounds - Integumentary Integumentary: Present: clear, warm, dry - Neurologic Neurologic: CNII-XII intact, moves all extremities HEART Score - HEART Score Troponin: Troponin T 0.014 ng/mL (0.00-0.029) 09/07/20 15:28 Results - Labs CBC & Chem 7: 09/15/20 05:00 09/15/20 05:00 Labs: Laboratory Last Values WBC 14.3 K/mm3 (4.5-11.0) H 09/15/20 05:00 RBC 3.03 M/mm3 (3.65-5.03) L 09/15/20 05:00 Hgb 8.9 gm/dl (11.8-15.2) L 09/15/20 05:00 Hct 26.0 % (35.5-45.6) L 09/15/20 05:00 MCV 86 fl (84-94) 09/15/20 05:00 MCH 29 pg (28-32) 09/15/20 05:00 MCHC 34 % (32-34) 09/15/20 05:00 RDW 14.4 % (13.2-15.2) 09/15/20 05:00 Plt Count 246 K/mm3 (140-440) 09/15/20 05:00 Lymph % (Auto) 15.6 % (13.4-35.0) 09/15/20 05:00 [place] % (Auto) 7.1 % (0.0-7.3) 09/15/20 05:00 Eos % (Auto) 0.1 % (0.0-4.3) 09/15/20 05:00 Baso % (Auto) 0.1 % (0.0-1.8) 09/15/20 05:00 Lymph # (Auto) 2.2 K/mm3 (1.2-5.4) 09/15/20 05:00 [place] # (Auto) 1.0 K/mm3 (0.0-0.8) H 09/15/20 05:00 Eos # (Auto) 0.0 K/mm3 (0.0-0.4) 09/15/20 05:00 Baso # (Auto) 0.0 K/mm3 (0.0-0.1) 09/15/20 05:00 Seg Neutrophils % 77.1 % (40.0-70.0) H 09/15/20 05:00 Seg Neutrophils # 11.0 K/mm3 (1.8-7.7) H 09/15/20 05:00 PT 12.6 Sec. (12.2-14.9) 09/13/20 13:17 INR 0.96 (0.87-1.13) 09/13/20 13:17 APTT 29.6 Sec. (24.2-36.6) 09/13/20 13:17 D-Dimer 472.35 ng/mlDDU (0-234) H 09/07/20 17:01 Sodium 132 mmol/L (137-145) L 09/15/20 05:00 Potassium 3.2 mmol/L (3.6-5.0) L 09/15/20 05:00 Chloride 95.1 mmol/L (98-107) L 09/15/20 05:00 Carbon Dioxide 28 mmol/L (22-30) 09/15/20 05:00 Anion Gap 12 mmol/L 09/15/20 05:00 BUN 18 mg/dL (9-20) 09/15/20 05:00 Creatinine 0.8 mg/dL (0.8-1.3) 09/15/20 05:00 Estimated GFR > 60 ml/min 09/15/20 05:00 BUN/Creatinine Ratio 23 % 09/15/20 05:00 Glucose 253 mg/dL (75-100) H 09/15/20 05:00 POC Glucose 283 mg/dL (70-105) H 09/14/20 19:52 Uric Acid 4.5 mg/dL (3.5-7.6) 09/13/20 05:06 Calcium 7.9 mg/dL (8.4-10.2) L 09/15/20 05:00 Magnesium 1.50 mg/dL (1.7-2.3) L 09/09/20 04:59 Ferritin 389.0 ng/mL (30.0-300.0) H 09/07/20 17:01 Total Bilirubin < 0.20 mg/dL (0.1-1.2) 09/15/20 05:00 AST 29 units/L (5-40) 09/15/20 05:00 ALT 25 units/L (7-56) 09/15/20 05:00 Alkaline Phosphatase 113 units/L (35-129) 09/15/20 05:00 Lactate Dehydrogenase 335 units/L (91-180) H 09/07/20 17:01 Total Creatine Kinase 146 units/L (55-170) 09/07/20 15:28 Troponin T 0.014 ng/mL (0.00-0.029) 09/07/20 15:28 C-Reactive Protein 1.60 mg/dL (0.00-1.30) H 09/07/20 17:01 Serum Total Protein 6.4 g/dL (6.1-8.1) 09/08/20 09:54 Total Protein 6.3 g/dL (6.3-8.2) 09/15/20 05:00 Albumin 3.1 g/dL (3.9-5) L 09/15/20 05:00 Albumin/Globulin Ratio 1.0 % 09/15/20 05:00 Eafwu-3-Zazyhceiy 0.5 g/dL (0.2-0.3) H 09/08/20 09:54 Dlcqn-9-Bjkvygcqc 0.9 g/dL (0.5-0.9) 09/08/20 09:54 Beta Globulins 0.5 g/dL (0.2-0.5) 09/08/20 09:54 Gamma Globulins 1.3 g/dL (0.8-1.7) 09/08/20 09:54 Abnorm Protein Band 1 see below 09/08/20 09:54 PEP Interpretation see below H 09/08/20 09:54 Angiotensin Convert Enz 22 U/L (9-67) 09/08/20 09:54 Carcinoembryonic Ag 3.1 ng/mL (0.0-2.4) H 09/11/20 05:18 Procalcitonin < 0.05 ng/mL (<0.15) 09/07/20 17:01 TSH 2.730 mlU/mL (0.270-4.200) 09/07/20 15:28 Free T4 1.34 ng/dL (0.76-1.46) 09/07/20 15:28 PTH Intact 5.89 pg/mL (15-65) L 09/08/20 09:54 Urine Color Straw (Yellow) 09/07/20 21:05 Urine Turbidity Clear (Clear) 09/07/20 21:05 Urine pH 7.0 (5.0-7.0) 09/07/20 21:05 Ur Specific [place] 1.005 (1.003-1.030) 09/07/20 21:05 Urine Protein <15 mg/dl mg/dL (Negative) 09/07/20 21:05 Urine Glucose (UA) Neg mg/dL (Negative) 09/07/20 21:05 Urine Ketones Neg mg/dL (Negative) 09/07/20 21:05 Urine Blood Neg (Negative) 09/07/20 21:05 Urine Nitrite Neg (Negative) 09/07/20 21:05 Urine Bilirubin Neg (Negative) 09/07/20 21:05 Urine Urobilinogen < 2.0 mg/dL (<2.0) 09/07/20 21:05 Ur Leukocyte Esterase Neg (Negative) 09/07/20 21:05 Urine WBC (Auto) 1.0 /HPF (0.0-6.0) 09/07/20 21:05 Urine RBC (Auto) 1.0 /HPF (0.0-6.0) 09/07/20 21:05 Urine Bacteria (Auto) 1+ /HPF (Negative) 09/07/20 21:05 Urine Opiates Screen Negative 09/07/20 21:05 Urine Methadone Screen Negative 09/07/20 21:05 Ur Barbiturates Screen Negative 09/07/20 21:05 Ur Phencyclidine Scrn Negative 09/07/20 21:05 Ur Amphetamines Screen Negative 09/07/20 21:05 U Benzodiazepines Scrn Negative 09/07/20 21:05 Urine Cocaine Screen Negative 09/07/20 21:05 U Marijuana (THC) Screen Negative 09/07/20 21:05 Drugs of Abuse Note Disclamer 09/07/20 21:05 Plasma/Serum Alcohol < 0.01 % (0-0.07) 09/07/20 15:28 Coronavirus (PCR) Negative (Negative) 09/08/20 10:06 Monique/IV: Voiding Method Toilet Active Medications - Current Medications Current Medications: Generic Name Dose Route Start Last Admin Trade Name Freq PRN Reason Stop Dose Admin Acetaminophen 650 mg 09/08/20 11:56 Acetaminophen 325 Mg Tab PO Q6H PRN Pain, Mild (1-3) Dextrose 50 ml 09/07/20 18:15 09/09/20 22:20 Dextrose 50% In Water (25gm) 50 Ml Syringe IV 50 ml Q30MIN PRN Administration Hypoglycemia Protocol Famotidine 20 mg 09/07/20 22:00 09/15/20 09:00 Famotidine 20 Mg Tab PO 20 mg BID CLARICE Administration Heparin Sodium (Porcine) 5,000 unit 09/07/20 22:00 09/15/20 05:52 Heparin 5,000 Unit/1 Ml Vial SUB-Q 5,000 unit Q8HR CLARICE Administration Insulin Human Lispro 0 unit 09/07/20 22:00 09/15/20 08:42 Insulin Lispro 100 Unit/Ml SUB-Q 2 unit ACHS CLARICE Administration Protocol Methylprednisolone Sodium Succinate 80 mg 09/10/20 17:00 09/15/20 05:52 Methylprednisolone Sod Succinate 125 Mg/2 Ml Inj IV 80 mg Q12H CLARICE Administration Multivitamins 1 each 09/08/20 10:00 09/15/20 09:00 Multivitamins ,Therapeutic Tab PO 1 each QDAY CLARICE Administration Ondansetron HCl 4 mg 09/08/20 11:57 Ondansetron 4 Mg/2 Ml Inj IV Q8H PRN Nausea And Vomiting Oxycodone/Acetaminophen 1 tab 09/08/20 12:03 09/15/20 05:57 Oxycodone /Acetaminophen 5-325mg Tab PO 1 tab Q6H PRN Administration Pain, Moderate (4-6) Sodium Chloride 1 gm 09/14/20 22:00 09/14/20 22:06 Sodium Chloride 1 Gm Tab PO 1 gm BID CLARICE Administration Nutrition/Malnutrition Assess - Dietary Evaluation Nutrition/Malnutrition Findings: Nutrition Notes Start: 09/08/20 08:59 Freq: Status: Active Protocol: Document 09/12/20 10:34 CW (Rec: 09/12/20 10:49 CW [id number]) Nutrition Notes Initial or Follow up Reassessment Current Diagnosis Diabetes,Hypertension Other Pertinent Diagnosis PNA, Confusion Current Diet Mechanical soft Labs/Tests Na 130 BG 164 BUN 25 Pertinent Medications Solumedrol Humalog Height 5 ft 6 in Weight 55.6 kg [place] Body Weight (kg) 64.54 BMI 19.8 Weight change and time frame weight change noted Weight Status Underweight Subjective/Other Information F/U for PO intakes and ONS tolerance. Some weight fluctuation noted. Weight fluctuates around +/-3 kg range. Not concerned for weight change at this time. Pt has a good appetite and has requested snacks. Pt is meeting needs but will continue ONS for weight gain to healthy BMI for older adult . No reports of N/V/D/C. pt states not receving Glucerna. Will follow up with kitchen. Percent of energy/protein needs met: 81%/100% Burn Absent Trauma Absent GI Symptoms None Difficulty In Chewing Food Allergy No Cultural/Ethnic/[place] Belief [place] foods Current % PO Good (75-100%) Minimum of two criteria No Reduced [employer] Coupler Strength Measurably Reduced (severe) #2 Nutrition Diagnosis Inadequate oral intake As Evidenced by Signs and Symptoms PO intake of 75% of meals Diagnosis Progress(for reassessment Improved documentation) Is patient on ventilator? No Is Patient Ambulatory and/or Out of Bed Yes REE-([place]-ambulatory/OOB) [ 1668.875 [id number]] Kcal/Kg value to use for calculation 34 Approximate Energy Requirements Using 1890 kcal/Kg Calculation Used for Recommendations Kcal/kg Additional Notes Protein needs 56-67g (1-1.2g/ kg) Fluid needs are 1ml/kcal Nutrition Intervention Change Diet Order: Continue Mechanical Soft Diet Add Supplement/Snack (indicate name/kcal Glucerna BID /protein ) Provides kCal: 440 Provides Protein (gm) 20 Goal #1 Meet at least 80% of kcal and protein needs Anticipated Discharge Needs: Mechanical soft consistent carbohydrates and ONS PRN Follow-Up By: 09/16/20 Additional Comments F/U for PO intakes and ONS
--- NOTE | 2020-09-15 09:43 | Hem/Onc Progress Note ---
Subjective Interval history: heme/onc data review 65yo [place] man with recent weakness, falling, eval for L hip pain since admission found to have a large anterior mediastinal mass and hypercalcemia 10-11 s/p pamidronate, calcitonin, steroid pulse DATA REVIEWED BELOW Chest CT: large anterior mediatinal mass with sternal bone invasion CEA low 3.1 IMP: aggressive-appearing mediastinal mass, likely lymphoma if it's lymphoma, then he may benefit from urgent chemo and radiation recent hypercalcemia attrib to malignancy-oimproved after pamidronate and calcitonin REC: biopsy mediastinal mass los consider transfer to tertiary care hospital with or without biopsy steroid taper Active Medications Heparin Sodium (Porcine) (Heparin 5,000 Unit/1 Ml Vial) 5,000 unit SUB-Q Q8HR CLARICE Last Admin: 09/15/20 05:52 Dose: 5,000 unit Documented by: Insulin Human Lispro (Insulin Lispro 100 Unit/Ml) 0 unit SUB-Q ACHS CLARICE; Protocol Last Admin: 09/15/20 08:42 Dose: 2 unit Documented by: Methylprednisolone Sodium Succinate (Methylprednisolone Sod Succinate 125 Mg/2 Ml Inj) 80 mg IV Q12H CLARICE Last Admin: 09/15/20 05:52 Dose: 80 mg Documented by: Ondansetron HCl (Ondansetron 4 Mg/2 Ml Inj) 4 mg IV Q8H PRN PRN Reason: Nausea And Vomiting Oxycodone/Acetaminophen (Oxycodone /Acetaminophen 5-325mg Tab) 1 tab PO Q6H PRN PRN Reason: Pain, Moderate (4-6) Last Admin: 09/15/20 05:57 Dose: 1 tab Documented by: Vital Signs Temp Pulse Resp BP Pulse Ox 98.9 F 91 H 20 127/68 97 09/15/20 08:39 09/15/20 07:55 09/15/20 07:55 09/15/20 07:55 09/15/20 07:55 Temperature -Last 24 Hours Temperature 98.9 F Temperature 98.7 F Temperature 98.7 F Laboratory Last Values WBC 14.3 K/mm3 (4.5-11.0) H 09/15/20 05:00 Hgb 8.9 gm/dl (11.8-15.2) L 09/15/20 05:00 Hct 26.0 % (35.5-45.6) L 09/15/20 05:00 Plt Count 246 K/mm3 (140-440) 09/15/20 05:00 Creatinine 0.8 mg/dL (0.8-1.3) 09/15/20 05:00 Lactate Dehydrogenase 335 units/L (91-180) H 09/07/20 17:01 Carcinoembryonic Ag 3.1 ng/mL (0.0-2.4) H 09/11/20 05:18 Coronavirus (PCR) Negative (Negative) 09/08/20 10:06 Objective - Constitutional Vitals: Last Vital Signs Temp 98.9 F 09/15/20 08:39 Pulse 91 H 09/15/20 07:55 Resp 20 09/15/20 07:55 BP 127/68 09/15/20 07:55 Pulse Ox 97 09/15/20 07:55 - Labs Lab Results: Laboratory Results - last 24 hr 09/14/20 09/14/20 09/14/20 07:39 11:24 16:09 WBC RBC Hgb Hct MCV MCH MCHC RDW Plt Count Lymph % (Auto) [place] % (Auto) Eos % (Auto) Baso % (Auto) Lymph # (Auto) [place] # (Auto) Eos # (Auto) Baso # (Auto) Seg Neutrophils % Seg Neutrophils # Sodium Potassium Chloride Carbon Dioxide Anion Gap BUN Creatinine Estimated GFR BUN/Creatinine Ratio Glucose POC Glucose 240 H 234 H 360 H Calcium Total Bilirubin AST ALT Alkaline Phosphatase Total Protein Albumin Albumin/Globulin Ratio 09/14/20 09/15/20 09/15/20 19:52 05:00 05:00 WBC 14.3 H RBC 3.03 L Hgb 8.9 L Hct 26.0 L MCV 86 MCH 29 MCHC 34 RDW 14.4 Plt Count 246 Lymph % (Auto) 15.6 [place] % (Auto) 7.1 Eos % (Auto) 0.1 Baso % (Auto) 0.1 Lymph # (Auto) 2.2 [place] # (Auto) 1.0 H Eos # (Auto) 0.0 Baso # (Auto) 0.0 Seg Neutrophils % 77.1 H Seg Neutrophils # 11.0 H Sodium 132 L Potassium 3.2 L Chloride 95.1 L Carbon Dioxide 28 Anion Gap 12 BUN 18 Creatinine 0.8 Estimated GFR > 60 BUN/Creatinine Ratio 23 Glucose 253 H POC Glucose 283 H Calcium 7.9 L Total Bilirubin < 0.20 AST 29 ALT 25 Alkaline Phosphatase 113 Total Protein 6.3 Albumin 3.1 L Albumin/Globulin Ratio 1.0 09/15/20 07:55 WBC RBC Hgb Hct MCV MCH MCHC RDW Plt Count Lymph % (Auto) [place] % (Auto) Eos % (Auto) Baso % (Auto) Lymph # (Auto) [place] # (Auto) Eos # (Auto) Baso # (Auto) Seg Neutrophils % Seg Neutrophils # Sodium Potassium Chloride Carbon Dioxide Anion Gap BUN Creatinine Estimated GFR BUN/Creatinine Ratio Glucose POC Glucose 155 H Calcium Total Bilirubin AST ALT Alkaline Phosphatase Total Protein Albumin Albumin/Globulin Ratio Medications & Allergies - Medications Allergies/Adverse Reactions: Allergies No Known Allergies Allergy (Unverified 09/07/20 14:22) Home Medications: Home Medications Medication Instructions Recorded Confirmed Last Taken Type Unobtainable 09/10/20 09/10/20 Unknown History Active Medications: Generic Name Dose Route Start Last Admin Trade Name Freq PRN Reason Stop Dose Admin Acetaminophen 650 mg 09/08/20 11:56 Acetaminophen 325 Mg Tab PO Q6H PRN Pain, Mild (1-3) Dextrose 50 ml 09/07/20 18:15 09/09/20 22:20 Dextrose 50% In Water (25gm) 50 Ml Syringe IV 50 ml Q30MIN PRN Administration Hypoglycemia Protocol Famotidine 20 mg 09/07/20 22:00 09/15/20 09:00 Famotidine 20 Mg Tab PO 20 mg BID CLARICE Administration Heparin Sodium (Porcine) 5,000 unit 09/07/20 22:00 09/15/20 05:52 Heparin 5,000 Unit/1 Ml Vial SUB-Q 5,000 unit Q8HR CLARICE Administration Insulin Human Lispro 0 unit 09/07/20 22:00 09/15/20 08:42 Insulin Lispro 100 Unit/Ml SUB-Q 2 unit ACHS CLARICE Administration Protocol Methylprednisolone Sodium Succinate 80 mg 09/10/20 17:00 09/15/20 05:52 Methylprednisolone Sod Succinate 125 Mg/2 Ml Inj IV 80 mg Q12H CLARICE Administration Multivitamins 1 each 09/08/20 10:00 09/15/20 09:00 Multivitamins ,Therapeutic Tab PO 1 each QDAY CLARICE Administration Ondansetron HCl 4 mg 09/08/20 11:57 Ondansetron 4 Mg/2 Ml Inj IV Q8H PRN Nausea And Vomiting Oxycodone/Acetaminophen 1 tab 09/08/20 12:03 09/15/20 05:57 Oxycodone /Acetaminophen 5-325mg Tab PO 1 tab Q6H PRN Administration Pain, Moderate (4-6) Sodium Chloride 1 gm 09/14/20 22:00 09/15/20 09:02 Sodium Chloride 1 Gm Tab PO 1 gm BID CLARICE Administration
[2020-09-15] MEDS: methylPREDNISolone Sod Succinate 40 MG/1 ML INJ IV SCH (10:02)
[2020-09-15] MEDS: ENOXAPARIN 40 MG/0.4 ML INJ SUB-Q SCH (10:02)
--- NOTE | 2020-09-15 13:10 | Progress Note ---
Assessment and Plan Impression: * hypercalcemia * hypokalemia * hypomagnesemia * Hyponatremia * PNA * failure to thrive * Type 2 DM * HTN * weight loss * volume depletion * anterior mediastinal mass Plan: * Continue to hold IVF, normal saline as calcium improved * Sodium 130->126->132, initially thought related to hypotonic fluids, but has worsened with normal saline as well. May have SIADH in setting of malignancy, encourage balanced po/solute intake, ordered urine osm, na which are pending. Started salt tabs for presumptive SIADH 09/14, continue for now with mild free water restriction * Holding calcitonin * Steroids per oncology * follow up vitamin D panel. PTH appropriately suppressed. SPEP WNL. RAMYA WNL * replete k and mag prn * strict i/os and daily lytes * Agree with malignancy workup, CT abd/pelvis/chest reviewed. Appreciate pulm, onc input; agree mediastinal biopsy is crucial, ok for contrast to be used if needed from renal perspective. Plan for CT guided biopsy per surgery, patient refused initially, consideration of hospice if he continues to refuse Subjective Date of service: 09/15/20 Principal diagnosis: hypercalcemia, weakness Interval history: No acute changes, resting this AM Objective - Exam Narrative Exam: General: No acute distress, thin and chronically ill appearing Head: Atraumatic Eyes: normal appearance ENT: dry mucous membranes Neck: Normal appearance Chest: Clear to auscultation bilaterally CV: Regular rate and rhythm Abdomen: Soft, normal bowel sounds, nontender, nondistended, no rebound or guarding Back: Normal inspection Extremity: Normal inspection, full range of motion Neuro: Alert, Oriented x 3, speech clear, no gross motor sensory deficit Psych: Appropriate behavior Skin: Discoid hyperpigmented areas to bilateral upper extremities - Vital Signs Vital signs: Vital Signs - 12hr 09/15/20 09/15/20 09/15/20 05:18 05:57 07:55 Temperature 98.7 F Pulse Rate 95 H 91 H Respiratory 18 18 20 Rate Blood Pressure 138/83 127/68 O2 Sat by Pulse 98 97 Oximetry 09/15/20 09/15/20 09/15/20 08:39 09:51 11:40 Temperature 98.9 F 98.5 F Pulse Rate 95 H Respiratory 18 20 Rate Blood Pressure 138/81 O2 Sat by Pulse 100 Oximetry - Lab 09/15/20 05:00 09/15/20 05:00 Most recent lab results Calcium 7.9 mg/dL (8.4-10.2) L 09/15/20 05:00 Magnesium 1.50 mg/dL (1.7-2.3) L 09/09/20 04:59 Medications & Allergies - Medications Allergies/Adverse Reactions: Allergies No Known Allergies Allergy (Unverified 09/07/20 14:22) Home Medications: Home Medications Medication Instructions Recorded Confirmed Last Taken Type Unobtainable 09/10/20 09/10/20 Unknown History Active Medications: Generic Name Dose Route Start Last Admin Trade Name Freq PRN Reason Stop Dose Admin Acetaminophen 650 mg 09/08/20 11:56 Acetaminophen 325 Mg Tab PO Q6H PRN Pain, Mild (1-3) Dextrose 50 ml 09/07/20 18:15 09/09/20 22:20 Dextrose 50% In Water (25gm) 50 Ml Syringe IV 50 ml Q30MIN PRN Administration Hypoglycemia Protocol Enoxaparin Sodium 40 mg 09/15/20 10:00 09/15/20 10:02 Enoxaparin 40 Mg/0.4 Ml Inj SUB-Q 40 mg QDAY CLARICE Administration Protocol Famotidine 20 mg 09/07/20 22:00 09/15/20 09:00 Famotidine 20 Mg Tab PO 20 mg BID CLARICE Administration Insulin Human Lispro 0 unit 09/07/20 22:00 09/15/20 12:30 Insulin Lispro 100 Unit/Ml SUB-Q 3 unit ACHS CLARICE Administration Protocol Methylprednisolone Sodium Succinate 40 mg 09/15/20 10:00 09/15/20 10:02 Methylprednisolone Sod Succinate 40 Mg/1 Ml Inj IV 40 mg Q24HR CLARICE Administration Multivitamins 1 each 09/08/20 10:00 09/15/20 09:00 Multivitamins ,Therapeutic Tab PO 1 each QDAY CLARICE Administration Ondansetron HCl 4 mg 09/08/20 11:57 Ondansetron 4 Mg/2 Ml Inj IV Q8H PRN Nausea And Vomiting Oxycodone/Acetaminophen 1 tab 09/08/20 12:03 09/15/20 05:57 Oxycodone /Acetaminophen 5-325mg Tab PO 1 tab Q6H PRN Administration Pain, Moderate (4-6) Sodium Chloride 1 gm 09/14/20 22:00 09/15/20 09:02 Sodium Chloride 1 Gm Tab PO 1 gm BID CLARICE Administration
[2020-09-15] MEDS: BENZOCAINE/MENTHOL LOZENGE MM PRN ×2 (18:41→22:09)
[2020-09-16 06:15] LABS: Blood Urea Nitrogen 18 mg/dL (9-20); Calcium 7.6 mg/dL (8.4-10.2); Hemolysis Index 5
[2020-09-16 06:16] LABS: BUN/Creatinine Ratio 30
[2020-09-16] MEDS: INSULIN LISPRO 100 UNIT/ML SUB-Q SCH ×4 (07:30→23:09)
--- NOTE | 2020-09-16 09:10 | Progress Note ---
Assessment and Plan Impression: * Hypercalcemia --PTH appropriately suppressed. SPEP WNL. RAMYA WNL * Anterior mediastinal mass * Hypokalemia * Hypomagnesemia * Hyponatremia * PNA * Failure to thrive * Type 2 diabetes melliuts * Hypertension Plan: * Continue to NaCl tablets * Urine lytes are pending * Malignancy workup ordered. Pulmonary and oncology recommendations noted. Plan for CT guided biopsy per surgery if patient consents * Holding calcitonin * Steroids per oncology * Follow up vitamin D panel. * Replete lytes prn - KCL 40meq x 1 dose ordered * Strict I/O Subjective Date of service: 09/16/20 Principal diagnosis: hypercalcemia, weakness Interval history: Patient has no complaints today. Objective - Vital Signs Vital signs: Vital Signs - 12hr 09/16/20 09/16/20 00:19 05:23 Temperature 98.0 F 98.0 F Pulse Rate 103 H 97 H Respiratory 18 18 Rate Blood Pressure 134/84 130/72 O2 Sat by Pulse 98 99 Oximetry - General Appearance General appearance: well-developed, well-nourished EENT: ATNC Respiratory: Present: Clear to Ascultation Cardiology: regular, S1S2 Gastrointestinal: no tenderness, no distended Integumentary: warm and dry Neurologic: no focal deficit Musculoskeletal: other (no edema) Psychiatric: cooperative - Lab 09/15/20 05:00 09/16/20 05:36 Most recent lab results Calcium 7.6 mg/dL (8.4-10.2) L 09/16/20 05:36 Magnesium 1.50 mg/dL (1.7-2.3) L 09/09/20 04:59 Medications & Allergies - Medications Allergies/Adverse Reactions: Allergies No Known Allergies Allergy (Unverified 09/07/20 14:22) Home Medications: Home Medications Medication Instructions Recorded Confirmed Last Taken Type Unobtainable 09/10/20 09/10/20 Unknown History Active Medications: Generic Name Dose Route Start Last Admin Trade Name Freq PRN Reason Stop Dose Admin Acetaminophen 650 mg 09/08/20 11:56 Acetaminophen 325 Mg Tab PO Q6H PRN Pain, Mild (1-3) Benzocaine/Menthol 1 each 09/15/20 17:51 09/15/20 22:09 Benzocaine/Menthol Lozenge MM 1 each Q2HR PRN Administration Sore Throat Dextrose 50 ml 09/07/20 18:15 09/09/20 22:20 Dextrose 50% In Water (25gm) 50 Ml Syringe IV 50 ml Q30MIN PRN Administration Hypoglycemia Protocol Enoxaparin Sodium 40 mg 09/15/20 10:00 09/15/20 10:02 Enoxaparin 40 Mg/0.4 Ml Inj SUB-Q 40 mg QDAY CLARICE Administration Protocol Famotidine 20 mg 09/07/20 22:00 09/15/20 22:08 Famotidine 20 Mg Tab PO 20 mg BID CLARICE Administration Insulin Human Lispro 0 unit 09/07/20 22:00 09/15/20 22:07 Insulin Lispro 100 Unit/Ml SUB-Q 4 unit ACHS CLARICE Administration Protocol Methylprednisolone Sodium Succinate 40 mg 09/15/20 10:00 09/15/20 10:02 Methylprednisolone Sod Succinate 40 Mg/1 Ml Inj IV 40 mg Q24HR CLARICE Administration Multivitamins 1 each 09/08/20 10:00 09/15/20 09:00 Multivitamins ,Therapeutic Tab PO 1 each QDAY CLARICE Administration Ondansetron HCl 4 mg 09/08/20 11:57 Ondansetron 4 Mg/2 Ml Inj IV Q8H PRN Nausea And Vomiting Oxycodone/Acetaminophen 1 tab 09/08/20 12:03 09/15/20 22:13 Oxycodone /Acetaminophen 5-325mg Tab PO 1 tab Q6H PRN Administration Pain, Moderate (4-6) Sodium Chloride 1 gm 09/14/20 22:00 09/15/20 22:09 Sodium Chloride 1 Gm Tab PO 1 gm BID CLARICE Administration
[2020-09-16] MEDS: FAMOTIDINE 20 MG TAB PO SCH ×2 (10:00→23:09)
[2020-09-16] MEDS: SODIUM CHLORIDE 1 GM TAB PO SCH ×2 (10:00→23:09)
[2020-09-16] MEDS ORDERED: POTASSIUM CHLORIDE ER 20 MEQ TAB PO SCH (10:00)
--- NOTE | 2020-09-16 10:09 | Progress Note ---
Assessment and Plan Assessment and plan: Pneumonia Pneumonia pathway. Rocephin 1 g IV daily. Zithromax 500 mg IV daily. DuoNeb by nebulizer every 4 hours as needed. Chronic hypertension Home BP meds Toxic metabolic encephalopathy. 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 Continue calcitonin every 12 hours with a goal of less than 10.5. Check SPEP and RAMYA level. PTH decreased. Diabetes 1800 kcal ADA diet, sliding scale Accu-Chek before meals and at bedtime moderate dose covering. Hypokalemia Replete as needed. Hypomagnesemia Replete as needed. Left hip pain DVT prophylaxis Patient is on heparin 5000 units subcu every 8 hours for DVT prophylaxis. 09/08/2020 -Patient is on IV antibiotics for pneumonia -Electrolyte replacement protocol, BMP from this morning is pending -PT OT evaluation -CT head is negative for acute intracranial findings -Confusion is likely due to metabolic encephalopathy -Blood sugar is within normal limits -Nephrology is consulted for the management of hypercalcemia -ID is consulted for the management of pneumonia, suspected Covid and Covid test is pending 09/09/2020. Continue calcitonin and follow-up calcium levels. Nephrology following. Follow-up SPEP and RAMYA levels. Continue antibiotics for pneumonia. Check CT of the chest, abdomen and pelvis given hypercalcemia. Check PTH related protein. Consider consultation with oncology. 09/10/2020. Chest CT revealed Large infiltrating mass in the anterior mediastinum with bony destruction of the manubrium, sternum. Oncology consultation pending. Patient with hypercalcemia of malignancy treated with calcitonin per nephrology. Antibiotics discontinued by infectious disease. Pulmonary consultation 09/11/2020. I discussed the case with CT surgery (Dr. Bush) who will evaluate the patient for possible mediastinoscopy. Pulmonary, nephrology and oncology following. Continue calcitonin per nephrology recommendations. 09/12/2020. Patient for tissue biopsy per radiology. I discussed the case again with Dr. Bush who believes that patient is not a surgical candidate given the extensive disease/malignancy. I discussed the case with the son (ESTHER Granger number is [phone]) likely poor/grim diagnosis but await pathology of mass. Considerations for palliative/hospice care. 09/13/2020. 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 Surgery recommends tissue diagnosis with CT-guided biopsy. Radiology consulted 09/14/2020. Patient went down yesterday for CT-guided biopsy but refused. I discussed with the patient importance of the test and he states that he will do it on Wednesday. Consider hospice evaluation. Hyponatremia may be secondary to SIADH in the setting of malignancy. Follow-up BMP in a.m. Continue strict I/Os. Nephrology following. Continue pamidronate and steroids per oncology. SPEP and RAMYA normal. 09/15/2020. Hyponatremia has improved. Continue salt tabs and fluid restriction. 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 SPEP and RAMYA normal. Continue pamidronate and steroids per oncology. CT-guided biopsy planned for Wednesday at 8 AM. If patient refuses again, patient will be discharged home. Patient needs hospice evaluation. 09/16/2020. Hyponatremia is stable. Continue salt tabs and fluid restriction. 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 SPEP and RAMYA normal. Continue pamidronate and steroids per oncology. CT-guided biopsy of mediastinal mass planned for today. Pt. will likely needs hospice evaluation. History Interval history: No new issues overnight. Hospitalist Physical - Constitutional Vitals: Temp Pulse Resp BP Pulse Ox 98.0 F 97 H 18 130/72 99 09/16/20 05:23 09/16/20 05:23 09/16/20 05:23 09/16/20 05:23 09/16/20 05:23 General appearance: Present: no acute distress, well-nourished - EENT Eyes: Present: PERRL, EOM intact ENT: hearing intact, clear oral mucosa, dentition normal - Neck Neck: Present: supple, normal ROM - Respiratory Respiratory effort: normal Respiratory: bilateral: CTA - Cardiovascular Rhythm: regular Heart Sounds: Present: S1 & S2. Absent: gallop, rub - Extremities Extremities: no ischemia, No edema, Full ROM - Abdominal General gastrointestinal: soft, non-tender, non-distended, normal bowel sounds - Integumentary Integumentary: Present: clear, warm, dry - Neurologic Neurologic: CNII-XII intact, moves all extremities HEART Score - HEART Score Troponin: Troponin T 0.014 ng/mL (0.00-0.029) 09/07/20 15:28 Results - Labs CBC & Chem 7: 09/15/20 05:00 09/16/20 05:36 Labs: Laboratory Last Values WBC 14.3 K/mm3 (4.5-11.0) H 09/15/20 05:00 RBC 3.03 M/mm3 (3.65-5.03) L 09/15/20 05:00 Hgb 8.9 gm/dl (11.8-15.2) L 09/15/20 05:00 Hct 26.0 % (35.5-45.6) L 09/15/20 05:00 MCV 86 fl (84-94) 09/15/20 05:00 MCH 29 pg (28-32) 09/15/20 05:00 MCHC 34 % (32-34) 09/15/20 05:00 RDW 14.4 % (13.2-15.2) 09/15/20 05:00 Plt Count 246 K/mm3 (140-440) 09/15/20 05:00 Lymph % (Auto) 15.6 % (13.4-35.0) 09/15/20 05:00 [place] % (Auto) 7.1 % (0.0-7.3) 09/15/20 05:00 Eos % (Auto) 0.1 % (0.0-4.3) 09/15/20 05:00 Baso % (Auto) 0.1 % (0.0-1.8) 09/15/20 05:00 Lymph # (Auto) 2.2 K/mm3 (1.2-5.4) 09/15/20 05:00 [place] # (Auto) 1.0 K/mm3 (0.0-0.8) H 09/15/20 05:00 Eos # (Auto) 0.0 K/mm3 (0.0-0.4) 09/15/20 05:00 Baso # (Auto) 0.0 K/mm3 (0.0-0.1) 09/15/20 05:00 Seg Neutrophils % 77.1 % (40.0-70.0) H 09/15/20 05:00 Seg Neutrophils # 11.0 K/mm3 (1.8-7.7) H 09/15/20 05:00 PT 12.6 Sec. (12.2-14.9) 09/13/20 13:17 INR 0.96 (0.87-1.13) 09/13/20 13:17 APTT 29.6 Sec. (24.2-36.6) 09/13/20 13:17 D-Dimer 472.35 ng/mlDDU (0-234) H 09/07/20 17:01 Sodium 131 mmol/L (137-145) L 09/16/20 05:36 Potassium 3.4 mmol/L (3.6-5.0) L 09/16/20 05:36 Chloride 95.5 mmol/L (98-107) L 09/16/20 05:36 Carbon Dioxide 29 mmol/L (22-30) 09/16/20 05:36 Anion Gap 10 mmol/L 09/16/20 05:36 BUN 18 mg/dL (9-20) 09/16/20 05:36 Creatinine 0.6 mg/dL (0.8-1.3) L 09/16/20 05:36 Estimated GFR > 60 ml/min 09/16/20 05:36 BUN/Creatinine Ratio 30 % 09/16/20 05:36 Glucose 199 mg/dL (75-100) H 09/16/20 05:36 POC Glucose 270 mg/dL (70-105) H 09/15/20 21:30 Uric Acid 4.5 mg/dL (3.5-7.6) 09/13/20 05:06 Calcium 7.6 mg/dL (8.4-10.2) L 09/16/20 05:36 Magnesium 1.50 mg/dL (1.7-2.3) L 09/09/20 04:59 Ferritin 389.0 ng/mL (30.0-300.0) H 09/07/20 17:01 Total Bilirubin < 0.20 mg/dL (0.1-1.2) 09/15/20 05:00 AST 29 units/L (5-40) 09/15/20 05:00 ALT 25 units/L (7-56) 09/15/20 05:00 Alkaline Phosphatase 113 units/L (35-129) 09/15/20 05:00 Lactate Dehydrogenase 335 units/L (91-180) H 09/07/20 17:01 Total Creatine Kinase 146 units/L (55-170) 09/07/20 15:28 Troponin T 0.014 ng/mL (0.00-0.029) 09/07/20 15:28 C-Reactive Protein 1.60 mg/dL (0.00-1.30) H 09/07/20 17:01 Serum Total Protein 6.4 g/dL (6.1-8.1) 09/08/20 09:54 Total Protein 6.3 g/dL (6.3-8.2) 09/15/20 05:00 Albumin 3.1 g/dL (3.9-5) L 09/15/20 05:00 Albumin/Globulin Ratio 1.0 % 09/15/20 05:00 Bdcey-8-Wmyqpwaxk 0.5 g/dL (0.2-0.3) H 09/08/20 09:54 Ucfin-9-Todginmkb 0.9 g/dL (0.5-0.9) 09/08/20 09:54 Beta Globulins 0.5 g/dL (0.2-0.5) 09/08/20 09:54 Gamma Globulins 1.3 g/dL (0.8-1.7) 09/08/20 09:54 Abnorm Protein Band 1 see below 09/08/20 09:54 PEP Interpretation see below H 09/08/20 09:54 Angiotensin Convert Enz 22 U/L (9-67) 09/08/20 09:54 Carcinoembryonic Ag 3.1 ng/mL (0.0-2.4) H 09/11/20 05:18 Procalcitonin < 0.05 ng/mL (<0.15) 09/07/20 17:01 TSH 2.730 mlU/mL (0.270-4.200) 09/07/20 15:28 Free T4 1.34 ng/dL (0.76-1.46) 09/07/20 15:28 PTH Intact 5.89 pg/mL (15-65) L 09/08/20 09:54 Urine Color Straw (Yellow) 09/07/20 21:05 Urine Turbidity Clear (Clear) 09/07/20 21:05 Urine pH 7.0 (5.0-7.0) 09/07/20 21:05 Ur Specific [place] 1.005 (1.003-1.030) 09/07/20 21:05 Urine Protein <15 mg/dl mg/dL (Negative) 09/07/20 21:05 Urine Glucose (UA) Neg mg/dL (Negative) 09/07/20 21:05 Urine Ketones Neg mg/dL (Negative) 09/07/20 21:05 Urine Blood Neg (Negative) 09/07/20 21:05 Urine Nitrite Neg (Negative) 09/07/20 21:05 Urine Bilirubin Neg (Negative) 09/07/20 21:05 Urine Urobilinogen < 2.0 mg/dL (<2.0) 09/07/20 21:05 Ur Leukocyte Esterase Neg (Negative) 09/07/20 21:05 Urine WBC (Auto) 1.0 /HPF (0.0-6.0) 09/07/20 21:05 Urine RBC (Auto) 1.0 /HPF (0.0-6.0) 09/07/20 21:05 Urine Bacteria (Auto) 1+ /HPF (Negative) 09/07/20 21:05 Urine Opiates Screen Negative 09/07/20 21:05 Urine Methadone Screen Negative 09/07/20 21:05 Ur Barbiturates Screen Negative 09/07/20 21:05 Ur Phencyclidine Scrn Negative 09/07/20 21:05 Ur Amphetamines Screen Negative 09/07/20 21:05 U Benzodiazepines Scrn Negative 09/07/20 21:05 Urine Cocaine Screen Negative 09/07/20 21:05 U Marijuana (THC) Screen Negative 09/07/20 21:05 Drugs of Abuse Note Disclamer 09/07/20 21:05 Plasma/Serum Alcohol < 0.01 % (0-0.07) 09/07/20 15:28 Coronavirus (PCR) Negative (Negative) 09/08/20 10:06 Monique/IV: Voiding Method Toilet Active Medications - Current Medications Current Medications: Generic Name Dose Route Start Last Admin Trade Name Freq PRN Reason Stop Dose Admin Acetaminophen 650 mg 09/08/20 11:56 Acetaminophen 325 Mg Tab PO Q6H PRN Pain, Mild (1-3) Benzocaine/Menthol 1 each 09/15/20 17:51 09/15/20 22:09 Benzocaine/Menthol Lozenge MM 1 each Q2HR PRN Administration Sore Throat Dextrose 50 ml 09/07/20 18:15 09/09/20 22:20 Dextrose 50% In Water (25gm) 50 Ml Syringe IV 50 ml Q30MIN PRN Administration Hypoglycemia Protocol Enoxaparin Sodium 40 mg 09/15/20 10:00 09/15/20 10:02 Enoxaparin 40 Mg/0.4 Ml Inj SUB-Q 40 mg QDAY CLARICE Administration Protocol Famotidine 20 mg 09/07/20 22:00 09/15/20 22:08 Famotidine 20 Mg Tab PO 20 mg BID CLARICE Administration Insulin Human Lispro 0 unit 09/07/20 22:00 09/15/20 22:07 Insulin Lispro 100 Unit/Ml SUB-Q 4 unit ACHS CLARICE Administration Protocol Methylprednisolone Sodium Succinate 40 mg 09/15/20 10:00 09/15/20 10:02 Methylprednisolone Sod Succinate 40 Mg/1 Ml Inj IV 40 mg Q24HR CLARICE Administration Multivitamins 1 each 09/08/20 10:00 09/15/20 09:00 Multivitamins ,Therapeutic Tab PO 1 each QDAY CLARICE Administration Ondansetron HCl 4 mg 09/08/20 11:57 Ondansetron 4 Mg/2 Ml Inj IV Q8H PRN Nausea And Vomiting Oxycodone/Acetaminophen 1 tab 09/08/20 12:03 09/15/20 22:13 Oxycodone /Acetaminophen 5-325mg Tab PO 1 tab Q6H PRN Administration Pain, Moderate (4-6) Potassium Chloride 40 meq 09/16/20 10:00 Potassium Chloride Er 20 Meq Tab PO 09/16/20 14:00 ONCE CLARICE Sodium Chloride 1 gm 09/14/20 22:00 09/15/20 22:09 Sodium Chloride 1 Gm Tab PO 1 gm BID CLARICE Administration Nutrition/Malnutrition Assess - Dietary Evaluation Nutrition/Malnutrition Findings: Nutrition Notes Start: 09/08/20 08:59 Freq: Status: Active Protocol: Document 09/16/20 09:45 CW (Rec: 09/16/20 09:57 CW [id number]) Nutrition Notes Initial or Follow up Reassessment Current Diagnosis Diabetes,Hypertension Other Pertinent Diagnosis PNA, Confusion Current Diet NPO Labs/Tests Na 131 K 3.4 BG 199 Ca 7.6 Pertinent Medications D50w 50 ML Solumedrol NaCl 1 g Height 5 ft 6 in Weight 60.3 kg [place] Body Weight (kg) 64.54 BMI 21.4 Weight change and time frame weight change noted; 7.8% x 6 days Weight Status Appropriate Subjective/Other Information F/U for PO intakes and ONS tolerance. Pt current NPO for procedure. PO intake prior to NPO status is excellent. BMI WNL at this time. Weight increasing. Will decrease ONS for weight stablization. Percent of energy/protein needs met: 144%/162% Burn Absent Trauma Absent GI Symptoms None Difficulty In Chewing Food Allergy No Cultural/Ethnic/Jainism Belief [place] foods Current % PO Good (75-100%) Minimum of two criteria No physical signs of malnutrition #3 Nutrition Diagnosis No nutrition diagnosis at this time #2 Nutrition Diagnosis Inadequate oral intake Diagnosis Progress(for reassessment Resolved documentation) Is patient on ventilator? No Is Patient Ambulatory and/or Out of Bed Yes REE-([facility]-ambulatory/OOB) [ 1729.975 [id number]] Calculation Used for Recommendations [facility] Additional Notes Protein needs 60-72g (1-1.2g/ kg for advanced age) Fluid needs are 1ml/kcal Nutrition Intervention Change Diet Order: Continue Mechanical Soft Diet Add Supplement/Snack (indicate name/kcal Glucerna QD /protein ) Provides kCal: 220 Provides Protein (gm) 10 Goal #1 Meet at least 80% of kcal and protein needs Anticipated Discharge Needs: Mechanical soft consistent carbohydrates and ONS PRN Follow-Up By: 09/19/20 Additional Comments F/U for PO intakes and ONS
[2020-09-16] MEDS ORDERED: SODIUM CHLORIDE 0.9% 500 ML 0 ML ONE (12:32)
[2020-09-16] MEDS ORDERED: HYDROmorphone 1 MG/1 ML INJ IV ONE (13:00)
[2020-09-16] MEDS ORDERED: ONDANSETRON 4 MG/2 ML INJ IV ONE (13:27)
--- NOTE | 2020-09-16 14:59 | Procedure Note ---
Date of procedure: 09/16/20 Pre-op diagnosis: Chest wall mass Post-op diagnosis: same Procedure: CT-guided chest wall mass biopsy Findings: Please see report in EMR Anesthesia: local Surgeon: AYLIN JOYNER Estimated blood loss: minimal Pathology: list (sample in formalin for surgical pathology) Specimen disposition: to lab Condition: stable Disposition: floor
--- NOTE | 2020-09-16 15:38 | Cat Scan Report ---
CT-guided left-sided lungs/chest wall mass biopsy INDICATION : Lung/chest wall mass. COMPARISON: CT chest from 09/09/2020 PROCEDURE: The risks (including but not limited to bleeding and infection) and benefits were explain ed to the patient and informed consent was obtained. All CT scans at this location are performed usi ng CT dose reduction for ALARA by means of automated exposure control. A time out procedure was performed. The procedure site was prepped and draped in the usual sterile f ashion and lidocaine was used for local anesthesia. Utilizing CT guidance and with the patient placed supine, a left anterior oblique approach was used t o biopsy the left sided lungs/chest wall mass. The biopsy was actually performed on the extrathoracic portion of the mass in the lung itself was not biopsied. 3 separate 20-gauge biopsy samples were obt ained and placed directly in formalin. The sample was taken by pathology for further evaluation. An i mmediate postprocedure scan showed no appreciable complication. The patient tolerated the procedure well with no complications. IMPRESSION: Successful CT-guided left lung/chest wall mass biopsy as above. Signer Name: Manny Matos MD Signed: 09/16/2020 3:33 PM Workstation Name: [id number]
--- NOTE | 2020-09-16 17:20 | XRay Report ---
CHEST 1 VIEW 09/16/2020 4:20 PM INDICATION / CLINICAL INFORMATION: post lung biopsy. COMPARISON: Chest CT on 09/09/2020 FINDINGS: SUPPORT DEVICES: None. HEART / MEDIASTINUM: No significant abnormality. LUNGS / PLEURA: Stable masslike opacity in the left lung. No pneumothorax. ADDITIONAL FINDINGS: No significant additional findings. IMPRESSION: 1. No appreciable pneumothorax following lung biopsy. Signer Name: Daryn Hazel MD Signed: 09/16/2020 5:15 PM Workstation Name: [id number]
[2020-09-16] MEDS: ENOXAPARIN 40 MG/0.4 ML INJ SUB-Q SCH (17:23)
[2020-09-16] MEDS: oxyCODONE /ACETAMINOPHEN 5-325MG TAB PO PRN (18:20)
[2020-09-16] MEDS: MULTIVITAMINS ,THERAPEUTIC TAB PO SCH (18:20)
[2020-09-16] MEDS: methylPREDNISolone Sod Succinate 40 MG/1 ML INJ IV SCH (18:20)
--- NOTE | 2020-09-17 02:44 | Hem/Onc Progress Note ---
Subjective Interval history: 65yo [place] man with recent weakness, falling, eval for L hip pain since admission found to have a large anterior mediastinal mass and hypercalcemia 10-11 s/p pamidronate, calcitonin, steroid pulse for several days s/p mediastainal mass biopsy 09/16/20 low fever 100 same day as biopsy DATA REVIEWED BELOW Chest CT: large anterior mediatinal mass with sternal bone invasion CEA low 3.1 SPEP neg IMP: aggressive-appearing mediastinal mass, likely lymphoma if it's lymphoma, then he may benefit from urgent chemo and radiation recent hypercalcemia attrib to malignancy-improved after pamidronate and calcitonin REC: await mediastinal mass biopsy interpretation consider transfer to tertiary care hospital for chemo +/- radiation stop steroids for now Active Medications Methylprednisolone Sodium Succinate (Methylprednisolone Sod Succinate 40 Mg/1 Ml Inj) 40 mg IV Q24HR CLARICE Last Admin: 09/16/20 18:20 Dose: 40 mg Vital Signs Temp Pulse Resp BP Pulse Ox 100.0 F H 94 H 18 117/73 99 09/16/20 23:35 09/16/20 23:35 09/16/20 23:35 09/16/20 23:35 09/16/20 23:35 Temperature -Last 24 Hours Temperature 100.0 F Temperature 97.8 F Temperature 98.0 F Temperature 98.0 F Laboratory Last Values WBC 14.3 K/mm3 (4.5-11.0) H 09/15/20 05:00 Hgb 8.9 gm/dl (11.8-15.2) L 09/15/20 05:00 Hct 26.0 % (35.5-45.6) L 09/15/20 05:00 Plt Count 246 K/mm3 (140-440) 09/15/20 05:00 Calcium 7.6 mg/dL (8.4-10.2) L 09/16/20 05:36 Magnesium 1.50 mg/dL (1.7-2.3) L 09/09/20 04:59 Lactate Dehydrogenase 335 units/L (91-180) H 09/07/20 17:01 Coronavirus (PCR) Negative (Negative) 09/08/20 10:06 Objective - Constitutional Vitals: Last Vital Signs Temp 100.0 F H 09/16/20 23:35 Pulse 94 H 09/16/20 23:35 Resp 18 09/16/20 23:35 BP 117/73 09/16/20 23:35 Pulse Ox 99 09/16/20 23:35 - Labs Lab Results: Laboratory Results - last 24 hr 09/16/20 09/16/20 09/16/20 05:36 09:14 12:29 Sodium 131 L Potassium 3.4 L Chloride 95.5 L Carbon Dioxide 29 Anion Gap 10 BUN 18 Creatinine 0.6 L Estimated GFR > 60 BUN/Creatinine Ratio 30 Glucose 199 H POC Glucose 149 H 148 H Calcium 7.6 L 09/16/20 09/16/20 16:23 21:03 Sodium Potassium Chloride Carbon Dioxide Anion Gap BUN Creatinine Estimated GFR BUN/Creatinine Ratio Glucose POC Glucose 186 H 314 H Calcium Medications & Allergies - Medications Allergies/Adverse Reactions: Allergies No Known Allergies Allergy (Unverified 09/07/20 14:22) Home Medications: Home Medications Medication Instructions Recorded Confirmed Last Taken Type Unobtainable 09/10/20 09/10/20 Unknown History Active Medications: Generic Name Dose Route Start Last Admin Trade Name Eliel PRN Reason Stop Dose Admin Acetaminophen 650 mg 09/08/20 11:56 Acetaminophen 325 Mg Tab PO Q6H PRN Pain, Mild (1-3) Benzocaine/Menthol 1 each 09/15/20 17:51 09/15/20 22:09 Benzocaine/Menthol Lozenge MM 1 each Q2HR PRN Administration Sore Throat Dextrose 50 ml 09/07/20 18:15 09/09/20 22:20 Dextrose 50% In Water (25gm) 50 Ml Syringe IV 50 ml Q30MIN PRN Administration Hypoglycemia Protocol Enoxaparin Sodium 40 mg 09/15/20 10:00 09/16/20 17:23 Enoxaparin 40 Mg/0.4 Ml Inj SUB-Q Not Given QDAY CLARICE Protocol Famotidine 20 mg 09/07/20 22:00 09/16/20 23:09 Famotidine 20 Mg Tab PO 20 mg BID CLARICE Administration Insulin Human Lispro 0 unit 09/07/20 22:00 09/16/20 23:09 Insulin Lispro 100 Unit/Ml SUB-Q 6 unit ACHS CLARICE Administration Protocol Methylprednisolone Sodium Succinate 40 mg 09/15/20 10:00 09/16/20 18:20 Methylprednisolone Sod Succinate 40 Mg/1 Ml Inj IV 40 mg Q24HR CLARICE Administration Multivitamins 1 each 09/08/20 10:00 09/16/20 18:20 Multivitamins ,Therapeutic Tab PO 1 each QDAY CLARICE Administration Ondansetron HCl 4 mg 09/08/20 11:57 Ondansetron 4 Mg/2 Ml Inj IV Q8H PRN Nausea And Vomiting Oxycodone/Acetaminophen 1 tab 09/08/20 12:03 09/16/20 18:20 Oxycodone /Acetaminophen 5-325mg Tab PO 1 tab Q6H PRN Administration Pain, Moderate (4-6) Sodium Chloride 1 gm 09/14/20 22:00 09/16/20 23:09 Sodium Chloride 1 Gm Tab PO 1 gm BID CLARICE Administration
[2020-09-17 05:22] LABS: Basophils % (Auto) 0.2 % (0.0-1.8); Hematocrit 23.1 % (35.5-45.6); Hemoglobin 7.9 gm/dl (11.8-15.2); Lymphocytes # (Auto) 1.3 K/mm3 (1.2-5.4); Lymphocytes % (Auto) 9.2 % (13.4-35.0); Mean Corpuscular HGB Conc 34 % (32-34); Mean Corpuscular Volume 86 fl (84-94); Monocytes # (Auto) 0.7 K/mm3 (0.0-0.8); Monocytes % (Auto) 4.8 % (0.0-7.3); Platelet Count 283 K/mm3 (140-440); Red Blood Count 2.67 M/mm3 (3.65-5.03); Red Cell Distribution Width 14.7 % (13.2-15.2)
[2020-09-17 05:28] LABS: BUN/Creatinine Ratio 19; Blood Urea Nitrogen 19 mg/dL (9-20); Calcium 7.4 mg/dL (8.4-10.2); Hemolysis Index 3
[2020-09-17] MEDS: INSULIN LISPRO 100 UNIT/ML SUB-Q SCH ×3 (07:30→17:00)
--- NOTE | 2020-09-17 09:11 | Progress Note ---
Assessment and Plan Impression: * Hypercalcemia --PTH appropriately suppressed. SPEP WNL. RAMYA WNL * Anterior mediastinal mass * Hypokalemia * Hypomagnesemia * Hyponatremia * PNA * Failure to thrive * Type 2 diabetes melliuts * Hypertension Plan: * Continue to NaCl tablets - note increase to 2 TID; continue fluid restriction * Urine lytes are pending * Malignancy workup in progress. Pulmonary and oncology recommendations noted * Holding calcitonin * Follow up vitamin D panel. * Replete lytes prn * Strict I/O Subjective Date of service: 09/17/20 Principal diagnosis: hypercalcemia, weakness Interval history: Patient has no complaints today. Objective - Vital Signs Vital signs: Vital Signs - 12hr 09/16/20 09/16/20 09/17/20 22:00 23:35 03:36 Temperature 100.0 F H 100.2 F H Pulse Rate 98 H 94 H 99 H Respiratory 18 18 Rate Blood Pressure 117/73 120/73 O2 Sat by Pulse 99 99 Oximetry 09/17/20 08:41 Temperature 98.0 F Pulse Rate 94 H Respiratory 18 Rate Blood Pressure 78/38 O2 Sat by Pulse 100 Oximetry - General Appearance General appearance: well-developed, well-nourished EENT: ATNC Respiratory: Present: Clear to Ascultation Cardiology: regular, S1S2 Gastrointestinal: normal Integumentary: no rash, warm and dry Musculoskeletal: other (trace edema) Psychiatric: cooperative - Lab 09/17/20 04:41 09/17/20 04:41 Most recent lab results Calcium 7.4 mg/dL (8.4-10.2) L 09/17/20 04:41 Magnesium 1.50 mg/dL (1.7-2.3) L 09/09/20 04:59 Medications & Allergies - Medications Allergies/Adverse Reactions: Allergies No Known Allergies Allergy (Unverified 09/07/20 14:22) Home Medications: Home Medications Medication Instructions Recorded Confirmed Last Taken Type Unobtainable 09/10/20 09/10/20 Unknown History Active Medications: Generic Name Dose Route Start Last Admin Trade Name Freq PRN Reason Stop Dose Admin Acetaminophen 650 mg 09/08/20 11:56 Acetaminophen 325 Mg Tab PO Q6H PRN Pain, Mild (1-3) Benzocaine/Menthol 1 each 09/15/20 17:51 09/15/20 22:09 Benzocaine/Menthol Lozenge MM 1 each Q2HR PRN Administration Sore Throat Dextrose 50 ml 09/07/20 18:15 09/09/20 22:20 Dextrose 50% In Water (25gm) 50 Ml Syringe IV 50 ml Q30MIN PRN Administration Hypoglycemia Protocol Enoxaparin Sodium 40 mg 09/15/20 10:00 09/16/20 17:23 Enoxaparin 40 Mg/0.4 Ml Inj SUB-Q Not Given QDAY [facility] Protocol Famotidine 20 mg 09/07/20 22:00 09/16/20 23:09 Famotidine 20 Mg Tab PO 20 mg BID [facility] Administration Insulin Glargine 16 units 09/17/20 09:00 Insulin Glargine 100 Units/Ml SUB-Q QAM [facility] Insulin Human Lispro 0 unit 09/07/20 22:00 09/16/20 23:09 Insulin Lispro 100 Unit/Ml SUB-Q 6 unit ACHS [facility] Administration Protocol Multivitamins 1 each 09/08/20 10:00 09/16/20 18:20 Multivitamins ,Therapeutic Tab PO 1 each QDAY [facility] Administration Ondansetron HCl 4 mg 09/08/20 11:57 Ondansetron 4 Mg/2 Ml Inj IV Q8H PRN Nausea And Vomiting Oxycodone/Acetaminophen 1 tab 09/08/20 12:03 09/16/20 18:20 Oxycodone /Acetaminophen 5-325mg Tab PO 1 tab Q6H PRN Administration Pain, Moderate (4-6) Sodium Chloride 2 gm 09/17/20 14:00 Sodium Chloride 1 Gm Tab PO TID [facility]
[2020-09-17] MEDS: FAMOTIDINE 20 MG TAB PO SCH ×2 (09:45→21:10)
[2020-09-17] MEDS: MULTIVITAMINS ,THERAPEUTIC TAB PO SCH (09:46)
[2020-09-17] MEDS: BENZOCAINE/MENTHOL LOZENGE MM PRN ×3 (09:46→18:20)
[2020-09-17] MEDS: ENOXAPARIN 40 MG/0.4 ML INJ SUB-Q SCH (09:46)
[2020-09-17] MEDS: INSULIN GLARGINE 100 UNITS/ML SUB-Q SCH (09:48)
[2020-09-17] MEDS: oxyCODONE /ACETAMINOPHEN 5-325MG TAB PO PRN ×2 (09:49→21:10)
[2020-09-17 13:17] LABS: Vitamin D, 25-OH, D2 SEE SCANNED RESULT
[2020-09-17] MEDS: SODIUM CHLORIDE 1 GM TAB PO SCH ×2 (13:55→21:10)
--- NOTE | 2020-09-17 16:10 | Hem/Onc Progress Note ---
Subjective Interval history: 65yo [place]-Stateless man with recent weakness, falling, eval for L hip pain since admission found to have a large anterior mediastinal mass and hypercalcemia 10-11 s/p pamidronate, calcitonin, steroid pulse for several days s/p mediastainal mass biopsy 09/16/20 c/o chest pressure and L hip pain PRELIM dx: carcinoma, maybe squamous cell ca EXAM; sitting up, NAD seems uncomfortable hoarse voice DATA REVIEWED BELOW Chest CT: large anterior mediatinal mass with sternal bone invasion IMP: locally advanced lung cancer recent hypercalcemia attrib to malignancy-improved after pamidronate and calcitonin REC: consider transfer to tertiary care hospital for urgent radiation opiate meds needed for pain Laboratory Last Values WBC 14.0 K/mm3 (4.5-11.0) H 09/17/20 04:41 Hgb 7.9 gm/dl (11.8-15.2) L 09/17/20 04:41 Hct 23.1 % (35.5-45.6) L 09/17/20 04:41 Plt Count 283 K/mm3 (140-440) 09/17/20 04:41 Calcium 7.4 mg/dL (8.4-10.2) L 09/17/20 04:41 Carcinoembryonic Ag 3.1 ng/mL (0.0-2.4) H 09/11/20 05:18 onavirus (PCR) Negative (Negative) 09/08/20 10:06 Objective - Constitutional Vitals: Last Vital Signs Temp 98.2 F 09/17/20 12:48 Pulse 101 H 09/17/20 12:48 Resp 18 09/17/20 12:48 BP 111/55 09/17/20 12:48 Pulse Ox 98 09/17/20 12:48 - Labs Lab Results: Laboratory Results - last 24 hr 09/10/20 09/16/20 09/16/20 05:15 16:23 21:03 WBC RBC Hgb Hct MCV MCH MCHC RDW Plt Count Lymph % (Auto) [place] % (Auto) Eos % (Auto) Baso % (Auto) Lymph # (Auto) [place] # (Auto) Eos # (Auto) Baso # (Auto) Seg Neutrophils % Seg Neutrophils # Sodium Potassium Chloride Carbon Dioxide Anion Gap BUN Creatinine Estimated GFR BUN/Creatinine Ratio Glucose POC Glucose 186 H 314 H Calcium 25-OH Vitamin D Total See scanned result 25-Hydroxy Vitamin D2 See scanned result 1,25 Dihydroxy Vit D2 See scanned result 25-Hydroxy Vitamin D3 See scanned result 1,25 Dihydroxy Vit D3 See scanned result 09/17/20 09/17/20 09/17/20 04:41 04:41 08:40 WBC 14.0 H RBC 2.67 L Hgb 7.9 L Hct 23.1 L MCV 86 MCH 30 MCHC 34 RDW 14.7 Plt Count 283 Lymph % (Auto) 9.2 L [place] % (Auto) 4.8 Eos % (Auto) 0.0 Baso % (Auto) 0.2 Lymph # (Auto) 1.3 [place] # (Auto) 0.7 Eos # (Auto) 0.0 Baso # (Auto) 0.0 Seg Neutrophils % 85.8 H Seg Neutrophils # 12.0 H Sodium 129 L Potassium 3.8 Chloride 92.3 L Carbon Dioxide 28 Anion Gap 13 BUN 19 Creatinine 1.0 D Estimated GFR > 60 BUN/Creatinine Ratio 19 Glucose 323 H POC Glucose 182 H Calcium 7.4 L 25-OH Vitamin D Total 25-Hydroxy Vitamin D2 1,25 Dihydroxy Vit D2 25-Hydroxy Vitamin D3 1,25 Dihydroxy Vit D3 09/17/20 11:52 WBC RBC Hgb Hct MCV MCH MCHC RDW Plt Count Lymph % (Auto) [place] % (Auto) Eos % (Auto) Baso % (Auto) Lymph # (Auto) [place] # (Auto) Eos # (Auto) Baso # (Auto) Seg Neutrophils % Seg Neutrophils # Sodium Potassium Chloride Carbon Dioxide Anion Gap BUN Creatinine Estimated GFR BUN/Creatinine Ratio Glucose POC Glucose 206 H Calcium 25-OH Vitamin D Total 25-Hydroxy Vitamin D2 1,25 Dihydroxy Vit D2 25-Hydroxy Vitamin D3 1,25 Dihydroxy Vit D3 Medications & Allergies - Medications Allergies/Adverse Reactions: Allergies No Known Allergies Allergy (Unverified 09/07/20 14:22) Home Medications: Home Medications Medication Instructions Recorded Confirmed Last Taken Type Unobtainable 09/10/20 09/10/20 Unknown History Active Medications: Generic Name Dose Route Start Last Admin Trade Name Freq PRN Reason Stop Dose Admin Acetaminophen 650 mg 09/08/20 11:56 Acetaminophen 325 Mg Tab PO Q6H PRN Pain, Mild (1-3) Benzocaine/Menthol 1 each 09/15/20 17:51 09/17/20 11:45 Benzocaine/Menthol Lozenge MM 1 each Q2HR PRN Administration Sore Throat Dextrose 50 ml 09/07/20 18:15 09/09/20 22:20 Dextrose 50% In Water (25gm) 50 Ml Syringe IV 50 ml Q30MIN PRN Administration Hypoglycemia Protocol Enoxaparin Sodium 40 mg 09/15/20 10:00 09/17/20 09:46 Enoxaparin 40 Mg/0.4 Ml Inj SUB-Q 40 mg QDAY [facility] Administration Protocol Famotidine 20 mg 09/07/20 22:00 09/17/20 09:45 Famotidine 20 Mg Tab PO 20 mg BID [facility] Administration Insulin Glargine 16 units 09/17/20 09:00 09/17/20 09:48 Insulin Glargine 100 Units/Ml SUB-Q 16 units QAM [facility] Administration Insulin Human Lispro 0 unit 09/07/20 22:00 09/17/20 12:57 Insulin Lispro 100 Unit/Ml SUB-Q 3 unit ACHS [facility] Administration Protocol Multivitamins 1 each 09/08/20 10:00 09/17/20 09:46 Multivitamins ,Therapeutic Tab PO 1 each QDAY [facility] Administration Ondansetron HCl 4 mg 09/08/20 11:57 Ondansetron 4 Mg/2 Ml Inj IV Q8H PRN Nausea And Vomiting Oxycodone/Acetaminophen 1 tab 09/08/20 12:03 09/17/20 09:49 Oxycodone /Acetaminophen 5-325mg Tab PO 1 tab Q6H PRN Administration Pain, Moderate (4-6) Sodium Chloride 2 gm 09/17/20 14:00 09/17/20 13:55 Sodium Chloride 1 Gm Tab PO 2 gm TID [facility] Administration
--- NOTE | 2020-09-17 18:05 | Progress Note ---
Assessment and Plan Assessment and plan: Pneumonia Pneumonia pathway. Rocephin 1 g IV daily. Zithromax 500 mg IV daily. DuoNeb by nebulizer every 4 hours as needed. Chronic hypertension Home BP meds Toxic metabolic encephalopathy. Mediastinal mass/probable lymphoma Preliminary report is suggestive of carcinoma Patient will need to be transferred to a tertiary center for evaluation of radiative treatment Hypercalcemia of malignancy Nephrology consulted. Continue calcitonin every 12 hours with a goal of less than 10.5. Check SPEP and RAMYA level. PTH decreased. Diabetes 1800 kcal ADA diet, sliding scale Accu-Chek before meals and at bedtime moderate dose covering. Hypokalemia Replete as needed. Hypomagnesemia Replete as needed. Left hip pain DVT prophylaxis Patient is on heparin 5000 units subcu every 8 hours for DVT prophylaxis. 09/08/2020 -Patient is on IV antibiotics for pneumonia -Electrolyte replacement protocol, BMP from this morning is pending -PT OT evaluation -CT head is negative for acute intracranial findings -Confusion is likely due to metabolic encephalopathy -Blood sugar is within normal limits -Nephrology is consulted for the management of hypercalcemia -ID is consulted for the management of pneumonia, suspected Covid and Covid test is pending 09/09/2020. Continue calcitonin and follow-up calcium levels. Nephrology following. Follow-up SPEP and RAMYA levels. Continue antibiotics for pneumonia. Check CT of the chest, abdomen and pelvis given hypercalcemia. Check PTH related protein. Consider consultation with oncology. 09/10/2020. Chest CT revealed Large infiltrating mass in the anterior mediastinum with bony destruction of the manubrium, sternum. Oncology consultation pending. Patient with hypercalcemia of malignancy treated with calcitonin per nephrology. Antibiotics discontinued by infectious disease. Pulmonary consultation 09/11/2020. I discussed the case with CT surgery (Dr. Bush) who will evaluate the patient for possible mediastinoscopy. Pulmonary, nephrology and oncology following. Continue calcitonin per nephrology recommendations. 09/12/2020. Patient for tissue biopsy per radiology. I discussed the case again with Dr. Bush who believes that patient is not a surgical candidate given the extensive disease/malignancy. I discussed the case with the son (ESTHER Granger number is [phone]) likely poor/grim diagnosis but await pathology of mass. Considerations for palliative/hospice care. 09/13/2020. 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 Surgery recommends tissue diagnosis with CT-guided biopsy. Radiology consulted 09/14/2020. Patient went down yesterday for CT-guided biopsy but refused. I discussed with the patient importance of the test and he states that he will do it on Wednesday. Consider hospice evaluation. Hyponatremia may be secondary to SIADH in the setting of malignancy. Follow-up BMP in a.m. Continue strict I/Os. Nephrology following. Continue pamidronate and steroids per oncology. SPEP and RAMYA normal. 09/15/2020. Hyponatremia has improved. Continue salt tabs and fluid restriction. 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 SPEP and RAMYA normal. Continue pamidronate and steroids per oncology. CT-guided biopsy planned for Wednesday at 8 AM. If patient refuses again, patient will be discharged home. Patient needs hospice evaluation. 09/16/2020. Hyponatremia is stable. Continue salt tabs and fluid restriction. 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 SPEP and RAMYA normal. Continue pamidro steven and steroids per oncology. CT-guided biopsy of mediastinal mass planned for today. Pt. will likely needs hospice evaluation. 09/17. Preliminary report of mediastinal mass consistent of carcinoma. He will need urgent radiative treatment. Call placed to [facility] for possible transfer. History Interval history: Patient seen and examined at bedside Hospitalist Physical - Constitutional Vitals: Temp Pulse Resp BP Pulse Ox 98.2 F 101 H 18 111/55 98 09/17/20 12:48 09/17/20 12:48 09/17/20 12:48 09/17/20 12:48 09/17/20 12:48 General appearance: Present: no acute distress, well-nourished HEART Score - HEART Score Troponin: Troponin T 0.014 ng/mL (0.00-0.029) 09/07/20 15:28 Results - Labs CBC & Chem 7: 09/17/20 04:41 09/17/20 04:41 Labs: Laboratory Last Values WBC 14.0 K/mm3 (4.5-11.0) H 09/17/20 04:41 RBC 2.67 M/mm3 (3.65-5.03) L 09/17/20 04:41 Hgb 7.9 gm/dl (11.8-15.2) L 09/17/20 04:41 Hct 23.1 % (35.5-45.6) L 09/17/20 04:41 MCV 86 fl (84-94) 09/17/20 04:41 MCH 30 pg (28-32) 09/17/20 04:41 MCHC 34 % (32-34) 09/17/20 04:41 RDW 14.7 % (13.2-15.2) 09/17/20 04:41 Plt Count 283 K/mm3 (140-440) 09/17/20 04:41 Lymph % (Auto) 9.2 % (13.4-35.0) L 09/17/20 04:41 [place] % (Auto) 4.8 % (0.0-7.3) 09/17/20 04:41 Eos % (Auto) 0.0 % (0.0-4.3) 09/17/20 04:41 Baso % (Auto) 0.2 % (0.0-1.8) 09/17/20 04:41 Lymph # (Auto) 1.3 K/mm3 (1.2-5.4) 09/17/20 04:41 [place] # (Auto) 0.7 K/mm3 (0.0-0.8) 09/17/20 04:41 Eos # (Auto) 0.0 K/mm3 (0.0-0.4) 09/17/20 04:41 Baso # (Auto) 0.0 K/mm3 (0.0-0.1) 09/17/20 04:41 Seg Neutrophils % 85.8 % (40.0-70.0) H 09/17/20 04:41 Seg Neutrophils # 12.0 K/mm3 (1.8-7.7) H 09/17/20 04:41 PT 12.6 Sec. (12.2-14.9) 09/13/20 13:17 INR 0.96 (0.87-1.13) 09/13/20 13:17 APTT 29.6 Sec. (24.2-36.6) 09/13/20 13:17 D-Dimer 472.35 ng/mlDDU (0-234) H 09/07/20 17:01 Sodium 129 mmol/L (137-145) L 09/17/20 04:41 Potassium 3.8 mmol/L (3.6-5.0) 09/17/20 04:41 Chloride 92.3 mmol/L (98-107) L 09/17/20 04:41 Carbon Dioxide 28 mmol/L (22-30) 09/17/20 04:41 Anion Gap 13 mmol/L 09/17/20 04:41 BUN 19 mg/dL (9-20) 09/17/20 04:41 Creatinine 1.0 mg/dL (0.8-1.3) D 09/17/20 04:41 Estimated GFR > 60 ml/min 09/17/20 04:41 BUN/Creatinine Ratio 19 % 09/17/20 04:41 Glucose 323 mg/dL (75-100) H 09/17/20 04:41 POC Glucose 206 mg/dL (70-105) H 09/17/20 11:52 Uric Acid 4.5 mg/dL (3.5-7.6) 09/13/20 05:06 Calcium 7.4 mg/dL (8.4-10.2) L 09/17/20 04:41 Magnesium 1.50 mg/dL (1.7-2.3) L 09/09/20 04:59 Ferritin 389.0 ng/mL (30.0-300.0) H 09/07/20 17:01 Total Bilirubin < 0.20 mg/dL (0.1-1.2) 09/15/20 05:00 AST 29 units/L (5-40) 09/15/20 05:00 ALT 25 units/L (7-56) 09/15/20 05:00 Alkaline Phosphatase 113 units/L (35-129) 09/15/20 05:00 Lactate Dehydrogenase 335 units/L (91-180) H 09/07/20 17:01 Total Creatine Kinase 146 units/L (55-170) 09/07/20 15:28 Troponin T 0.014 ng/mL (0.00-0.029) 09/07/20 15:28 C-Reactive Protein 1.60 mg/dL (0.00-1.30) H 09/07/20 17:01 Serum Total Protein 6.4 g/dL (6.1-8.1) 09/08/20 09:54 Total Protein 6.3 g/dL (6.3-8.2) 09/15/20 05:00 Albumin 3.1 g/dL (3.9-5) L 09/15/20 05:00 Albumin/Globulin Ratio 1.0 % 09/15/20 05:00 Zjtof-1-Gswmyzumh 0.5 g/dL (0.2-0.3) H 09/08/20 09:54 Slsva-9-Dvsqiufra 0.9 g/dL (0.5-0.9) 09/08/20 09:54 Beta Globulins 0.5 g/dL (0.2-0.5) 09/08/20 09:54 Gamma Globulins 1.3 g/dL (0.8-1.7) 09/08/20 09:54 Abnorm Protein Band 1 see below 09/08/20 09:54 PEP Interpretation see below H 09/08/20 09:54 Angiotensin Convert Enz 22 U/L (9-67) 09/08/20 09:54 Carcinoembryonic Ag 3.1 ng/mL (0.0-2.4) H 09/11/20 05:18 25-OH Vitamin D Total See scanned result 09/10/20 05:15 25-Hydroxy Vitamin D2 See scanned result 09/10/20 05:15 1,25 Dihydroxy Vit D2 See scanned result 09/10/20 05:15 25-Hydroxy Vitamin D3 See scanned result 09/10/20 05:15 1,25 Dihydroxy Vit D3 See scanned result 09/10/20 05:15 Procalcitonin < 0.05 ng/mL (<0.15) 09/07/20 17:01 TSH 2.730 mlU/mL (0.270-4.200) 09/07/20 15:28 Free T4 1.34 ng/dL (0.76-1.46) 09/07/20 15:28 PTH Intact 5.89 pg/mL (15-65) L 09/08/20 09:54 Urine Color Straw (Yellow) 09/07/20 21:05 Urine Turbidity Clear (Clear) 09/07/20 21:05 Urine pH 7.0 (5.0-7.0) 09/07/20 21:05 Ur Specific [place] 1.005 (1.003-1.030) 09/07/20 21:05 Urine Protein <15 mg/dl mg/dL (Negative) 09/07/20 21:05 Urine Glucose (UA) Neg mg/dL (Negative) 09/07/20 21:05 Urine Ketones Neg mg/dL (Negative) 09/07/20 21:05 Urine Blood Neg (Negative) 09/07/20 21:05 Urine Nitrite Neg (Negative) 09/07/20 21:05 Urine Bilirubin Neg (Negative) 09/07/20 21:05 Urine Urobilinogen < 2.0 mg/dL (<2.0) 09/07/20 21:05 Ur Leukocyte Esterase Neg (Negative) 09/07/20 21:05 Urine WBC (Auto) 1.0 /HPF (0.0-6.0) 09/07/20 21:05 Urine RBC (Auto) 1.0 /HPF (0.0-6.0) 09/07/20 21:05 Urine Bacteria (Auto) 1+ /HPF (Negative) 09/07/20 21:05 Urine Opiates Screen Negative 09/07/20 21:05 Urine Methadone Screen Negative 09/07/20 21:05 Ur Barbiturates Screen Negative 09/07/20 21:05 Ur Phencyclidine Scrn Negative 09/07/20 21:05 Ur Amphetamines Screen Negative 09/07/20 21:05 U Benzodiazepines Scrn Negative 09/07/20 21:05 Urine Cocaine Screen Negative 09/07/20 21:05 U Marijuana (THC) Screen Negative 09/07/20 21:05 Drugs of Abuse Note Disclamer 09/07/20 21:05 Plasma/Serum Alcohol < 0.01 % (0-0.07) 09/07/20 15:28 Coronavirus (PCR) Negative (Negative) 09/08/20 10:06 Monique/IV: Voiding Method Urinal Active Medications - Current Medications Current Medications: Generic Name Dose Route Start Last Admin Trade Name Freq PRN Reason Stop Dose Admin Acetaminophen 650 mg 09/08/20 11:56 Acetaminophen 325 Mg Tab PO Q6H PRN Pain, Mild (1-3) Benzocaine/Menthol 1 each 09/15/20 17:51 09/17/20 11:45 Benzocaine/Menthol Lozenge MM 1 each Q2HR PRN Administration Sore Throat Dextrose 50 ml 09/07/20 18:15 09/09/20 22:20 Dextrose 50% In Water (25gm) 50 Ml Syringe IV 50 ml Q30MIN PRN Administration Hypoglycemia Protocol Enoxaparin Sodium 40 mg 09/15/20 10:00 09/17/20 09:46 Enoxaparin 40 Mg/0.4 Ml Inj SUB-Q 40 mg QDAY [facility] Administration Protocol Famotidine 20 mg 09/07/20 22:00 09/17/20 09:45 Famotidine 20 Mg Tab PO 20 mg BID [facility] Administration Insulin Glargine 16 units 09/17/20 09:00 09/17/20 09:48 Insulin Glargine 100 Units/Ml SUB-Q 16 units QAM [facility] Administration Insulin Human Lispro 0 unit 09/07/20 22:00 09/17/20 17:00 Insulin Lispro 100 Unit/Ml SUB-Q Not Given ACHS [facility] Protocol Multivitamins 1 each 09/08/20 10:00 09/17/20 09:46 Multivitamins ,Therapeutic Tab PO 1 each QDAY [facility] Administration Ondansetron HCl 4 mg 09/08/20 11:57 Ondansetron 4 Mg/2 Ml Inj IV Q8H PRN Nausea And Vomiting Oxycodone/Acetaminophen 1 tab 09/08/20 12:03 09/17/20 09:49 Oxycodone /Acetaminophen 5-325mg Tab PO 1 tab Q6H PRN Administration Pain, Moderate (4-6) Sodium Chloride 2 gm 09/17/20 14:00 09/17/20 13:55 Sodium Chloride 1 Gm Tab PO 2 gm TID [facility] Administration Nutrition/Malnutrition Assess - Dietary Evaluation Nutrition/Malnutrition Findings: Nutrition Notes Start: 09/08/20 08:59 Freq: Status: Active Protocol: Document 09/16/20 09:45 CW (Rec: 09/16/20 09:57 CW [id number]) Nutrition Notes Initial or Follow up Reassessment Current Diagnosis Diabetes,Hypertension Other Pertinent Diagnosis PNA, Confusion Current Diet NPO Labs/Tests Na 131 K 3.4 BG 199 Ca 7.6 Pertinent Medications D50w 50 ML Solumedrol NaCl 1 g Height 5 ft 6 in Weight 60.3 kg [place] Body Weight (kg) 64.54 BMI 21.4 Weight change and time frame weight change noted; 7.8% x 6 days Weight Status Appropriate Subjective/Other Information F/U for PO intakes and ONS tolerance. Pt current NPO for procedure. PO intake prior to NPO status was excellent. Pt has a good appetite and is requesting food. However, relayed to resident that it is not possible at this time but diet will be advanced when medically feasible. BMI WNL at this time. Weight increasing. Will decrease ONS for weight stablization. Percent of energy/protein needs met: 144%/162% Burn Absent Trauma Absent GI Symptoms None Difficulty In Chewing Food Allergy No Cultural/Ethnic/Gnosticist Belief [place] foods Current % PO Good (75-100%) Minimum of two criteria No physical signs of malnutrition #3 Nutrition Diagnosis No nutrition diagnosis at this time #2 Nutrition Diagnosis Inadequate oral intake Diagnosis Progress(for reassessment Resolved documentation) Is patient on ventilator? No Is Patient Ambulatory and/or Out of Bed Yes REE-([facility]-ambulatory/OOB) [ 1729.975 [id number]] Calculation Used for Recommendations [facility] Additional Notes Protein needs 60-72g (1-1.2g/ kg for advanced age) Fluid needs are 1ml/kcal Nutrition Intervention Change Diet Order: Continue Mechanical Soft Diet Add Supplement/Snack (indicate name/kcal Glucerna QD /protein ) Provides kCal: 220 Provides Protein (gm) 10 Goal #1 Meet at least 80% of kcal and protein needs Anticipated Discharge Needs: Mechanical soft consistent carbohydrates and ONS PRN Follow-Up By: 09/19/20 Additional Comments F/U for PO intakes and ONS
[2020-09-18] MEDS: INSULIN LISPRO 100 UNIT/ML SUB-Q SCH ×5 (01:30→22:00)
[2020-09-18] MEDS: MULTIVITAMINS ,THERAPEUTIC TAB PO SCH (09:00)
[2020-09-18] MEDS: SODIUM CHLORIDE 1 GM TAB PO SCH ×3 (09:00→20:02)
[2020-09-18] MEDS: FAMOTIDINE 20 MG TAB PO SCH ×2 (09:00→22:35)
[2020-09-18] MEDS: ENOXAPARIN 40 MG/0.4 ML INJ SUB-Q SCH (09:02)
[2020-09-18] MEDS: oxyCODONE /ACETAMINOPHEN 5-325MG TAB PO PRN ×2 (09:05→22:35)
--- NOTE | 2020-09-18 09:48 | Progress Note ---
Assessment and Plan Impression: * Hypercalcemia --PTH appropriately suppressed. SPEP WNL. RAMYA WNL * Anterior mediastinal mass * Hypokalemia * Hypomagnesemia * Hyponatremia * PNA * Failure to thrive * Type 2 diabetes melliuts * Hypertension Plan: * Continue to NaCl tablets 2 TID; continue fluid restriction - Na 133 today * Malignancy workup in progress. Pulmonary and oncology recommendations noted * Holding calcitonin * Follow up vitamin D panel. * Replete lytes prn * Strict I/O * Will follow peripherally Subjective Date of service: 09/18/20 Principal diagnosis: hypercalcemia, weakness Interval history: No acute events overnight Objective - Vital Signs Vital signs: Vital Signs - 12hr 09/17/20 09/18/20 09/18/20 22:00 00:08 04:44 Temperature 99.0 F 98.2 F Pulse Rate 87 87 101 H Pulse Rate [ 99 H Left Radial] Pulse Rate [ 99 H Right Radial] Respiratory 19 18 18 Rate Respiratory 20 Rate [Right Shoulder] Blood Pressure 129/82 134/80 O2 Sat by Pulse 98 100 Oximetry 09/18/20 07:56 Temperature Pulse Rate Pulse Rate [ Left Radial] Pulse Rate [ Right Radial] Respiratory 18 Rate Respiratory Rate [Right Shoulder] Blood Pressure O2 Sat by Pulse Oximetry - General Appearance General appearance: well-developed, well-nourished EENT: ATNC Cardiology: regular, S1S2 Gastrointestinal: normal, no tenderness, no distended Integumentary: no rash, warm and dry Neurologic: no focal deficit - Lab 09/20/20 06:18 09/20/20 06:18 Most recent lab results Calcium 7.4 mg/dL (8.4-10.2) L 09/17/20 04:41 Magnesium 1.50 mg/dL (1.7-2.3) L 09/09/20 04:59 Medications & Allergies - Medications Allergies/Adverse Reactions: Allergies No Known Allergies Allergy (Unverified 09/07/20 14:22) Home Medications: Home Medications Medication Instructions Recorded Confirmed Last Taken Type Unobtainable 09/10/20 09/10/20 Unknown History Active Medications: Generic Name Dose Route Start Last Admin Trade Name Freq PRN Reason Stop Dose Admin Acetaminophen 650 mg 09/08/20 11:56 Acetaminophen 325 Mg Tab PO Q6H PRN Pain, Mild (1-3) Benzocaine/Menthol 1 each 09/15/20 17:51 09/17/20 18:20 Benzocaine/Menthol Lozenge MM 1 each Q2HR PRN Administration Sore Throat Dextrose 50 ml 09/07/20 18:15 09/09/20 22:20 Dextrose 50% In Water (25gm) 50 Ml Syringe IV 50 ml Q30MIN PRN Administration Hypoglycemia Protocol Enoxaparin Sodium 40 mg 09/15/20 10:00 09/18/20 09:02 Enoxaparin 40 Mg/0.4 Ml Inj SUB-Q 40 mg QDAY [facility]AR[facility] Administration Protocol Famotidine 20 mg 09/07/20 22:00 09/18/20 09:00 Famotidine 20 Mg Tab PO 20 mg BID [facility] Administration Insulin Glargine 16 units 09/17/20 09:00 09/17/20 09:48 Insulin Glargine 100 Units/Ml SUB-Q 16 units QAM [facility] Administration Insulin Human Lispro 0 unit 09/07/20 22:00 09/18/20 08:35 Insulin Lispro 100 Unit/Ml SUB-Q Not Given ACHS [facility] Protocol Multivitamins 1 each 09/08/20 10:00 09/18/20 09:00 Multivitamins ,Therapeutic Tab PO 1 each QDAY [facility] Administration Ondansetron HCl 4 mg 09/08/20 11:57 Ondansetron 4 Mg/2 Ml Inj IV Q8H PRN Nausea And Vomiting Oxycodone/Acetaminophen 1 tab 09/08/20 12:03 09/18/20 09:05 Oxycodone /Acetaminophen 5-325mg Tab PO 1 tab Q6H PRN Administration Pain, Moderate (4-6) Sodium Chloride 2 gm 09/17/20 14:00 09/18/20 09:00 Sodium Chloride 1 Gm Tab PO 2 gm TID CLARICE Administration
--- NOTE | 2020-09-18 12:12 | Progress Note ---
Assessment and Plan Assessment and plan: Pneumonia Completed treatment Chronic hypertension Home BP meds Toxic metabolic encephalopathy. Resolved Invasive squamous carcinoma of the lung Patient will need to be transferred to a tertiary center for evaluation of radiative treatment [facility] utilization review is currently reviewing case. Hypercalcemia of malignancy Nephrology on board Continue to monitor calcium levels. Diabetes 1800 kcal ADA diet, sliding scale Accu-Chek before meals and at bedtime moderate dose covering. Hypokalemia Replete as needed. Hypomagnesemia Replete as needed. Left hip pain PT/OT DVT prophylaxis Patient is on heparin 5000 units subcu every 8 hours for DVT prophylaxis. 09/08/2020 -Patient is on IV antibiotics for pneumonia -Electrolyte replacement protocol, BMP from this morning is pending -PT OT evaluation -CT head is negative for acute intracranial findings -Confusion is likely due to metabolic encephalopathy -Blood sugar is within normal limits -Nephrology is consulted for the management of hypercalcemia -ID is consulted for the management of pneumonia, suspected Covid and Covid test is pending 09/09/2020. Continue calcitonin and follow-up calcium levels. Nephrology following. Follow-up SPEP and RAMYA levels. Continue antibiotics for pneumonia. Check CT of the chest, abdomen and pelvis given hypercalcemia. Check PTH related protein. Consider consultation with oncology. 09/10/2020. Chest CT revealed Large infiltrating mass in the anterior mediastinum with bony destruction of the manubrium, sternum. Oncology consultation pending. Patient with hypercalcemia of malignancy treated with calcitonin per nephrology. Antibiotics discontinued by infectious disease. Pulmonary consultation 09/11/2020. I discussed the case with CT surgery (Dr. Bush) who will evaluate the patient for possible mediastinoscopy. Pulmonary, nephrology and oncology following. Continue calcitonin per nephrology recommendations. 09/12/2020. Patient for tissue biopsy per radiology. I discussed the case again with Dr. Bush who believes that patient is not a surgical candidate given the extensive disease/malignancy. I discussed the case with the son (ESTHER Granger number is [phone]) likely poor/grim diagnosis but await pathology of mass. Considerations for palliative/hospice care. 09/13/2020. 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 Surgery recommends tissue diagnosis with CT-guided biopsy. Radiology consulted 09/14/2020. Patient went down yesterday for CT-guided biopsy but refused. I discussed with the patient importance of the test and he states that he will do it on Wednesday. Consider hospice evaluation. Hyponatremia may be secondary to SIADH in the setting of malignancy. Follow-up BMP in a.m. Continue strict I/Os. Nephrology following. Continue pamidronate and steroids per oncology. SPEP and RAMYA normal. 09/15/2020. Hyponatremia has improved. Continue salt tabs and fluid restriction. 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 SPEP and RAMYA normal. Continue pamidronate and steroids per oncology. CT-guided biopsy planned for Wednesday at 8 AM. If patient refuses again, patient will be discharged home. Patient needs hospice evaluation. 09/16/2020. Hyponatremia is stable. Continue salt tabs and fluid restriction. 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 SPEP and RAMYA normal. Continue pami dronate and steroids per oncology. CT-guided biopsy of mediastinal mass planned for today. Pt. will likely needs hospice evaluation. 09/17. Preliminary report of mediastinal results is consistent with invasive squamous carcinoma of the lung. Discussed case with patient's son today/lung mass consistent of carcinoma. He will need urgent radiative treatment. Call placed to [facility] for possible transfer. 09/18. Lung biopsy results showed invasive squamous carcinoma. [facility] utilization review is currently reviewing case as he has no payer source. Discussed with patients yifan Mckinney ([phone]) History Interval history: Patient seen and examined at bedside Biopsy is consistent with invasive squamous carcinoma His case is currently being reviewed by [facility] utilization review Discussed with Yifan Mckinney Hospitalist Physical - Physical exam Narrative exam: VITAL SIGNS: Reviewed. GENERAL: Awake HEAD: No signs of head trauma. EYES: Pupils are equal. Extraocular motions intact. MOUTH: Oropharynx is normal. NECK: No adenopathy, no JVD. CHEST: Chest with diminished breath sounds bilaterally. No wheezes, rales, or rhonchi. CARDIAC: normal S1 and S2, without murmurs, gallops, or rubs. ABDOMEN: Soft, non tender and non distended. No rebound or guarding, and no masses palpated. Bowel Sounds normal. MUSCULOSKELETAL: No edema NEUROLOGIC EXAM: Alert and oriented x3. No focal neurologic deficits SKIN: No obvious lesions - Constitutional Vitals: Temp Pulse Resp BP Pulse Ox 98.3 F 103 H 18 133/72 99 09/18/20 09:20 09/18/20 09:20 09/18/20 09:20 09/18/20 09:20 09/18/20 09:20 HEART Score - HEART Score Troponin: Troponin T 0.014 ng/mL (0.00-0.029) 09/07/20 15:28 Results - Labs CBC & Chem 7: 09/18/20 16:49 09/19/20 10:47 Labs: Laboratory Last Values WBC 14.0 K/mm3 (4.5-11.0) H 09/17/20 04:41 RBC 2.67 M/mm3 (3.65-5.03) L 09/17/20 04:41 Hgb 7.9 gm/dl (11.8-15.2) L 09/17/20 04:41 Hct 23.1 % (35.5-45.6) L 09/17/20 04:41 MCV 86 fl (84-94) 09/17/20 04:41 MCH 30 pg (28-32) 09/17/20 04:41 MCHC 34 % (32-34) 09/17/20 04:41 RDW 14.7 % (13.2-15.2) 09/17/20 04:41 Plt Count 283 K/mm3 (140-440) 09/17/20 04:41 Lymph % (Auto) 9.2 % (13.4-35.0) L 09/17/20 04:41 [place] % (Auto) 4.8 % (0.0-7.3) 09/17/20 04:41 Eos % (Auto) 0.0 % (0.0-4.3) 09/17/20 04:41 Baso % (Auto) 0.2 % (0.0-1.8) 09/17/20 04:41 Lymph # (Auto) 1.3 K/mm3 (1.2-5.4) 09/17/20 04:41 [place] # (Auto) 0.7 K/mm3 (0.0-0.8) 09/17/20 04:41 Eos # (Auto) 0.0 K/mm3 (0.0-0.4) 09/17/20 04:41 Baso # (Auto) 0.0 K/mm3 (0.0-0.1) 09/17/20 04:41 Seg Neutrophils % 85.8 % (40.0-70.0) H 09/17/20 04:41 Seg Neutrophils # 12.0 K/mm3 (1.8-7.7) H 09/17/20 04:41 PT 12.6 Sec. (12.2-14.9) 09/13/20 13:17 INR 0.96 (0.87-1.13) 09/13/20 13:17 APTT 29.6 Sec. (24.2-36.6) 09/13/20 13:17 D-Dimer 472.35 ng/mlDDU (0-234) H 09/07/20 17:01 Sodium 129 mmol/L (137-145) L 09/17/20 04:41 Potassium 3.8 mmol/L (3.6-5.0) 09/17/20 04:41 Chloride 92.3 mmol/L (98-107) L 09/17/20 04:41 Carbon Dioxide 28 mmol/L (22-30) 09/17/20 04:41 Anion Gap 13 mmol/L 09/17/20 04:41 BUN 19 mg/dL (9-20) 09/17/20 04:41 Creatinine 1.0 mg/dL (0.8-1.3) D 09/17/20 04:41 Estimated GFR > 60 ml/min 09/17/20 04:41 BUN/Creatinine Ratio 19 % 09/17/20 04:41 Glucose 323 mg/dL (75-100) H 09/17/20 04:41 POC Glucose 88 mg/dL (70-105) 09/18/20 08:22 Uric Acid 4.5 mg/dL (3.5-7.6) 09/13/20 05:06 Calcium 7.4 mg/dL (8.4-10.2) L 09/17/20 04:41 Magnesium 1.50 mg/dL (1.7-2.3) L 09/09/20 04:59 Ferritin 389.0 ng/mL (30.0-300.0) H 09/07/20 17:01 Total Bilirubin < 0.20 mg/dL (0.1-1.2) 09/15/20 05:00 AST 29 units/L (5-40) 09/15/20 05:00 ALT 25 units/L (7-56) 09/15/20 05:00 Alkaline Phosphatase 113 units/L (35-129) 09/15/20 05:00 Lactate Dehydrogenase 335 units/L (91-180) H 09/07/20 17:01 Total Creatine Kinase 146 units/L (55-170) 09/07/20 15:28 Troponin T 0.014 ng/mL (0.00-0.029) 09/07/20 15:28 C-Reactive Protein 1.60 mg/dL (0.00-1.30) H 09/07/20 17:01 Serum Total Protein 6.4 g/dL (6.1-8.1) 09/08/20 09:54 Total Protein 6.3 g/dL (6.3-8.2) 09/15/20 05:00 Albumin 3.1 g/dL (3.9-5) L 09/15/20 05:00 Albumin/Globulin Ratio 1.0 % 09/15/20 05:00 Ztmxb-1-Mmrzaqumb 0.5 g/dL (0.2-0.3) H 09/08/20 09:54 Tgzpz-4-Dohnwxgmg 0.9 g/dL (0.5-0.9) 09/08/20 09:54 Beta Globulins 0.5 g/dL (0.2-0.5) 09/08/20 09:54 Gamma Globulins 1.3 g/dL (0.8-1.7) 09/08/20 09:54 Abnorm Protein Band 1 see below 09/08/20 09:54 PEP Interpretation see below H 09/08/20 09:54 Angiotensin Convert Enz 22 U/L (9-67) 09/08/20 09:54 Carcinoembryonic Ag 3.1 ng/mL (0.0-2.4) H 09/11/20 05:18 25-OH Vitamin D Total See scanned result 09/10/20 05:15 25-Hydroxy Vitamin D2 See scanned result 09/10/20 05:15 1,25 Dihydroxy Vit D2 See scanned result 09/10/20 05:15 25-Hydroxy Vitamin D3 See scanned result 09/10/20 05:15 1,25 Dihydroxy Vit D3 See scanned result 09/10/20 05:15 Procalcitonin < 0.05 ng/mL (<0.15) 09/07/20 17:01 TSH 2.730 mlU/mL (0.270-4.200) 09/07/20 15:28 Free T4 1.34 ng/dL (0.76-1.46) 09/07/20 15:28 PTH Intact 5.89 pg/mL (15-65) L 09/08/20 09:54 Urine Color Straw (Yellow) 09/07/20 21:05 Urine Turbidity Clear (Clear) 09/07/20 21:05 Urine pH 7.0 (5.0-7.0) 09/07/20 21:05 Ur Specific [place] 1.005 (1.003-1.030) 09/07/20 21:05 Urine Protein <15 mg/dl mg/dL (Negative) 09/07/20 21:05 Urine Glucose (UA) Neg mg/dL (Negative) 09/07/20 21:05 Urine Ketones Neg mg/dL (Negative) 09/07/20 21:05 Urine Blood Neg (Negative) 09/07/20 21:05 Urine Nitrite Neg (Negative) 09/07/20 21:05 Urine Bilirubin Neg (Negative) 09/07/20 21:05 Urine Urobilinogen < 2.0 mg/dL (<2.0) 09/07/20 21:05 Ur Leukocyte Esterase Neg (Negative) 09/07/20 21:05 Urine WBC (Auto) 1.0 /HPF (0.0-6.0) 09/07/20 21:05 Urine RBC (Auto) 1.0 /HPF (0.0-6.0) 09/07/20 21:05 Urine Bacteria (Auto) 1+ /HPF (Negative) 09/07/20 21:05 Urine Opiates Screen Negative 09/07/20 21:05 Urine Methadone Screen Negative 09/07/20 21:05 Ur Barbiturates Screen Negative 09/07/20 21:05 Ur Phencyclidine Scrn Negative 09/07/20 21:05 Ur Amphetamines Screen Negative 09/07/20 21:05 U Benzodiazepines Scrn Negative 09/07/20 21:05 Urine Cocaine Screen Negative 09/07/20 21:05 U Marijuana (THC) Screen Negative 09/07/20 21:05 Drugs of Abuse Note Disclamer 09/07/20 21:05 Plasma/Serum Alcohol < 0.01 % (0-0.07) 09/07/20 15:28 Coronavirus (PCR) Negative (Negative) 09/08/20 10:06 Monique/IV: Voiding Method Urinal Active Medications - Current Medications Current Medications: Generic Name Dose Route Start Last Admin Trade Name Freq PRN Reason Stop Dose Admin Acetaminophen 650 mg 09/08/20 11:56 Acetaminophen 325 Mg Tab PO Q6H PRN Pain, Mild (1-3) Benzocaine/Menthol 1 each 09/15/20 17:51 09/17/20 18:20 Benzocaine/Menthol Lozenge MM 1 each Q2HR PRN Administration Sore Throat Dextrose 50 ml 09/07/20 18:15 09/09/20 22:20 Dextrose 50% In Water (25gm) 50 Ml Syringe IV 50 ml Q30MIN PRN Administration Hypoglycemia Protocol Enoxaparin Sodium 40 mg 09/15/20 10:00 09/18/20 09:02 Enoxaparin 40 Mg/0.4 Ml Inj SUB-Q 40 mg QDAY CLARICE Administration Protocol Famotidine 20 mg 09/07/20 22:00 09/18/20 09:00 Famotidine 20 Mg Tab PO 20 mg BID CLARICE Administration Insulin Glargine 16 units 09/17/20 09:00 09/17/20 09:48 Insulin Glargine 100 Units/Ml SUB-Q 16 units QAM CLARICE Administration Insulin Human Lispro 0 unit 09/07/20 22:00 09/18/20 08:35 Insulin Lispro 100 Unit/Ml SUB-Q Not Given ACHS CLARICE Protocol Multivitamins 1 each 09/08/20 10:00 09/18/20 09:00 Multivitamins ,Therapeutic Tab PO 1 each QDAY CLARICE Administration Ondansetron HCl 4 mg 09/08/20 11:57 Ondansetron 4 Mg/2 Ml Inj IV Q8H PRN Nausea And Vomiting Oxycodone/Acetaminophen 1 tab 09/08/20 12:03 09/18/20 09:05 Oxycodone /Acetaminophen 5-325mg Tab PO 1 tab Q6H PRN Administration Pain, Moderate (4-6) Sodium Chloride 2 gm 09/17/20 14:00 09/18/20 09:00 Sodium Chloride 1 Gm Tab PO 2 gm TID CLARICE Administration Nutrition/Malnutrition Assess - Dietary Evaluation Nutrition/Malnutrition Findings: Nutrition Notes Start: 09/08/20 08:59 Freq: Status: Active Protocol: Document 09/16/20 09:45 CW (Rec: 09/16/20 09:57 CW [id number]) Nutrition Notes Initial or Follow up Reassessment Current Diagnosis Diabetes,Hypertension Other Pertinent Diagnosis PNA, Confusion Current Diet NPO Labs/Tests Na 131 K 3.4 BG 199 Ca 7.6 Pertinent Medications D50w 50 ML Solumedrol NaCl 1 g Height 5 ft 6 in Weight 60.3 kg [place] Body Weight (kg) 64.54 BMI 21.4 Weight change and time frame weight change noted; 7.8% x 6 days Weight Status Appropriate Subjective/Other Information F/U for PO intakes and ONS tolerance. Pt current NPO for procedure. PO intake prior to NPO status was excellent. Pt has a good appetite and is requesting food. However, relayed to resident that it is not possible at this time but diet will be advanced when medically feasible. BMI WNL at this time. Weight increasing. Will decrease ONS for weight stablization. Percent of energy/protein needs met: 144%/162% Burn Absent Trauma Absent GI Symptoms None Difficulty In Chewing Food Allergy No Cultural/Ethnic/[employer] Belief [place] foods Current % PO Good (75-100%) Minimum of two criteria No physical signs of malnutrition #3 Nutrition Diagnosis No nutrition diagnosis at this time #2 Nutrition Diagnosis Inadequate oral intake Diagnosis Progress(for reassessment Resolved documentation) Is patient on ventilator? No Is Patient Ambulatory and/or Out of Bed Yes REE-([place]-St. Jeor-ambulatory/OOB) [ 1729.975 [id number]] Calculation Used for Recommendations [place]-St Jeor Additional Notes Protein needs 60-72g (1-1.2g/ kg for advanced age) Fluid needs are 1ml/kcal Nutrition Intervention Change Diet Order: Continue Mechanical Soft Diet Add Supplement/Snack (indicate name/kcal Glucerna QD /protein ) Provides kCal: 220 Provides Protein (gm) 10 Goal #1 Meet at least 80% of kcal and protein needs Anticipated Discharge Needs: Mechanical soft consistent carbohydrates and ONS PRN Follow-Up By: 09/19/20 Additional Comments F/U for PO intakes and ONS
[2020-09-18] MEDS: INSULIN GLARGINE 100 UNITS/ML SUB-Q SCH (13:14)
[2020-09-18 17:11] LABS: Basophils % (Auto) 0.3 % (0.0-1.8); Eosinophils % (Auto) 0.2 % (0.0-4.3); Hematocrit 24.8 % (35.5-45.6); Hemoglobin 8.3 gm/dl (11.8-15.2); Lymphocytes # (Auto) 1.7 K/mm3 (1.2-5.4); Lymphocytes % (Auto) 10.5 % (13.4-35.0); Mean Corpuscular HGB Conc 33 % (32-34); Mean Corpuscular Volume 87 fl (84-94); Monocytes # (Auto) 0.9 K/mm3 (0.0-0.8); Monocytes % (Auto) 5.6 % (0.0-7.3); Platelet Count 308 K/mm3 (140-440); Red Blood Count 2.85 M/mm3 (3.65-5.03)
[2020-09-18 17:45] LABS: Blood Urea Nitrogen 14 mg/dL (9-20); Hemolysis Index 1
[2020-09-18 17:52] LABS: BUN/Creatinine Ratio 23
[2020-09-19] MEDS ORDERED: DEXTROSE 50% IN WATER (25GM) 50 ML SYRINGE IV STA (07:48)
[2020-09-19] MEDS: INSULIN LISPRO 100 UNIT/ML SUB-Q SCH ×4 (08:02→22:24)
--- NOTE | 2020-09-19 09:06 | XRay Report ---
CHEST 1 VIEW INDICATION: Pneumonia. COMPARISON: 09/16/2020 FINDINGS: Support devices: None. Heart: Within normal limits. Lungs/Pleura: There is increased airspace opacity in the left upper lobe. Persistent elevation of the left hemidiaphragm with atelectatic changes or infiltrate at the left lung base. The right lung is g enerally clear with decreased airspace opacities at the right lung base. No pneumothorax. Additional findings: None. IMPRESSION: There is increased airspace opacity in the left upper lobe. There is decreased airspace opacity at t he right lung base. Signer Name: Villa Pagan Jr, MD Signed: 09/19/2020 9:01 AM Workstation Name: [id number]
[2020-09-19] MEDS: FAMOTIDINE 20 MG TAB PO SCH ×2 (09:52→22:14)
[2020-09-19] MEDS: SODIUM CHLORIDE 1 GM TAB PO SCH ×2 (09:52→23:22)
[2020-09-19] MEDS: ENOXAPARIN 40 MG/0.4 ML INJ SUB-Q SCH (09:52)
[2020-09-19] MEDS: MULTIVITAMINS ,THERAPEUTIC TAB PO SCH (09:52)
[2020-09-19] MEDS: oxyCODONE /ACETAMINOPHEN 5-325MG TAB PO PRN ×3 (10:05→22:14)
[2020-09-19 11:18] LABS: Alanine Aminotransferase 47 units/L (7-56); Albumin 3.2 g/dL (3.9-5); Blood Urea Nitrogen 12 mg/dL (9-20); Calcium 7.2 mg/dL (8.4-10.2); Hemolysis Index 16
[2020-09-19 11:26] LABS: BUN/Creatinine Ratio 20
[2020-09-19] MEDS ORDERED: VANCOMYCIN PHARMACY TO DOSE IV SCH (13:00)
--- NOTE | 2020-09-19 13:02 | Progress Note ---
Assessment and Plan Assessment and plan: #Fever Had a temperature 103 Had overnight Blood cultures drawn still pending Chest x-ray ordered shows possible pneumonia Started on IV antibiotics ID consulted #Acute hypoxic respiratory failure Now on 3 L of oxygen Stat chest x-ray ordered shows infiltrates COVID-19 test performed about 10 days ago negative Started on Lasix. proBNP ordered. Echocardiogram pending BMP results #Invasive squamous carcinoma of the lung Patient has been accepted at [facility]-accepting physician Dr. Jang Awaiting bed availability #Hypercalcemia of malignancy Nephrology on board Calcium level stable #Diabetes mellitus Lantus and lispro Diabetic diet #Hyponatremia Continue salt tablets - cut down to 1 tab BID for now due to possible fluid overload Nephrology following #DVT prophylaxis Heparin 09/08/2020 -Patient is on IV antibiotics for pneumonia -Electrolyte replacement protocol, BMP from this morning is pending -PT OT evaluation -CT head is negative for acute intracranial findings -Confusion is likely due to metabolic encephalopathy -Blood sugar is within normal limits -Nephrology is consulted for the management of hypercalcemia -ID is consulted for the management of pneumonia, suspected Covid and Covid test is pending 09/09/2020. Continue calcitonin and follow-up calcium levels. Nephrology follo wing. Follow-up SPEP and RAMYA levels. Continue antibiotics for pneumonia. Check CT of the chest, abdomen and pelvis given hypercalcemia. Check PTH related protein. Consider consultation with oncology. 09/10/2020. Chest CT revealed Large infiltrating mass in the anterior mediastinum with bony destruction of the manubrium, sternum. Oncology consultation pending. Patient with hypercalcemia of malignancy treated with calcitonin per nephrology. Antibiotics discontinued by infectious disease. Pulmonary consultation 09/11/2020. I discussed the case with CT surgery (Dr. Bush) who will gabe luate the patient for possible mediastinoscopy. Pulmonary, nephrology and oncology following. Continue calcitonin per nephrology recommendations. 09/12/2020. Patient for tissue biopsy per radiology. I discussed the case again with Dr. Bush who believes that patient is not a surgical candidate given the extensive disease/malignancy. I discussed the case with the son (ESTHER Granger number is [phone]) likely poor/grim diagnosis but await pathology of mass. Considerations for palliative/hospice care. 09/13/2020. 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 Surgery recommends tissue diagnosis with CT-guided biopsy. Radiology consulted 09/14/2020. Patient went down yesterday for CT-guided biopsy but refused. I discussed with the patient importance of the test and he states that he will do it on Wednesday. Consider hospice evaluation. Hyponatremia may be secondary to SIADH in the setting of malignancy. Follow-up BMP in a.m. Continue strict I/Os. Nephrology following. Continue pamidronate and steroids per oncology. SPEP and RAMYA normal. 09/15/2020. Hyponatremia has improved. Continue salt tabs and fluid restriction. 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 SPEP and RAMYA normal. Continue pamidronate and steroids per oncology. CT-guided biopsy planned for Wednesday at 8 AM. If patient refuses again, patient will be discharged home. Patient needs hospice evaluation. 09/16/2020. Hyponatremia is stable. Continue salt tabs and fluid restriction. 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 SPEP and RAMYA normal. Continue pamidronate and steroids per oncology. CT-guided biopsy of mediastinal mass planned for today. Pt. will likely needs hospice evaluation. 09/17. Preliminary report of mediastinal results is consistent with invasive squamous carcinoma of the lung. Discussed case with patient's son today/lung mass consistent of carcinoma. He will need urgent radiative treatment. Call placed to [facility] for possible transfer. 09/18. Lung biopsy results showed invasive squamous carcinoma. [facility] utilization review is currently reviewing case as he has no payer source. Discussed with patients lyndsey Mckinney ([phone]) 09/19. Patient is on 2 L of oxygen. Had temperature 103 F overnight. Blood cultures ordered and has been collected. Repeat chest x-ray shows some infiltrates when compared with chest x-ray performed 3 days prior. WBC also elevated. Started on IV antibiotics-cefepime and vancomycin for possible hospital-acquired pneumonia. ID has been consulted as well. Patient has been accepted at [facility] but waiting for a bed. History Interval history: Patient seen and examined at bedside Had fever 103 Fahrenheit overnight Patient is requiring 3 L of oxygen this time Chest x-ray stat ordered Labs ordered Hospitalist Physical - Physical exam Narrative exam: VITAL SIGNS: Reviewed. GENERAL: Awake HEAD: No signs of head trauma. EYES: Pupils are equal. Extraocular motions intact. MOUTH: Oropharynx is normal. NECK: No adenopathy, no JVD. CHEST: Chest with diminished breath sounds bilaterally. No wheezes, rales, or rhonchi. CARDIAC: normal S1 and S2, without murmurs, gallops, or rubs. ABDOMEN: Soft, non tender and non distended. No rebound or guarding, and no masses palpated. Bowel Sounds normal. MUSCULOSKELETAL: No edema NEUROLOGIC EXAM: Alert and oriented x3. No focal neurologic deficits SKIN: No obvious lesions - Constitutional Vitals: Temp Pulse Resp BP Pulse Ox 97.6 F 89 18 119/65 98 09/19/20 07:46 09/19/20 07:46 09/19/20 07:46 09/19/20 07:46 09/19/20 07:46 HEART Score - HEART Score Troponin: Troponin T 0.014 ng/mL (0.00-0.029) 09/07/20 15:28 Results - Labs CBC & Chem 7: 09/18/20 16:49 09/19/20 10:47 Labs: Laboratory Last Values WBC 16.5 K/mm3 (4.5-11.0) H 09/18/20 16:49 RBC 2.85 M/mm3 (3.65-5.03) L 09/18/20 16:49 Hgb 8.3 gm/dl (11.8-15.2) L 09/18/20 16:49 Hct 24.8 % (35.5-45.6) L 09/18/20 16:49 MCV 87 fl (84-94) 09/18/20 16:49 MCH 29 pg (28-32) 09/18/20 16:49 MCHC 33 % (32-34) 09/18/20 16:49 RDW 15.0 % (13.2-15.2) 09/18/20 16:49 Plt Count 308 K/mm3 (140-440) 09/18/20 16:49 Lymph % (Auto) 10.5 % (13.4-35.0) L 09/18/20 16:49 [place] % (Auto) 5.6 % (0.0-7.3) 09/18/20 16:49 Eos % (Auto) 0.2 % (0.0-4.3) 09/18/20 16:49 Baso % (Auto) 0.3 % (0.0-1.8) 09/18/20 16:49 Lymph # (Auto) 1.7 K/mm3 (1.2-5.4) 09/18/20 16:49 [place] # (Auto) 0.9 K/mm3 (0.0-0.8) H 09/18/20 16:49 Eos # (Auto) 0.0 K/mm3 (0.0-0.4) 09/18/20 16:49 Baso # (Auto) 0.0 K/mm3 (0.0-0.1) 09/18/20 16:49 Seg Neutrophils % 83.4 % (40.0-70.0) H 09/18/20 16:49 Seg Neutrophils # 13.7 K/mm3 (1.8-7.7) H 09/18/20 16:49 PT 12.6 Sec. (12.2-14.9) 09/13/20 13:17 INR 0.96 (0.87-1.13) 09/13/20 13:17 APTT 29.6 Sec. (24.2-36.6) 09/13/20 13:17 D-Dimer 472.35 ng/mlDDU (0-234) H 09/07/20 17:01 Sodium 133 mmol/L (137-145) L 09/19/20 10:47 Potassium 4.0 mmol/L (3.6-5.0) 09/19/20 10:47 Chloride 96.5 mmol/L (98-107) L 09/19/20 10:47 Carbon Dioxide 26 mmol/L (22-30) 09/19/20 10:47 Anion Gap 15 mmol/L 09/19/20 10:47 BUN 12 mg/dL (9-20) 09/19/20 10:47 Creatinine 0.6 mg/dL (0.8-1.3) L 09/19/20 10:47 Estimated GFR > 60 ml/min 09/19/20 10:47 BUN/Creatinine Ratio 20 % 09/19/20 10:47 Glucose 79 mg/dL (75-100) 09/19/20 10:47 POC Glucose 98 mg/dL (70-105) 09/18/20 20:42 Uric Acid 4.5 mg/dL (3.5-7.6) 09/13/20 05:06 Calcium 7.2 mg/dL (8.4-10.2) L 09/19/20 10:47 Magnesium 1.50 mg/dL (1.7-2.3) L 09/09/20 04:59 Ferritin 389.0 ng/mL (30.0-300.0) H 09/07/20 17:01 Total Bilirubin 0.40 mg/dL (0.1-1.2) 09/19/20 10:47 AST 58 units/L (5-40) H 09/19/20 10:47 ALT 47 units/L (7-56) 09/19/20 10:47 Alkaline Phosphatase 161 units/L (35-129) H 09/19/20 10:47 Lactate Dehydrogenase 335 units/L (91-180) H 09/07/20 17:01 Total Creatine Kinase 146 units/L (55-170) 09/07/20 15:28 Troponin T 0.014 ng/mL (0.00-0.029) 09/07/20 15:28 C-Reactive Protein 1.60 mg/dL (0.00-1.30) H 09/07/20 17:01 Serum Total Protein 6.4 g/dL (6.1-8.1) 09/08/20 09:54 Total Protein 6.5 g/dL (6.3-8.2) 09/19/20 10:47 Albumin 3.2 g/dL (3.9-5) L 09/19/20 10:47 Albumin/Globulin Ratio 1.0 % 09/19/20 10:47 Nmjho-2-Ahexugdcs 0.5 g/dL (0.2-0.3) H 09/08/20 09:54 Fgaqw-6-Eywdiknmg 0.9 g/dL (0.5-0.9) 09/08/20 09:54 Beta Globulins 0.5 g/dL (0.2-0.5) 09/08/20 09:54 Gamma Globulins 1.3 g/dL (0.8-1.7) 09/08/20 09:54 Abnorm Protein Band 1 see below 09/08/20 09:54 PEP Interpretation see below H 09/08/20 09:54 Angiotensin Convert Enz 22 U/L (9-67) 09/08/20 09:54 Carcinoembryonic Ag 3.1 ng/mL (0.0-2.4) H 09/11/20 05:18 25-OH Vitamin D Total See scanned result 09/10/20 05:15 25-Hydroxy Vitamin D2 See scanned result 09/10/20 05:15 1,25 Dihydroxy Vit D2 See scanned result 09/10/20 05:15 25-Hydroxy Vitamin D3 See scanned result 09/10/20 05:15 1,25 Dihydroxy Vit D3 See scanned result 09/10/20 05:15 Procalcitonin 0.17 ng/mL (<0.15) 09/19/20 10:47 TSH 2.730 mlU/mL (0.270-4.200) 09/07/20 15:28 Free T4 1.34 ng/dL (0.76-1.46) 09/07/20 15:28 PTH Intact 5.89 pg/mL (15-65) L 09/08/20 09:54 Urine Color Straw (Yellow) 09/07/20 21:05 Urine Turbidity Clear (Clear) 09/07/20 21:05 Urine pH 7.0 (5.0-7.0) 09/07/20 21:05 Ur Specific [place] 1.005 (1.003-1.030) 09/07/20 21:05 Urine Protein <15 mg/dl mg/dL (Negative) 09/07/20 21:05 Urine Glucose (UA) Neg mg/dL (Negative) 09/07/20 21:05 Urine Ketones Neg mg/dL (Negative) 09/07/20 21:05 Urine Blood Neg (Negative) 09/07/20 21:05 Urine Nitrite Neg (Negative) 09/07/20 21:05 Urine Bilirubin Neg (Negative) 09/07/20 21:05 Urine Urobilinogen < 2.0 mg/dL (<2.0) 09/07/20 21:05 Ur Leukocyte Esterase Neg (Negative) 09/07/20 21:05 Urine WBC (Auto) 1.0 /HPF (0.0-6.0) 09/07/20 21:05 Urine RBC (Auto) 1.0 /HPF (0.0-6.0) 09/07/20 21:05 Urine Bacteria (Auto) 1+ /HPF (Negative) 09/07/20 21:05 Urine Opiates Screen Negative 09/07/20 21:05 Urine Methadone Screen Negative 09/07/20 21:05 Ur Barbiturates Screen Negative 09/07/20 21:05 Ur Phencyclidine Scrn Negative 09/07/20 21:05 Ur Amphetamines Screen Negative 09/07/20 21:05 U Benzodiazepines Scrn Negative 09/07/20 21:05 Urine Cocaine Screen Negative 09/07/20 21:05 U Marijuana (THC) Screen Negative 09/07/20 21:05 Drugs of Abuse Note Disclamer 09/07/20 21:05 Plasma/Serum Alcohol < 0.01 % (0-0.07) 09/07/20 15:28 Coronavirus (PCR) Negative (Negative) 09/08/20 10:06 Microbiology: Microbiology 09/19/20 10:47 Peripheral/Venous Blood Culture - Preliminary Culture in Progress Monique/IV: Voiding Method Toilet Active Medications - Current Medications Current Medications: Generic Name Dose Route Start Last Admin Trade Name Freq PRN Reason Stop Dose Admin Acetaminophen 650 mg 09/08/20 11:56 Acetaminophen 325 Mg Tab PO Q6H PRN Pain, Mild (1-3) Benzocaine/Menthol 1 each 09/15/20 17:51 09/17/20 18:20 Benzocaine/Menthol Lozenge MM 1 each Q2HR PRN Administration Sore Throat Dextrose 50 ml 09/07/20 18:15 09/09/20 22:20 Dextrose 50% In Water (25gm) 50 Ml Syringe IV 50 ml Q30MIN PRN Administration Hypoglycemia Protocol Enoxaparin Sodium 40 mg 09/15/20 10:00 09/19/20 09:52 Enoxaparin 40 Mg/0.4 Ml Inj SUB-Q 40 mg QDAY CLARICE Administration Protocol Famotidine 20 mg 09/07/20 22:00 09/19/20 09:52 Famotidine 20 Mg Tab PO 20 mg BID CLARICE Administration Furosemide 40 mg 09/19/20 12:49 Furosemide 40 Mg/4 Ml Inj IV 0600,1800 CLARICE Cefepime HCl 2 gm in 100 mls @ 200 mls/hr 09/19/20 13:00 Cefepime/Ns 2 Gm/100 Ml IV Q12H [facility] Protocol Insulin Human Lispro 0 unit 09/07/20 22:00 09/19/20 12:00 Insulin Lispro 100 Unit/Ml SUB-Q Not Given ACHS [facility] Protocol Multivitamins 1 each 09/08/20 10:00 09/19/20 09:52 Multivitamins ,Therapeutic Tab PO 1 each QDAY CLARICE Administration Ondansetron HCl 4 mg 09/08/20 11:57 Ondansetron 4 Mg/2 Ml Inj IV Q8H PRN Nausea And Vomiting Oxycodone/Acetaminophen 1 tab 09/08/20 12:03 09/19/20 10:05 Oxycodone /Acetaminophen 5-325mg Tab PO 1 tab Q6H PRN Administration Pain, Moderate (4-6) Nutrition/Malnutrition Assess - Dietary Evaluation Nutrition/Malnutrition Findings: Nutrition Notes Start: 09/08/20 08:59 Freq: Status: Active Protocol: Document 09/16/20 09:45 CW (Rec: 09/16/20 09:57 CW [id number]) Nutrition Notes Initial or Follow up Reassessment Current Diagnosis Diabetes,Hypertension Other Pertinent Diagnosis PNA, Confusion Current Diet NPO Labs/Tests Na 131 K 3.4 BG 199 Ca 7.6 Pertinent Medications D50w 50 ML Solumedrol NaCl 1 g Height 5 ft 6 in Weight 60.3 kg [place] Body Weight (kg) 64.54 BMI 21.4 Weight change and time frame weight change noted; 7.8% x 6 days Weight Status Appropriate Subjective/Other Information F/U for PO intakes and ONS tolerance. Pt current NPO for procedure. PO intake prior to NPO status was excellent. Pt has a good appetite and is requesting food. However, relayed to resident that it is not possible at this time but diet will be advanced when medically feasible. BMI WNL at this time. Weight increasing. Will decrease ONS for weight stablization. Percent of energy/protein needs met: 144%/162% Burn Absent Trauma Absent GI Symptoms None Difficulty In Chewing Food Allergy No Cultural/Ethnic/Yarsani Belief [place] foods Current % PO Good (75-100%) Minimum of two criteria No physical signs of malnutrition #3 Nutrition Diagnosis No nutrition diagnosis at this time #2 Nutrition Diagnosis Inadequate oral intake Diagnosis Progress(for reassessment Resolved documentation) Is patient on ventilator? No Is Patient Ambulatory and/or Out of Bed Yes REE-([place]-St. Jeor-ambulatory/OOB) [ 1729.975 [id number]] Calculation Used for Recommendations [facility] Additional Notes Protein needs 60-72g (1-1.2g/ kg for advanced age) Fluid needs are 1ml/kcal Nutrition Intervention Change Diet Order: Continue Mechanical Soft Diet Add Supplement/Snack (indicate name/kcal Glucerna QD /protein ) Provides kCal: 220 Provides Protein (gm) 10 Goal #1 Meet at least 80% of kcal and protein needs Anticipated Discharge Needs: Mechanical soft consistent carbohydrates and ONS PRN Follow-Up By: 09/19/20 Additional Comments F/U for PO intakes and ONS
[2020-09-19] MEDS: FUROSEMIDE 40 MG/4 ML INJ IV SCH ×2 (13:35→18:00)
[2020-09-19] MEDS: CEFEPIME/NS 2 GM/100 ML 2 GM/100 ML BAG IV SCH (15:17)
[2020-09-19] MEDS: VANCOMYCIN 1,500 MG in SODIUM CHLORIDE 0.9% 500 ML 500 ML IV SCH (15:33)
--- NOTE | 2020-09-19 16:05 | Cat Scan Report ---
CT CHEST WITHOUT CONTRAST INDICATION / CLINICAL INFORMATION: Evaluate infiltrates. TECHNIQUE: Axial CT images were obtained through the chest without contrast. Sagittal and coronal reformatted im ages. All CT scans at this location are performed using CT dose reduction for ALARA by means of autom ated exposure control. COMPARISON: 09/09/2020 FINDINGS: HEART: Stable mild cardiomegaly. THORACIC AORTA: Stable mild atherosclerotic disease. MEDIASTINUM and CURT: Stable appearance of the infiltrating mass throughout the anterior mediastinum extending to the anterior chest wall. LUNGS: Small right pleural effusion has developed. Small left pleural effusion has increased in size and is now moderate. Approximately 1 cm subpleural nodule in the right middle lobe is unchanged. The right lung is clear otherwise. Compressive atelectasis has increased throughout the left lower lobe. No pneumothorax. SKELETAL SYSTEM: Destructive changes in the manubrium, sternum and left anterior ribs is unchanged. UPPER ABDOMEN: No acute process is appreciated. ADDITIONAL FINDINGS: None. IMPRESSION: Stable mild cardiomegaly. New or increased bilateral pleural effusions as described. Compressive atelectasis has developed in the left lower lobe. No new or acute infiltrate is appreciat ed. Stable appearance of the anterior mediastinal mass with extension to the anterior chest wall. Signer Name: Villa Pagan Jr, MD Signed: 09/19/2020 4:01 PM Workstation Name: [id number]
--- NOTE | 2020-09-19 17:18 | Discharge Summary ---
Providers - Providers Date of Admission: 09/07/20 17:28 Date of discharge: 09/21/20 Attending physician: DAGMAR AMATO 09/07/20 17:29 Consult to Physician [CONS] Urgent Comment: Consulting Provider: ANTONIO DREW Physician Instructions: Reason For Exam: pneumonia, covid test ordered 09/07/20 17:52 Consult to Physician [CONS] Urgent Comment: Consulting Provider: BOBBY BOOKER Physician Instructions: Reason For Exam: hypercalcemia, hypokalemia, hypomagnesemia 09/07/20 18:15 Consult to Dietitian/Nutrition [CONS] Routine Physician Instructions: Reason For Exam: Reason for Consult: Malnutrition 09/08/20 08:28 Physical Therapy Evaluation and Treat [CONS] Routine Comment: Reason For Exam: Generalized weakness 09/08/20 11:03 Occupational Therapy Evaluate and Treat [CONS] Routine Comment: Reason For Exam: weakness 09/08/20 13:24 Consult to Case Management [CONS] Routine Services Needed at Discharge: Acetylene Gas Compressor Notified:: y Comment:: discharge planning 09/10/20 08:05 Consult to Physician [CONS] Routine Comment: Consulting Provider: ARTEM ARANA Physician Instructions: Reason For Exam: malignancy 09/11/20 10:12 Consult to Physician [CONS] Routine Comment: Consulting Provider: MARIEL ANTON Physician Instructions: Reason For Exam: Mediastinal mass 09/13/20 09:18 Consult to Physician [CONS] Routine Comment: Consulting Provider: APURVA ABEBE Physician Instructions: Reason For Exam: CT guided bx of chest mass 09/19/20 12:51 Consult to Physician [CONS] Routine Comment: Consulting Provider: ANTONIO DREW Physician Instructions: Reason For Exam: Sepsis Primary care physician: [employer] Hospitalization Condition: Stable Hospital course: HPI -------- 65-year-old male with history of hypertension and diabetes noncompliant with meds was brought to the hospital with generalized weakness and fall. Patient overall is a very poor historian. Apparently he lives with his girlfriend who notified EMS. Patient complained of generalized weakness and generalized muscle skeletal pain for greater 1 year and seems to have fallen several times recently. Patient states he needs walker assistance to ambulate . He apparently fell today and expressed left hip pain to nurse however, change the site to right hip. Patient also thinks year is 1995. Patient is confused. He also admits to marijuana use. Patient primarily complains of generalized muscle skeletal pain as opposed to focal pain. Patient also denies infectious symptoms including cough or fever. In the emergency room patient is found to have left-sided pneumonia also patient potassium is 2.8 calcium is 13.2 magnesium 1.3 and albumin 3.5 and was admitted. Hospital course 09/08/2020 -Patient still on IV antibiotics for pneumonia -Electrolyte replacement protocol in place -PT OT evaluation -CT head is negative for acute intracranial findings -Confusion is likely due to metabolic encephalopathy -Blood sugar is within normal limits -Nephrology is consulted for the management of hypercalcemia -ID is consulted for the management of pneumonia, suspected Covid and Covid test is pending 09/09/2020. For hypercalcemia, he was maintained on calcitonin. SPEP and RAMYA levels sent. Continue antibiotics for pneumonia. Check CT of the chest, abdomen and pelvis given hypercalcemia. Check PTH related protein. Consider consultation with oncology. 09/10/2020. Chest CT revealed Large infiltrating mass in the anterior mediastinum with bony destruction of the manubrium, sternum. Oncology consultation pending. Patient with hypercalcemia of malignancy treated with calcitonin per nephrology. Antibiotics discontinued by infectious disease. Pulmonary consultation requested 09/11/2020. I discussed the case with CT surgery (Dr. Anton) who will evaluate the patient for possible mediastinoscopy. Pulmonary, nephrology and oncology following. Continue calcitonin per nephrology recommendations. 09/12/2020. Patient for tissue biopsy per radiology. I discussed the case again with Dr. Anton who believes that patient is not a surgical candidate given the extensive disease/malignancy. I discussed the case with the son (ESTHER Granger number is [phone]) likely poor/grim diagnosis but await pa thology of mass. Considerations for palliative/hospice care. 09/13/2020. Surgery recommends tissue diagnosis with CT-guided biopsy. Radiology consulted 09/14/2020. Patient went down yesterday for CT-guided biopsy but refused. I discussed with the patient importance of the test and he states that he will do it on Wednesday. Consider hospice evaluation. Hyponatremia may be secondary to SIADH in the setting of malignancy. Follow-up BMP in a.m. Continue strict I/Os. Nephrology following. Continue pamidronate and steroids per oncology. SPEP and RAMYA normal. 09/15/2020. Hyponatremia has improved. Continue salt tabs and fluid restriction. 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 SPEP and RAMYA normal. Continue pamidronate and steroids per oncology. CT-guided biopsy planned for Wednesday at 8 AM. If patient refuses again, patient will be discharged home. Patient needs hospice evaluation. 09/16/2020. Hyponatremia is stable. Continue salt tabs and fluid restriction. 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 Nephrology ordered urine osmolality and sodium which are pending. SPEP and RAMYA normal. Continue pamidronate and steroids per oncology. CT-guided biopsy of mediastinal mass planned for today. Pt. will likely needs hospice evaluation. 09/17. Preliminary report of mediastinal results is consistent with invasive squamous carcinoma of the lung. Discussed case with patient's son today. As per oncology, he will need urgent radiative treatment due to invasive nature of the mass and contact with the heart. He has no SVC syndrome at this time. Call placed to [facility] for possible transfer. 09/18. Lung biopsy results showed invasive squamous carcinoma. [facility] utilization review is currently reviewing case as he has no payer source. Discussed with patients lyndsey Mckinney ([phone]) 09/19. Patient is on 2 L of oxygen. Had temperature 103 F overnight. Blood cultures ordered and has been collected. Repeat chest x-ray shows some infiltrates when compared with chest x-ray performed 3 days prior. WBC also elevated. Started on IV antibiotics-cefepime and vancomycin for possible ho spital-acquired pneumonia. ID has been consulted as well. Patient has been accepted at [facility] but waiting for a bed. 09/19. Patient is on 2 L of oxygen. Had temperature 103 F overnight. Blood cultures ordered and has been collected. Repeat chest x-ray shows some infiltrates when compared with chest x-ray performed 3 days prior. WBC also elevated. Started on IV antibiotics-cefepime and vancomycin for possible hospital-acquired pneumonia. ID has been consulted as well. Patient has been accepted at [facility] but waiting for a bed. 09/20. Afebrile overnight. Now on antibiotics. Blood culture pending. ID consulted. On lasix 40 mg BID - probnp is >7k. Echocardiogram ordered. 09/21. Afebrile overnight. Chest xray shows slight improvement. Remains on antibiotics. On lasix IV. Echo done but results pending. I have discussed with [facility] transfer center and I was told the patient has been offered a bed. A patient return agreement has been signed. He will be transferred to [facility] for radiation treatment. He agrees with plan Echo results shows severe systolic dysfunction with EF 15 - 20%. No previous echo to compare with Disposition: DC/TX-70 ANOTHER TYPE HLTHCARE Time spent for discharge: 45 mins - Discharge Diagnoses (1) Hypercalcemia Status: Acute (2) Lung cancer Status: Acute (3) Chronic hypertension Status: Acute (4) Confusion Status: Acute (5) Generalized weakness Status: Acute (6) Pneumonia Status: Acute Core Measure Documentation - Palliative Care Palliative Care/ Comfort Measures: Not Applicable - Core Measures Any of the following diagnoses?: none Exam - Physical Exam Narrative exam: VITAL SIGNS: Reviewed. GENERAL: Awake HEAD: No signs of head trauma. EYES: Pupils are equal. Extraocular motions intact. MOUTH: Oropharynx is normal. NECK: No adenopathy, no JVD. CHEST: Chest with diminished breath sounds bilaterally. No wheezes, rales, or rhonchi. CARDIAC: normal S1 and S2, without murmurs, gallops, or rubs. ABDOMEN: Soft, non tender and non distended. No rebound or guarding, and no masses palpated. Bowel Sounds normal. MUSCULOSKELETAL: No edema NEUROLOGIC EXAM: Alert and oriented x3. No focal neurologic deficits SKIN: No obvious lesions - Constitutional Vitals: Temp Pulse Resp BP Pulse Ox 97.6 F 89 18 119/65 98 09/19/20 07:46 09/19/20 07:46 09/19/20 07:46 09/19/20 07:46 09/19/20 07:46 Plan Follow up with: PRIMARY MD TRISH [Primary Care Provider] - 3-5 Days
[2020-09-20] MEDS: CEFEPIME/NS 2 GM/100 ML 2 GM/100 ML BAG IV SCH ×2 (02:15→18:09)
[2020-09-20] MEDS: VANCOMYCIN 1,500 MG in SODIUM CHLORIDE 0.9% 500 ML 500 ML IV SCH (02:32)
[2020-09-20] MEDS: FUROSEMIDE 40 MG/4 ML INJ IV SCH ×2 (05:45→18:10)
[2020-09-20] MEDS: oxyCODONE /ACETAMINOPHEN 5-325MG TAB PO PRN ×2 (05:50→16:39)
[2020-09-20 06:50] LABS: Basophils % (Auto) 0.1 % (0.0-1.8); Eosinophils % (Auto) 0.3 % (0.0-4.3); Hematocrit 24.8 % (35.5-45.6); Hemoglobin 8.2 gm/dl (11.8-15.2); Lymphocytes # (Auto) 1.9 K/mm3 (1.2-5.4); Lymphocytes % (Auto) 12.4 % (13.4-35.0); Mean Corpuscular HGB Conc 33 % (32-34); Mean Corpuscular Volume 86 fl (84-94); Monocytes # (Auto) 0.7 K/mm3 (0.0-0.8); Monocytes % (Auto) 4.9 % (0.0-7.3); Platelet Count 378 K/mm3 (140-440); Red Blood Count 2.87 M/mm3 (3.65-5.03); Red Cell Distribution Width 15.2 % (13.2-15.2)
[2020-09-20 07:07] LABS: Alanine Aminotransferase 36 units/L (7-56); Albumin 2.9 g/dL (3.9-5); BUN/Creatinine Ratio 23; Blood Urea Nitrogen 14 mg/dL (9-20); Calcium 6.6 mg/dL (8.4-10.2); Hemolysis Index 0
--- NOTE | 2020-09-20 08:27 | XRay Report ---
CHEST - 1 VIEW 0729 hours INDICATION: Pulmonary edema COMPARISON: Yesterday FINDINGS: Support devices: None Heart: Stable cardiomediastinal silhouette. Lungs/pleura: Stable bilateral lung opacities, left greater than right. Small pleural effusions are suspected which are unchanged. No pneumothorax. Additional findings: None. IMPRESSION: Unchanged exam. Signer Name: Villa Pagan Jr, MD Signed: 09/20/2020 8:23 AM Workstation Name: [id number]
[2020-09-20] MEDS: INSULIN LISPRO 100 UNIT/ML SUB-Q SCH ×4 (08:36→22:12)
[2020-09-20] MEDS: ENOXAPARIN 40 MG/0.4 ML INJ SUB-Q SCH (10:04)
[2020-09-20] MEDS: FAMOTIDINE 20 MG TAB PO SCH ×2 (10:05→22:14)
[2020-09-20] MEDS: SODIUM CHLORIDE 1 GM TAB PO SCH ×2 (10:05→22:17)
[2020-09-20] MEDS: MULTIVITAMINS ,THERAPEUTIC TAB PO SCH (10:05)
--- NOTE | 2020-09-20 11:53 | Progress Note ---
Assessment and Plan Assessment and plan: #Sepsis 2/ HAP Blood cultures drawn still pending Started on IV antibiotics ID consulted #Acute hypoxic respiratory failure Now on 3 L of oxygen Stat chest x-ray ordered shows infiltrates COVID-19 test performed about 10 days ago negative Started on Lasix. proBNP >7k. Echocardiogram ordered #Invasive squamous carcinoma of the lung Patient has been accepted at [facility]-accepting physician is Dr. Jang Awaiting bed availability #Hypercalcemia of malignancy Nephrology on board Monitor calcium levels #Diabetes mellitus Lantus and lispro Diabetic diet #Hyponatremia Continue salt tablets - cut down to 1 tab BID for now due to possible fluid overload Nephrology following #DVT prophylaxis Heparin 09/08/2020 -Patient is on IV antibiotics for pneumonia -Electrolyte replacement protocol, BMP from this morning is pending -PT OT evaluation -CT head is negative for acute intracranial findings -Confusion is likely due to metabolic encephalopathy -Blood sugar is within normal limits -Nephrology is consulted for the management of hypercalcemia -ID is consulted for the management of pneumonia, suspected Covid and Covid test is pending 09/09/2020. Continue calcitonin and follow-up calcium levels. Nephrology following. Follow-up SPEP and RAMYA levels. Continue antibiotics for pneumonia. Check CT of the chest, abdomen and pelvis given hypercalcemia. Check PTH related protein. Consider consultation with oncology. 09/10/2020. Chest CT revealed Large infiltrating mass in the anterior mediasti num with bony destruction of the manubrium, sternum. Oncology consultation pending. Patient with hypercalcemia of malignancy treated with calcitonin per nephrology. Antibiotics discontinued by infectious disease. Pulmonary consultation 09/11/2020. I discussed the case with CT surgery (Dr. Bush) who will evaluate the patient for possible mediastinoscopy. Pulmonary, nephrology and oncology following. Continue calcitonin per nephrology recommendations. 09/12/2020. Patient for tissue biopsy per radiology. I discussed the case again with Dr. Bush who believes that patient is not a surgical candidate given the extensive disease/malignancy. I discussed the case with the son (ESTHER Granger number is [phone]) likely poor/grim diagnosis but await pathology of mass. Considerations for palliative/hospice care. 09/13/2020. 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 Surgery recommends tissue diagnosis with CT-guided biopsy. Radiology consulted 09/14/2020. Patient went down yesterday for CT-guided biopsy but refused. I discussed with the patient importance of the test and he states that he will do it on Wednesday. Consider hospice evaluation. Hyponatremia may be secondary to SIADH in the setting of malignancy. Follow-up BMP in a.m. Continue strict I/Os. Nephrology following. Continue pamidronate and steroids per oncology. SPEP and RAMYA normal. 09/15/2020. Hyponatremia has improved. Continue salt tabs and fluid restriction. 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 SPEP and RAMYA normal. Continue pamidronate and steroids per oncology. CT-guided biopsy planned for Wednesday at 8 AM. If patient refuses again, patient will be discharged home. Patient needs hospice evaluation. 09/16/2020. Hyponatremia is stable. Continue salt tabs and fluid restriction. 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 SPEP and RAMYA normal. Continue pamidronate and steroids per oncology. CT-guided biopsy of mediastinal mass planned for today. Pt. will likely needs hospice evaluation. 09/17. Preliminary report of mediastinal results is consistent with invasive squamous carcinoma of the lung. Discussed case with patient's son today/lung mass consistent of carcinoma. He will need urgent radiative treatment. Call placed to [facility] for possible transfer. 09/18. Lung biopsy results showed invasive squamous carcinoma. [facility] utilization review is currently reviewing case as he has no payer source. Discussed with patients lyndsey Mckinney ([phone]) 09/19. Patient is on 2 L of oxygen. Had temperature 103 F overnight. Blood cultures ordered and has been collected. Repeat chest x-ray shows some infiltrates when compared with chest x-ray performed 3 days prior. WBC also elevated. Started on IV antibiotics-cefepime and vancomycin for possible hospital-acquired pneumonia. ID has been consulted as well. Patient has been accepted at [facility] but waiting for a bed. 09/20. Afebrile overnight. Now on antibiotics. Blood culture pending. ID consulted. On lasix 40 mg BID - probnp is >7k. Echocardiogram ordered. History Interval history: Feels better Still waiting for transfer to [facility] Hospitalist Physical - Physical exam Narrative exam: VITAL SIGNS: Reviewed. GENERAL: Awake HEAD: No signs of head trauma. EYES: Pupils are equal. Extraocular motions intact. MOUTH: Oropharynx is normal. NECK: No adenopathy, no JVD. CHEST: some rales CARDIAC: normal S1 and S2, without murmurs, gallops, or rubs. ABDOMEN: Soft, non tender and non distended. No rebound or guarding, and no masses palpated. Bowel Sounds normal. MUSCULOSKELETAL: No edema NEUROLOGIC EXAM: Alert and oriented x3. No focal neurologic deficits SKIN: No obvious lesions - Constitutional Vitals: Temp Pulse Resp BP Pulse Ox 98.1 F 98 H 20 121/83 97 09/20/20 07:51 09/20/20 07:51 09/20/20 07:51 09/20/20 07:51 09/20/20 07:51 HEART Score - HEART Score Troponin: Troponin T 0.014 ng/mL (0.00-0.029) 09/07/20 15:28 Results - Labs CBC & Chem 7: 09/20/20 06:18 09/20/20 06:18 Labs: Laboratory Last Values WBC 15.0 K/mm3 (4.5-11.0) H 09/20/20 06:18 RBC 2.87 M/mm3 (3.65-5.03) L 09/20/20 06:18 Hgb 8.2 gm/dl (11.8-15.2) L 09/20/20 06:18 Hct 24.8 % (35.5-45.6) L 09/20/20 06:18 MCV 86 fl (84-94) 09/20/20 06:18 MCH 29 pg (28-32) 09/20/20 06:18 MCHC 33 % (32-34) 09/20/20 06:18 RDW 15.2 % (13.2-15.2) 09/20/20 06:18 Plt Count 378 K/mm3 (140-440) 09/20/20 06:18 Lymph % (Auto) 12.4 % (13.4-35.0) L 09/20/20 06:18 [place] % (Auto) 4.9 % (0.0-7.3) 09/20/20 06:18 Eos % (Auto) 0.3 % (0.0-4.3) 09/20/20 06:18 Baso % (Auto) 0.1 % (0.0-1.8) 09/20/20 06:18 Lymph # (Auto) 1.9 K/mm3 (1.2-5.4) 09/20/20 06:18 [place] # (Auto) 0.7 K/mm3 (0.0-0.8) 09/20/20 06:18 Eos # (Auto) 0.0 K/mm3 (0.0-0.4) 09/20/20 06:18 Baso # (Auto) 0.0 K/mm3 (0.0-0.1) 09/20/20 06:18 Seg Neutrophils % 82.3 % (40.0-70.0) H 09/20/20 06:18 Seg Neutrophils # 12.3 K/mm3 (1.8-7.7) H 09/20/20 06:18 PT 12.6 Sec. (12.2-14.9) 09/13/20 13:17 INR 0.96 (0.87-1.13) 09/13/20 13:17 APTT 29.6 Sec. (24.2-36.6) 09/13/20 13:17 D-Dimer 472.35 ng/mlDDU (0-234) H 09/07/20 17:01 Sodium 125 mmol/L (137-145) L D 09/20/20 06:18 Potassium 3.8 mmol/L (3.6-5.0) 09/20/20 06:18 Chloride 90.7 mmol/L (98-107) L 09/20/20 06:18 Carbon Dioxide 23 mmol/L (22-30) 09/20/20 06:18 Anion Gap 15 mmol/L 09/20/20 06:18 BUN 14 mg/dL (9-20) 09/20/20 06:18 Creatinine 0.6 mg/dL (0.8-1.3) L 09/20/20 06:18 Estimated GFR > 60 ml/min 09/20/20 06:18 BUN/Creatinine Ratio 23 % 09/20/20 06:18 Glucose 140 mg/dL (75-100) H 09/20/20 06:18 POC Glucose 120 mg/dL (70-105) H 09/20/20 07:47 Uric Acid 4.5 mg/dL (3.5-7.6) 09/13/20 05:06 Calcium 6.6 mg/dL (8.4-10.2) L 09/20/20 06:18 Magnesium 1.50 mg/dL (1.7-2.3) L 09/09/20 04:59 Ferritin 389.0 ng/mL (30.0-300.0) H 09/07/20 17:01 Total Bilirubin 0.20 mg/dL (0.1-1.2) 09/20/20 06:18 AST 34 units/L (5-40) 09/20/20 06:18 ALT 36 units/L (7-56) 09/20/20 06:18 Alkaline Phosphatase 157 units/L (35-129) H 09/20/20 06:18 Lactate Dehydrogenase 335 units/L (91-180) H 09/07/20 17:01 Total Creatine Kinase 146 units/L (55-170) 09/07/20 15:28 Troponin T 0.014 ng/mL (0.00-0.029) 09/07/20 15:28 C-Reactive Protein 1.60 mg/dL (0.00-1.30) H 09/07/20 17:01 NT-Pro-B Natriuret Pep 7924 pg/mL (0-900) H 09/20/20 06:18 Serum Total Protein 6.4 g/dL (6.1-8.1) 09/08/20 09:54 Total Protein 6.0 g/dL (6.3-8.2) L 09/20/20 06:18 Albumin 2.9 g/dL (3.9-5) L 09/20/20 06:18 Albumin/Globulin Ratio 0.9 % 09/20/20 06:18 Tgrqb-6-Nsqhpxldp 0.5 g/dL (0.2-0.3) H 09/08/20 09:54 Uvysq-6-Mqayzqrvj 0.9 g/dL (0.5-0.9) 09/08/20 09:54 Beta Globulins 0.5 g/dL (0.2-0.5) 09/08/20 09:54 Gamma Globulins 1.3 g/dL (0.8-1.7) 09/08/20 09:54 Abnorm Protein Band 1 see below 09/08/20 09:54 PEP Interpretation see below H 09/08/20 09:54 Angiotensin Convert Enz 22 U/L (9-67) 09/08/20 09:54 Carcinoembryonic Ag 3.1 ng/mL (0.0-2.4) H 09/11/20 05:18 25-OH Vitamin D Total See scanned result 09/10/20 05:15 25-Hydroxy Vitamin D2 See scanned result 09/10/20 05:15 1,25 Dihydroxy Vit D2 See scanned result 09/10/20 05:15 25-Hydroxy Vitamin D3 See scanned result 09/10/20 05:15 1,25 Dihydroxy Vit D3 See scanned result 09/10/20 05:15 Procalcitonin 0.24 ng/mL (<0.15) 09/20/20 06:18 TSH 2.730 mlU/mL (0.270-4.200) 09/07/20 15:28 Free T4 1.34 ng/dL (0.76-1.46) 09/07/20 15:28 PTH Intact 5.89 pg/mL (15-65) L 09/08/20 09:54 Urine Color Straw (Yellow) 09/07/20 21:05 Urine Turbidity Clear (Clear) 09/07/20 21:05 Urine pH 7.0 (5.0-7.0) 09/07/20 21:05 Ur Specific [place] 1.005 (1.003-1.030) 09/07/20 21:05 Urine Protein <15 mg/dl mg/dL (Negative) 09/07/20 21:05 Urine Glucose (UA) Neg mg/dL (Negative) 09/07/20 21:05 Urine Ketones Neg mg/dL (Negative) 09/07/20 21:05 Urine Blood Neg (Negative) 09/07/20 21:05 Urine Nitrite Neg (Negative) 09/07/20 21:05 Urine Bilirubin Neg (Negative) 09/07/20 21:05 Urine Urobilinogen < 2.0 mg/dL (<2.0) 09/07/20 21:05 Ur Leukocyte Esterase Neg (Negative) 09/07/20 21:05 Urine WBC (Auto) 1.0 /HPF (0.0-6.0) 09/07/20 21:05 Urine RBC (Auto) 1.0 /HPF (0.0-6.0) 09/07/20 21:05 Urine Bacteria (Auto) 1+ /HPF (Negative) 09/07/20 21:05 Urine Opiates Screen Negative 09/07/20 21:05 Urine Methadone Screen Negative 09/07/20 21:05 Ur Barbiturates Screen Negative 09/07/20 21:05 Ur Phencyclidine Scrn Negative 09/07/20 21:05 Ur Amphetamines Screen Negative 09/07/20 21:05 U Benzodiazepines Scrn Negative 09/07/20 21:05 Urine Cocaine Screen Negative 09/07/20 21:05 U Marijuana (THC) Screen Negative 09/07/20 21:05 Drugs of Abuse Note Disclamer 09/07/20 21:05 Plasma/Serum Alcohol < 0.01 % (0-0.07) 09/07/20 15:28 Coronavirus (PCR) Negative (Negative) 09/08/20 10:06 Microbiology: Microbiology 09/19/20 10:47 Peripheral/Venous Blood Culture - Preliminary NO GROWTH AFTER 24 HOURS 09/19/20 12:08 Peripheral/Venous Blood Culture - Preliminary Culture in Progress Monique/IV: Voiding Method Toilet Active Medications - Current Medications Current Medications: Generic Name Dose Route Start Last Admin Trade Name Freq PRN Reason Stop Dose Admin Acetaminophen 650 mg 09/08/20 11:56 Acetaminophen 325 Mg Tab PO Q6H PRN Pain, Mild (1-3) Benzocaine/Menthol 1 each 09/15/20 17:51 09/17/20 18:20 Benzocaine/Menthol Lozenge MM 1 each Q2HR PRN Administration Sore Throat Dextrose 50 ml 09/07/20 18:15 09/09/20 22:20 Dextrose 50% In Water (25gm) 50 Ml Syringe IV 50 ml Q30MIN PRN Administration Hypoglycemia Protocol Enoxaparin Sodium 40 mg 09/15/20 10:00 09/20/20 10:04 Enoxaparin 40 Mg/0.4 Ml Inj SUB-Q 40 mg QDAY CLARICE Administration Protocol Famotidine 20 mg 09/07/20 22:00 09/20/20 10:05 Famotidine 20 Mg Tab PO 20 mg BID CLARICE Administration Furosemide 40 mg 09/19/20 13:49 09/20/20 05:45 Furosemide 40 Mg/4 Ml Inj IV 40 mg 0600,1800 CLARICE Administration Cefepime HCl 2 gm in 100 mls @ 200 mls/hr 09/19/20 14:00 09/20/20 02:15 Cefepime/Ns 2 Gm/100 Ml IV 200 mls/hr Q12H CLARICE Administration Protocol Vancomycin HCl 1 gm in 250 mls @ 167.007 mls/hr 09/20/20 14:00 Vancomycin/Ns 1 Gm/250 Ml IV Q12H CLARICE Insulin Human Lispro 0 unit 09/07/20 22:00 09/20/20 11:32 Insulin Lispro 100 Unit/Ml SUB-Q Not Given ACHS [facility] Protocol Multivitamins 1 each 09/08/20 10:00 09/20/20 10:05 Multivitamins ,Therapeutic Tab PO 1 each QDAY CLARICE Administration Ondansetron HCl 4 mg 09/08/20 11:57 Ondansetron 4 Mg/2 Ml Inj IV Q8H PRN Nausea And Vomiting Oxycodone/Acetaminophen 1 tab 09/08/20 12:03 09/20/20 05:50 Oxycodone /Acetaminophen 5-325mg Tab PO 1 tab Q6H PRN Administration Pain, Moderate (4-6) Sodium Chloride 1 gm 09/19/20 22:00 09/20/20 10:05 Sodium Chloride 1 Gm Tab PO 1 gm BID CLARICE Administration Nutrition/Malnutrition Assess - Dietary Evaluation Nutrition/Malnutrition Findings: Nutrition Notes Start: 09/08/20 08:59 Freq: Status: Active Protocol: Document 09/16/20 09:45 CW (Rec: 09/16/20 09:57 CW [id number]) Nutrition Notes Initial or Follow up Reassessment Current Diagnosis Diabetes,Hypertension Other Pertinent Diagnosis PNA, Confusion Current Diet NPO Labs/Tests Na 131 K 3.4 BG 199 Ca 7.6 Pertinent Medications D50w 50 ML Solumedrol NaCl 1 g Height 5 ft 6 in Weight 60.3 kg [place] Body Weight (kg) 64.54 BMI 21.4 Weight change and time frame weight change noted; 7.8% x 6 days Weight Status Appropriate Subjective/Other Information F/U for PO intakes and ONS tolerance. Pt current NPO for procedure. PO intake prior to NPO status was excellent. Pt has a good appetite and is requesting food. However, relayed to resident that it is not possible at this time but diet will be advanced when medically feasible. BMI WNL at this time. Weight increasing. Will decrease ONS for weight stablization. Percent of energy/protein needs met: 144%/162% Burn Absent Trauma Absent GI Symptoms None Difficulty In Chewing Food Allergy No Cultural/Ethnic/Worship Belief [place] foods Current % PO Good (75-100%) Minimum of two criteria No physical signs of malnutrition #3 Nutrition Diagnosis No nutrition diagnosis at this time #2 Nutrition Diagnosis Inadequate oral intake Diagnosis Progress(for reassessment Resolved documentation) Is patient on ventilator? No Is Patient Ambulatory and/or Out of Bed Yes REE-([facility]-ambulatory/OOB) [ 1729.975 [id number]] Calculation Used for Recommendations [facility] Additional Notes Protein needs 60-72g (1-1.2g/ kg for advanced age) Fluid needs are 1ml/kcal Nutrition Intervention Change Diet Order: Continue Mechanical Soft Diet Add Supplement/Snack (indicate name/kcal Glucerna QD /protein ) Provides kCal: 220 Provides Protein (gm) 10 Goal #1 Meet at least 80% of kcal and protein needs Anticipated Discharge Needs: Mechanical soft consistent carbohydrates and ONS PRN Follow-Up By: 09/19/20 Additional Comments F/U for PO intakes and ONS
[2020-09-20] MEDS: VANCOMYCIN/NS 1 GM/250 ML 1 GM/250 ML BAG IV SCH (16:02)
--- NOTE | 2020-09-20 16:40 | Progress Note ---
Assessment and Plan Impression: * Hypercalcemia --PTH appropriately suppressed. SPEP WNL. RAMYA WNL * Anterior mediastinal mass * Hypokalemia * Hypomagnesemia * Hyponatremia * PNA * Failure to thrive * Type 2 diabetes melliuts * Hypertension Plan: * Decline in sodium noted to 125 from 133 - likely due to IV lasix which was resumed yesterday by primary team * Also noted, NaCl tablets reduced to 1 TID by primary team * Abx per primary team * Malignancy workup in progress. Pulmonary and oncology recommendations noted. Awaiting transfer * Holding calcitonin * Replete lytes prn * Strict I/O * Will sign off - defer management of hyponatremia to primary team. Please re consult if needed Subjective Date of service: 09/20/20 Principal diagnosis: hypercalcemia, weakness Interval history: Chart reviewed. No acute events overnight. Objective - Exam Narrative Exam: Deferred - Vital Signs Vital signs: Vital Signs - 12hr 09/20/20 07:51 Temperature 98.1 F Pulse Rate 98 H Respiratory 20 Rate Blood Pressure 121/83 O2 Sat by Pulse 97 Oximetry - Lab 09/20/20 06:18 09/20/20 06:18 Most recent lab results Calcium 6.6 mg/dL (8.4-10.2) L 09/20/20 06:18 Magnesium 1.50 mg/dL (1.7-2.3) L 09/09/20 04:59 Medications & Allergies - Medications Allergies/Adverse Reactions: Allergies No Known Allergies Allergy (Unverified 09/07/20 14:22) Home Medications: Home Medications Medication Instructions Recorded Confirmed Last Taken Type Unobtainable 09/10/20 09/10/20 Unknown History Active Medications: Generic Name Dose Route Start Last Admin Trade Name Freq PRN Reason Stop Dose Admin Acetaminophen 650 mg 09/08/20 11:56 Acetaminophen 325 Mg Tab PO Q6H PRN Pain, Mild (1-3) Benzocaine/Menthol 1 each 09/15/20 17:51 09/17/20 18:20 Benzocaine/Menthol Lozenge MM 1 each Q2HR PRN Administration Sore Throat Dextrose 50 ml 09/07/20 18:15 09/09/20 22:20 Dextrose 50% In Water (25gm) 50 Ml Syringe IV 50 ml Q30MIN PRN Administration Hypoglycemia Protocol Enoxaparin Sodium 40 mg 09/15/20 10:00 09/20/20 10:04 Enoxaparin 40 Mg/0.4 Ml Inj SUB-Q 40 mg QDAY CLARICE Administration Protocol Famotidine 20 mg 09/07/20 22:00 09/20/20 10:05 Famotidine 20 Mg Tab PO 20 mg BID CLARICE Administration Furosemide 40 mg 09/19/20 13:49 09/20/20 05:45 Furosemide 40 Mg/4 Ml Inj IV 40 mg 0600,1800 CLARICE Administration Cefepime HCl 2 gm in 100 mls @ 200 mls/hr 09/19/20 14:00 09/20/20 02:15 Cefepime/Ns 2 Gm/100 Ml IV 200 mls/hr Q12H CLARICE Administration Protocol Vancomycin HCl 1 gm in 250 mls @ 167.007 mls/hr 09/20/20 14:00 09/20/20 16:02 Vancomycin/Ns 1 Gm/250 Ml IV 167.007 mls/hr Q12H CLARICE Administration Insulin Human Lispro 0 unit 09/07/20 22:00 09/20/20 11:32 Insulin Lispro 100 Unit/Ml SUB-Q Not Given ACHS CLARICE Protocol Multivitamins 1 each 09/08/20 10:00 09/20/20 10:05 Multivitamins ,Therapeutic Tab PO 1 each QDAY CLARICE Administration Ondansetron HCl 4 mg 09/08/20 11:57 Ondansetron 4 Mg/2 Ml Inj IV Q8H PRN Nausea And Vomiting Oxycodone/Acetaminophen 1 tab 09/08/20 12:03 09/20/20 05:50 Oxycodone /Acetaminophen 5-325mg Tab PO 1 tab Q6H PRN Administration Pain, Moderate (4-6) Sodium Chloride 1 gm 09/19/20 22:00 09/20/20 10:05 Sodium Chloride 1 Gm Tab PO 1 gm BID CLARICE Administration
[2020-09-21] MEDS: VANCOMYCIN/NS 1 GM/250 ML 1 GM/250 ML BAG IV SCH ×2 (02:42→13:09)
[2020-09-21] MEDS: CEFEPIME/NS 2 GM/100 ML 2 GM/100 ML BAG IV SCH ×2 (02:42→13:09)
[2020-09-21] MEDS: FUROSEMIDE 40 MG/4 ML INJ IV SCH (05:59)
[2020-09-21] MEDS: INSULIN LISPRO 100 UNIT/ML SUB-Q SCH ×2 (07:30→11:30)
[2020-09-21 09:18] VITALS: BP 133/93
--- NOTE | 2020-09-21 09:35 | XRay Report ---
CHEST 1 VIEW INDICATION: Pulmonary edema. COMPARISON: One day prior. FINDINGS: Support devices: None. Heart: Stable. Lungs/Pleura: Pulmonary opacities and pleural effusions, left greater than right, are relatively stab le. No pneumothorax. IMPRESSION: 1. No significant change. Signer Name: Nickolas King MD Signed: 09/21/2020 9:30 AM Workstation Name: [id number]
[2020-09-21 09:56] LABS: Basophils % (Auto) 0.4 % (0.0-1.8); Eosinophils % (Auto) 0.4 % (0.0-4.3); Hematocrit 29.5 % (35.5-45.6); Hemoglobin 9.9 gm/dl (11.8-15.2); Lymphocytes # (Auto) 1.3 K/mm3 (1.2-5.4); Mean Corpuscular HGB Conc 34 % (32-34); Mean Corpuscular Volume 87 fl (84-94); Monocytes # (Auto) 0.6 K/mm3 (0.0-0.8); Platelet Count 397 K/mm3 (140-440); Red Blood Count 3.38 M/mm3 (3.65-5.03)
[2020-09-21] MEDS: ENOXAPARIN 40 MG/0.4 ML INJ SUB-Q SCH (09:56)
[2020-09-21] MEDS: MULTIVITAMINS ,THERAPEUTIC TAB PO SCH (09:56)
[2020-09-21] MEDS: FAMOTIDINE 20 MG TAB PO SCH (09:56)
[2020-09-21] MEDS: SODIUM CHLORIDE 1 GM TAB PO SCH (10:05)
[2020-09-21 10:09] LABS: Alanine Aminotransferase 34 units/L (7-56); Albumin 2.7 g/dL (3.9-5); Blood Urea Nitrogen 12 mg/dL (9-20); Calcium 6.7 mg/dL (8.4-10.2); Hemolysis Index 31
[2020-09-21 10:10] LABS: BUN/Creatinine Ratio 20
--- NOTE | 2020-09-21 11:25 | Progress Note ---
Assessment and Plan Assessment and plan: #Sepsis 2/ HAP Blood cultures drawn still pending Started on IV antibiotics ID consulted #Acute hypoxic respiratory failure Now on 3 L of oxygen Stat chest x-ray ordered shows infiltrates COVID-19 test performed about 10 days ago negative Started on Lasix. proBNP >7k. Echocardiogram ordered #Invasive squamous carcinoma of the lung Patient has been accepted at [facility]-accepting physician is Dr. Jang Awaiting bed availability #Hypercalcemia of malignancy Nephrology on board Monitor calcium levels #Diabetes mellitus Lantus and lispro Diabetic diet #Hyponatremia Continue salt tablets - cut down to 1 tab BID for now due to possible fluid overload Nephrology following #DVT prophylaxis Heparin 09/08/2020 -Patient is on IV antibiotics for pneumonia -Electrolyte replacement protocol, BMP from this morning is pending -PT OT evaluation -CT head is negative for acute intracranial findings -Confusion is likely due to metabolic encephalopathy -Blood sugar is within normal limits -Nephrology is consulted for the management of hypercalcemia -ID is consulted for the management of pneumonia, suspected Covid and Covid test is pending 09/09/2020. Continue calcitonin and follow-up calcium levels. Nephrology following. Follow-up SPEP and RAMYA levels. Continue antibiotics for pneumonia. Check CT of the chest, abdomen and pelvis given hypercalcemia. Check PTH related protein. Consider consultation with oncology. 09/10/2020. Chest CT revealed Large infiltrating mass in the anterior mediasti num with bony destruction of the manubrium, sternum. Oncology consultation pending. Patient with hypercalcemia of malignancy treated with calcitonin per nephrology. Antibiotics discontinued by infectious disease. Pulmonary consultation 09/11/2020. I discussed the case with CT surgery (Dr. Bush) who will evaluate the patient for possible mediastinoscopy. Pulmonary, nephrology and oncology following. Continue calcitonin per nephrology recommendations. 09/12/2020. Patient for tissue biopsy per radiology. I discussed the case again with Dr. Bush who believes that patient is not a surgical candidate given the extensive disease/malignancy. I discussed the case with the son (ESTHER Granger number is [phone]) likely poor/grim diagnosis but await pathology of mass. Considerations for palliative/hospice care. 09/13/2020. 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 Surgery recommends tissue diagnosis with CT-guided biopsy. Radiology consulted 09/14/2020. Patient went down yesterday for CT-guided biopsy but refused. I discussed with the patient importance of the test and he states that he will do it on Wednesday. Consider hospice evaluation. Hyponatremia may be secondary to SIADH in the setting of malignancy. Follow-up BMP in a.m. Continue strict I/Os. Nephrology following. Continue pamidronate and steroids per oncology. SPEP and RAMYA normal. 09/15/2020. Hyponatremia has improved. Continue salt tabs and fluid restriction. 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 SPEP and RAMYA normal. Continue pamidronate and steroids per oncology. CT-guided biopsy planned for Wednesday at 8 AM. If patient refuses again, patient will be discharged home. Patient needs hospice evaluation. 09/16/2020. Hyponatremia is stable. Continue salt tabs and fluid restriction. 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 SPEP and RAMYA normal. Continue pamidronate and steroids per oncology. CT-guided biopsy of mediastinal mass planned for today. Pt. will likely needs hospice evaluation. 09/17. Preliminary report of mediastinal results is consistent with invasive squamous carcinoma of the lung. Discussed case with patient's son today/lung mass consistent of carcinoma. He will need urgent radiative treatment. Call placed to [facility] for possible transfer. 09/18. Lung biopsy results showed invasive squamous carcinoma. [facility] utilization review is currently reviewing case as he has no payer source. Discussed with patients lyndsey Mckinney ([phone]) 09/19. Patient is on 2 L of oxygen. Had temperature 103 F overnight. Blood cultures ordered and has been collected. Repeat chest x-ray shows some infiltrates when compared with chest x-ray performed 3 days prior. WBC also elevated. Started on IV antibiotics-cefepime and vancomycin for possible hospital-acquired pneumonia. ID has been consulted as well. Patient has been accepted at [facility] but waiting for a bed. 09/20. Afebrile overnight. Now on antibiotics. Blood culture pending. ID consulted. On lasix 40 mg BID - probnp is >7k. Echocardiogram ordered. 09/21. Afebrile overnight. Chest xray shows slight improvement. Remains on antibiotics. On lasix IV. Echo done but results pending. Still waiting for a bed to be available at [facility]. History Interval history: Feels better today Remains on antibiotics Still waiting for transfer to [facility] Hospital[facility] Physical - Physical exam Narrative exam: VITAL SIGNS: Reviewed. GENERAL: Awake HEAD: No signs of head trauma. EYES: Pupils are equal. Extraocular motions intact. MOUTH: Oropharynx is normal. NECK: No adenopathy, no JVD. CHEST: Somes rales on the right. Diminished breath sounds on the left CARDIAC: normal S1 and S2, without murmurs, gallops, or rubs. ABDOMEN: Soft, non tender and non distended. No rebound or guarding, and no masses palpated. Bowel Sounds normal. MUSCULOSKELETAL: No edema NEUROLOGIC EXAM: Alert and oriented x3. No focal neurologic deficits SKIN: No obvious lesions - Constitutional Vitals: Temp Pulse Resp BP Pulse Ox 98.5 F 105 H 18 133/93 97 09/21/20 09:03 09/21/20 09:03 09/21/20 00:24 09/21/20 09:03 09/21/20 09:03 HEART Score - HEART Score Troponin: Troponin T 0.014 ng/mL (0.00-0.029) 09/07/20 15:28 Results - Labs CBC & Chem 7: 09/21/20 09:19 09/21/20 09:19 Labs: Laboratory Last Values WBC 9.5 K/mm3 (4.5-11.0) 09/21/20 09:19 RBC 3.38 M/mm3 (3.65-5.03) L 09/21/20 09:19 Hgb 9.9 gm/dl (11.8-15.2) L 09/21/20 09:19 Hct 29.5 % (35.5-45.6) L 09/21/20 09:19 MCV 87 fl (84-94) 09/21/20 09:19 MCH 29 pg (28-32) 09/21/20 09:19 MCHC 34 % (32-34) 09/21/20 09:19 RDW 15.0 % (13.2-15.2) 09/21/20 09:19 Plt Count 397 K/mm3 (140-440) 09/21/20 09:19 Lymph % (Auto) 14.0 % (13.4-35.0) 09/21/20 09:19 [place] % (Auto) 6.0 % (0.0-7.3) 09/21/20 09:19 Eos % (Auto) 0.4 % (0.0-4.3) 09/21/20 09:19 Baso % (Auto) 0.4 % (0.0-1.8) 09/21/20 09:19 Lymph # (Auto) 1.3 K/mm3 (1.2-5.4) 09/21/20 09:19 [place] # (Auto) 0.6 K/mm3 (0.0-0.8) 09/21/20 09:19 Eos # (Auto) 0.0 K/mm3 (0.0-0.4) 09/21/20 09:19 Baso # (Auto) 0.0 K/mm3 (0.0-0.1) 09/21/20 09:19 Seg Neutrophils % 79.2 % (40.0-70.0) H 09/21/20 09:19 Seg Neutrophils # 7.5 K/mm3 (1.8-7.7) 09/21/20 09:19 PT 12.6 Sec. (12.2-14.9) 09/13/20 13:17 INR 0.96 (0.87-1.13) 09/13/20 13:17 APTT 29.6 Sec. (24.2-36.6) 09/13/20 13:17 D-Dimer 472.35 ng/mlDDU (0-234) H 09/07/20 17:01 Sodium 125 mmol/L (137-145) L 09/21/20 09:19 Potassium 3.9 mmol/L (3.6-5.0) 09/21/20 09:19 Chloride 89.6 mmol/L (98-107) L 09/21/20 09:19 Carbon Dioxide 24 mmol/L (22-30) 09/21/20 09:19 Anion Gap 15 mmol/L 09/21/20 09:19 BUN 12 mg/dL (9-20) 09/21/20 09:19 Creatinine 0.6 mg/dL (0.8-1.3) L 09/21/20 09:19 Estimated GFR > 60 ml/min 09/21/20 09:19 BUN/Creatinine Ratio 20 % 09/21/20 09:19 Glucose 134 mg/dL (75-100) H 09/21/20 09:19 POC Glucose 152 mg/dL (70-105) H 09/21/20 08:51 Uric Acid 4.5 mg/dL (3.5-7.6) 09/13/20 05:06 Calcium 6.7 mg/dL (8.4-10.2) L 09/21/20 09:19 Magnesium 1.50 mg/dL (1.7-2.3) L 09/09/20 04:59 Ferritin 389.0 ng/mL (30.0-300.0) H 09/07/20 17:01 Total Bilirubin 0.30 mg/dL (0.1-1.2) 09/21/20 09:19 AST 30 units/L (5-40) 09/21/20 09:19 ALT 34 units/L (7-56) 09/21/20 09:19 Alkaline Phosphatase 139 units/L (35-129) H 09/21/20 09:19 Lactate Dehydrogenase 335 units/L (91-180) H 09/07/20 17:01 Total Creatine Kinase 146 units/L (55-170) 09/07/20 15:28 Troponin T 0.014 ng/mL (0.00-0.029) 09/07/20 15:28 C-Reactive Protein 1.60 mg/dL (0.00-1.30) H 09/07/20 17:01 NT-Pro-B Natriuret Pep 7924 pg/mL (0-900) H 09/20/20 06:18 Serum Total Protein 6.4 g/dL (6.1-8.1) 09/08/20 09:54 Total Protein 6.4 g/dL (6.3-8.2) 09/21/20 09:19 Albumin 2.7 g/dL (3.9-5) L 09/21/20 09:19 Albumin/Globulin Ratio 0.7 % 09/21/20 09:19 Kxqpz-8-Pbllwmoix 0.5 g/dL (0.2-0.3) H 09/08/20 09:54 Ppqka-1-Rusnbtlrk 0.9 g/dL (0.5-0.9) 09/08/20 09:54 Beta Globulins 0.5 g/dL (0.2-0.5) 09/08/20 09:54 Gamma Globulins 1.3 g/dL (0.8-1.7) 09/08/20 09:54 Abnorm Protein Band 1 see below 09/08/20 09:54 PEP Interpretation see below H 09/08/20 09:54 Angiotensin Convert Enz 22 U/L (9-67) 09/08/20 09:54 Carcinoembryonic Ag 3.1 ng/mL (0.0-2.4) H 09/11/20 05:18 25-OH Vitamin D Total See scanned result 09/10/20 05:15 25-Hydroxy Vitamin D2 See scanned result 09/10/20 05:15 1,25 Dihydroxy Vit D2 See scanned result 09/10/20 05:15 25-Hydroxy Vitamin D3 See scanned result 09/10/20 05:15 1,25 Dihydroxy Vit D3 See scanned result 09/10/20 05:15 Procalcitonin 0.24 ng/mL (<0.15) 09/20/20 06:18 TSH 2.730 mlU/mL (0.270-4.200) 09/07/20 15:28 Free T4 1.34 ng/dL (0.76-1.46) 09/07/20 15:28 PTH Intact 5.89 pg/mL (15-65) L 09/08/20 09:54 Urine Color Straw (Yellow) 09/07/20 21:05 Urine Turbidity Clear (Clear) 09/07/20 21:05 Urine pH 7.0 (5.0-7.0) 09/07/20 21:05 Ur Specific [place] 1.005 (1.003-1.030) 09/07/20 21:05 Urine Protein <15 mg/dl mg/dL (Negative) 09/07/20 21:05 Urine Glucose (UA) Neg mg/dL (Negative) 09/07/20 21:05 Urine Ketones Neg mg/dL (Negative) 09/07/20 21:05 Urine Blood Neg (Negative) 09/07/20 21:05 Urine Nitrite Neg (Negative) 09/07/20 21:05 Urine Bilirubin Neg (Negative) 09/07/20 21:05 Urine Urobilinogen < 2.0 mg/dL (<2.0) 09/07/20 21:05 Ur Leukocyte Esterase Neg (Negative) 09/07/20 21:05 Urine WBC (Auto) 1.0 /HPF (0.0-6.0) 09/07/20 21:05 Urine RBC (Auto) 1.0 /HPF (0.0-6.0) 09/07/20 21:05 Urine Bacteria (Auto) 1+ /HPF (Negative) 09/07/20 21:05 Urine Opiates Screen Negative 09/07/20 21:05 Urine Methadone Screen Negative 09/07/20 21:05 Ur Barbiturates Screen Negative 09/07/20 21:05 Ur Phencyclidine Scrn Negative 09/07/20 21:05 Ur Amphetamines Screen Negative 09/07/20 21:05 U Benzodiazepines Scrn Negative 09/07/20 21:05 Urine Cocaine Screen Negative 09/07/20 21:05 U Marijuana (THC) Screen Negative 09/07/20 21:05 Drugs of Abuse Note Disclamer 09/07/20 21:05 Plasma/Serum Alcohol < 0.01 % (0-0.07) 09/07/20 15:28 Coronavirus (PCR) Negative (Negative) 09/08/20 10:06 Microbiology: Microbiology 09/19/20 10:47 Peripheral/Venous Blood Culture - Preliminary NO GROWTH AFTER 48 HOURS 09/19/20 12:08 Peripheral/Venous Blood Culture - Preliminary NO GROWTH AFTER 24 HOURS Monique/IV: Voiding Method Urinal Active Medications - Current Medications Current Medications: Generic Name Dose Route Start Last Admin Trade Name Freq PRN Reason Stop Dose Admin Acetaminophen 650 mg 09/08/20 11:56 Acetaminophen 325 Mg Tab PO Q6H PRN Pain, Mild (1-3) Benzocaine/Menthol 1 each 09/15/20 17:51 09/17/20 18:20 Benzocaine/Menthol Lozenge MM 1 each Q2HR PRN Administration Sore Throat Dextrose 50 ml 09/07/20 18:15 09/09/20 22:20 Dextrose 50% In Water (25gm) 50 Ml Syringe IV 50 ml Q30MIN PRN Administration Hypoglycemia Protocol Enoxaparin Sodium 40 mg 09/15/20 10:00 09/21/20 09:56 Enoxaparin 40 Mg/0.4 Ml Inj SUB-Q 40 mg QDAY CLARCIE Administration Protocol Famotidine 20 mg 09/07/20 22:00 09/21/20 09:56 Famotidine 20 Mg Tab PO 20 mg BID CLARICE Administration Furosemide 40 mg 09/19/20 13:49 09/21/20 05:59 Furosemide 40 Mg/4 Ml Inj IV 40 mg 0600,1800 CLARICE Administration Cefepime HCl 2 gm in 100 mls @ 200 mls/hr 09/19/20 14:00 09/21/20 02:42 Cefepime/Ns 2 Gm/100 Ml IV 200 mls/hr Q12H CLARICE Administration Protocol Vancomycin HCl 1 gm in 250 mls @ 167.007 mls/hr 09/20/20 14:00 09/21/20 02:42 Vancomycin/Ns 1 Gm/250 Ml IV 167.007 mls/hr Q12H CLARICE Administration Insulin Human Lispro 0 unit 09/07/20 22:00 09/21/20 07:30 Insulin Lispro 100 Unit/Ml SUB-Q 2 unit ACHS CLARICE Administration Protocol Multivitamins 1 each 09/08/20 10:00 09/21/20 09:56 Multivitamins ,Therapeutic Tab PO 1 each QDAY CLARICE Administration Ondansetron HCl 4 mg 09/08/20 11:57 Ondansetron 4 Mg/2 Ml Inj IV Q8H PRN Nausea And Vomiting Oxycodone/Acetaminophen 1 tab 09/08/20 12:03 09/20/20 16:39 Oxycodone /Acetaminophen 5-325mg Tab PO 1 tab Q6H PRN Administration Pain, Moderate (4-6) Sodium Chloride 1 gm 09/19/20 22:00 09/21/20 10:05 Sodium Chloride 1 Gm Tab PO 1 gm BID CLARICE Administration Nutrition/Malnutrition Assess - Dietary Evaluation Nutrition/Malnutrition Findings: Nutrition Notes Start: 09/08/20 08:59 Freq: Status: Active Protocol: Document 09/20/20 12:57 [email or web address] (Rec: 09/20/20 13:10 [email or web address] [id number]) Co-Sign 09/20/20 12:57 MK Nutrition Notes Initial or Follow up Reassessment Current Diagnosis Diabetes,Hypertension Other Pertinent Diagnosis Lung CA, Pneumonia, Current Diet mechanical soft Labs/Tests Na 125 Cr 0.6 BG 140 Ca 6.6 Pertinent Medications mulitvitamin NaCl 1 g Lasix Height 5 ft 6 in Weight 72.6 kg [place] Body Weight (kg) 64.54 BMI 25.8 Weight change and time frame wt change noted Weight Status Appropriate Subjective/Other Information F/U PO intakes and ONS. Pt was eating breakfast at time of visit. Pt states he has a good appetite and is also drinking the Glucerna. Pt states he doesnt like the chocolate flavor but having variety is good. Percent of energy/protein needs met: 54%/67% Burn Absent Trauma Absent GI Symptoms None Food Allergy No Current % PO Fair (50-74%) Minimum of two criteria No physical signs of malnutrition Reduced A&P Technician Strength Measurably Reduced (severe) #2 Nutrition Diagnosis Inadequate oral intake As Evidenced by Signs and Symptoms Pt consuming 50% of PO intakes Diagnosis Progress(for reassessment Worsened documentation) Is patient on ventilator? No Is Patient Ambulatory and/or Out of Bed Yes REE-([facility]-ambulatory/OOB) [ [id number] [id number]] Calculation Used for Recommendations [facility] Additional Notes Protein needs 72-87g (1-1.2g/ kg for advanced age) Fluid needs are 1ml/kcal Nutrition Intervention Change Diet Order: Continue Mechanical Soft Diet Add Supplement/Snack (indicate name/kcal Glucerna BID /protein ) Provides kCal: 440 Provides Protein (gm) 20 Goal #1 Meet at least 80% of kcal and protein needs Anticipated Discharge Needs: Mechanical soft consistent CHO Follow-Up By: 09/24/20 Additional Comments F/U PO intakes and ONS
[2020-09-21] MEDS: oxyCODONE /ACETAMINOPHEN 5-325MG TAB PO PRN (16:50)
== END 2020-09-21 17:59 | disposition short-term general hospital (02) | DRG 871 ==
LOC: ED 12:16 → 3A 17:28 → 4A 09-08 17:43
PROVIDERS: ADMIT Hospitalist; ATTEND Internal Medicine
PROC: 0BBG3ZX Excision of Left Upper Lung Lobe, Percutaneous Approach, Diagnostic (ICD-10-PCS; principal; 2020-09-16)
PROC: 0WB83ZX Excision of Chest Wall, Percutaneous Approach, Diagnostic (ICD-10-PCS; 2020-09-16)
DX: A41.9 Sepsis, unspecified organism (principal); J18.9 Pneumonia, unspecified organism; G92 Toxic encephalopathy; J98.59 Other diseases of mediastinum, not elsewhere classified; J96.01 Acute respiratory failure with hypoxia; E22.2 Syndrome of inappropriate secretion of antidiuretic hormone; C34.92 Malignant neoplasm of unspecified part of left bronchus or lung; E87.6 Hypokalemia; E11.9 Type 2 diabetes mellitus without complications; I10 Essential (primary) hypertension; E83.42 Hypomagnesemia; E83.52 Hypercalcemia; Z20.822 Contact with and (suspected) exposure to COVID-19; F12.90 Cannabis use, unspecified, uncomplicated
CPT/HCPCS: 32408; 36415; 70450; 71045; 71250; 72170; 74176; 77012; 80048; 80053; 80202; 80307; 80320; 81001; 82164; 82306; 82378; 82550; 82728; 82947; 82962; 83615; 83735; 83880; 83970; 84145; 84165; 84439; 84443; 84484; 84550; 85025; 85379; 85610; 85730; 86140; 87040; 88305; 93005; 93306; 96365; 96366; 96368; 96374; 96375; 99406; G0378; C1769; G0480; J0456; J0630; J0692; J0696; J1170; J1644; J1650; J1815; J1885; J1940; J2405; J2430; J2920; J2930; J3010; J3370; J3475; J3480; J7030; J7040; J7050; U0003